=== PATIENT | male | born 1945 | race Caucasian/White ===

== ENCOUNTER 2018-06-23 21:50 | Inpatient (IN) | payer MEDICARE, OTHER ==
[~2018-06-23] VITALS: Ht 188 cm; Wt 114.3 kg
[~2018-06-23 21:50] MED LIST: ALPR0.254 PO; ASPI81TA28 PO; CLC100 PO; DILT240C57 PO; FOLI400T41 PO; ISOS-11 PO; MAGN400T24 PO; METO50TA17 PO; MRLP17 PO; OXY/15 PO; PANT1TAB4 PO; TACR1CAP PO; TAMS0.4C38 PO; WARF2.5T8 PO
[2018-06-23] MEDS ORDERED: ALBUT/IPRATROP 3MG/0.5MG NEB 3 ML VIAL INH STA ×2 (22:11→23:21)
--- NOTE | 2018-06-23 22:14 | EMERGENCY ROOM VISIT NOTE ---
History Report prepared by Liudmila: Dar Mckeon Under the Supervision of: Dr. Brad Murguia M.D. First contact with patient: 22:05 Chief Complaint: SHORTNESS OF BREATH Stated Complaint: DIFF. BREATHING History of Present Illness The patient is a 72 year old male who presents to the Emergency Room with complaints of constant shortness of breath beginning earlier today. The patient states he has a white, productive cough that began yesterday. He reports he used to work in the [employer] when he was younger, and he denies a history of smoking and asthma. The patient notes he has a history of a liver transplant, chemotherapy, and radiation. He denies missing his medications, wearing oxygen, and fevers. Nursing staff reports the patient's O2Sat was 80 in the field, and he was given a Duoneb and 125mg of Solu-Medrol. Source of History: patient Onset: earlier today Position: other (lungs) Quality: other (SOB) Timing: constant Associated Symptoms: + cough, No fevers Review of Systems See HPI for pertinent positives and negatives. A total of ten systems were reviewed and were otherwise negative. Past Medical & Surgical Medical Problems: (1) CAD (coronary artery disease) (2) cancer (3) Cellulitis (4) CHF (congestive heart failure) (5) FTT (failure to thrive) in adult (6) HTN (hypertension) Family History Cancer (Lung) Dyslipidemia Hypertension [place] Social History Smoking Status: Never Smoker Alcohol Use: heavy Drug Use: none Marital Status: Housing Status: lives with family Occupation Status: unemployed Current/Historical Medications Scheduled Alprazolam (Xanax), 1 MG PO AMHS Alprazolam (Xanax), 0.5 TAB PO EVERY AFTERNOON Aspirin (Aspirin Ec), 81 MG PO DAILY Diltiazem Hcl Coated Beads (Diltiazem Hcl Er), 300 MG PO DAILY Furosemide (Furosemide), 40 MG PO DAILY Isosorbide Mononitrate Ext Rel (Imdur Ext Rel), 30 MG PO DAILY Metoprolol Tartrate (Lopressor) (Lopressor), 50 MG PO BID Pantoprazole (Pantoprazole Sodium), 40 MG PO DAILY Pramipexole Dihydrochloride (Pramipexole Dihydrochlori), 1 MG PO BID Sertraline HCl (Sertraline HCl), 150 MG PO DAILY Tamsulosin Hcl (Flomax), 0.4 MG PO QPM Warfarin Sod (Jantoven), 2.5 MG PO UD Scheduled PRN Dicyclomine HCl (Dicyclomine HCl), 20 MG PO BID PRN for ABDOMINAL CRAMPING Oxycodone Hcl (Oxycodone Hcl), 15 MG PO BID PRN for Pain Allergies Coded Allergies: Acetaminophen (Verified Allergy, Unknown, Unknown., 06/24/18) Source-PT list. Morphine (Verified Adverse Reaction, Unknown, FELT LOOPY, 06/24/18) Source-PT list. Physical Exam Vital Signs Date Time Temp Pulse Resp B/P (MAP) Pulse Ox O2 Delivery O2 Flow Rate FiO2 06/23/18 23:07 70 20 122/70 94 Nasal Cannula 3.0 06/23/18 22:22 70 06/23/18 21:50 93 Nasal Cannula 4.0 06/23/18 21:50 90 Room Air 06/23/18 21:50 94 Nasal Cannula 4.0 06/23/18 21:50 36.6 70 20 114/70 90 Room Air Physical Exam Physical Exam GENERAL: He is oriented to person, place, and time. He appears well-developed and well-nourished. He does not appear distressed. HENT: Exam performed. Head: Normocephalic and atraumatic. Right Ear: External ear normal. No mastoid tenderness. Left Ear: External ear normal. No mastoid tenderness. Mouth/Throat: The oropharynx is clear and moist. No trismus in the jaw. No dental abscesses or uvula swelling. No oropharyngeal exudate or tonsillar abscesses. EYES: Conjunctivae and EOM are normal. Pupils are equal, round, and reactive to light. Right eye exhibits no discharge. Left eye exhibits no discharge. No scleral icterus. NECK: Normal range of motion. Neck supple. No JVD present. No spinous process tenderness present. No carotid bruit present. No rigidity. No tracheal deviation and normal range of motion present. No Brudzinski's sign and no Kernig 's sign noted. CV: Normal rate, regular rhythm, normal heart sounds and intact distal pulses. There is no peripheral edema. Palpable radial pulses bue. PULM/CHEST: Effort normal and breath sounds normal. No respiratory distress. No stridor. He has diffuse, bilateral, expiratory wheezes. He has diffuse, bilateral inspiratory rales. Chest Wall: He exhibits no tenderness. ABD: The abdomen is soft. Bowel sounds are normal. He has no distension. No mass is present. There is no tenderness. There is no rebound, no guarding, no Arauz's sign and no tenderness at McBurney's point. Rovsig negative. Scars over the anterior abdominal wall. MUSC/SKEL: Normal range of motion. There is no peripheral edema, tenderness or deformity. LYMPH: No cervical adenopathy. NEURO: He is alert and oriented to person, place, and time. He has normal strength. No cranial nerve deficit or sensory deficit. Coordination and gait normal. GCS eye subscore is 4. GCS verbal subscore is 5. GCS motor subscore is 6. Cerebellar tests wnl. SKIN: Skin is warm and dry. He is not diaphoretic. PSYCH: He has a normal mood and affect. Behavior is normal. Judgment and thought content normal. Medical Decision & Procedures ER Provider Diagnostic Interpretation: X-ray: Per my interpretation, radiologist review. CHEST ONE VIEW PORTABLE CLINICAL HISTORY: Chest pain. Respiratory difficulty. COMPARISON STUDY: Chest radiograph November 02, 2016. FINDINGS: A left subclavian biventricular pacemaker is unchanged in position. There is no pneumothorax or pleural effusion. Moderate cardiomegaly is noted. Right basilar airspace opacity is noted. There is minimal left basilar opacity. IMPRESSION: 1. Bibasilar opacities, greater on the right. The findings favor pneumonia. Radiographic follow up is recommended to ensure resolution. 2. Moderate cardiomegaly. Electronically signed by: Ulcies Ferrell M.D. 06/23/2018 10:29 PM Dictated Date/Time: 06/23/2018 10:27 PM Laboratory Results 06/23/18 22:35 Red Blood Count 4.38, Mean Corpuscular Volume 88.6, Mean Corpuscular Hemoglobin 30.4, Mean Corpuscular Hemoglobin Concent 34.3, Mean Platelet Volume 11.0, Neutrophils (%) (Auto) 65.0, Lymphocytes (%) (Auto) 18.4, Monocytes (%) (Auto) 4.3, Eosinophils (%) (Auto) 11.9, Basophils (%) (Auto) 0.2, Neutrophils # (Auto ) 2.99, Lymphocytes # (Auto) 0.85, Monocytes # (Auto) 0.20, Eosinophils # (Auto ) 0.55, Basophils # (Auto) 0.01 06/23/18 22:35 Test 06/23/18 22:35 White Blood Count 4.61 K/uL (4.8-10.8) Red Blood Count 4.38 M/uL (4.7-6.1) Hemoglobin 13.3 g/dL (14.0-18.0) Hematocrit 38.8 % (42-52) Mean Corpuscular Volume 88.6 fL (80-100) Mean Corpuscular Hemoglobin 30.4 pg (25-34) Mean Corpuscular Hemoglobin Concent 34.3 g/dl (32-36) Platelet Count 137 K/uL (130-400) Mean Platelet Volume 11.0 fL (7.4-10.4) Neutrophils (%) (Auto) 65.0 % Lymphocytes (%) (Auto) 18.4 % Monocytes (%) (Auto) 4.3 % Eosinophils (%) (Auto) 11.9 % Basophils (%) (Auto) 0.2 % Neutrophils # (Auto) 2.99 K/uL (1.4-6.5) Lymphocytes # (Auto) 0.85 K/uL (1.2-3.4) Monocytes # (Auto) 0.20 K/uL (0.11-0.59) Eosinophils # (Auto) 0.55 K/uL (0-0.5) Basophils # (Auto) 0.01 K/uL (0-0.2) RDW Standard Deviation 45.2 fL (36.4-46.3) RDW Coefficient of Variation 13.8 % (11.5-14.5) Immature Granulocyte % (Auto) 0.2 % Immature Granulocyte # (Auto) 0.01 K/uL (0.00-0.02) Prothrombin Time 11.3 SECONDS (9.0-12.0) Prothromb Time International Ratio 1.1 (0.9-1.1) Activated Partial Thromboplast Time 31.1 SECONDS (21.0-31.0) Partial Thromboplastin Ratio 1.2 Venous Blood pH 7.41 (7.36-7.41) Venous Blood Partial Pressure CO2 43 mmHg (38.0-50.0) Venous Blood Partial Pressure O2 30 mmHg Venous Blood HCO3 27 mmol/L Venous Blood Oxygen Saturation < 60.0 % Venous Blood Base Excess 1.8 mEq/L Anion Gap 9.0 mmol/L (3-11) Est Creatinine Clear Calc Drug Dose 53.6 ml/min Estimated GFR () 47.0 Estimated GFR (Non- 40.6 BUN/Creatinine Ratio 14.3 (10-20) Lactic Acid Level 1.7 mmol/L (0.4-2.0) Calcium Level 8.6 mg/dl (8.5-10.1) Total Bilirubin 0.5 mg/dl (0.2-1) Direct Bilirubin 0.2 mg/dl (0-0.2) Aspartate Amino Transf (AST/SGOT) 20 U/L (15-37) Alanine Aminotransferase (ALT/SGPT) 14 U/L (12-78) Alkaline Phosphatase 97 U/L (45-117) Troponin I < 0.015 ng/ml (0-0.045) Pro-B-Type Natriuretic Peptide 1865 pg/ml (0-900) Total Protein 7.8 gm/dl (6.4-8.2) Albumin 3.6 gm/dl (3.4-5.0) Lipase 132 U/L (73-393) Laboratory results reviewed by me Medications Administered Medications (Trade) Dose Ordered Sig/Amanda Route Start Time Stop Time Status Last Admin Dose Admin Albuterol/ Ipratropium (Duoneb) 3 ml NOW STAT INH 06/23/18 22:11 06/23/18 22:12 DC 06/23/18 22:29 3 ML Vancomycin HCl (Vancomycin 1gm Ed/Asu Omnicell) 1 gm NOW STAT IV 06/23/18 22:34 06/23/18 22:35 DC 06/24/18 00:26 1 GM Piperacillin Sod/ Tazobactam Sod (Zosyn Iv) 4.5 gm NOW STAT IV 06/23/18 22:34 06/23/18 22:35 DC 06/23/18 23:07 4.5 GM Sodium Chloride 1,000 ml @ 125 mls/hr Q8H STAT IV 06/23/18 22:35 06/24/18 06:34 06/23/18 23:07 125 MLS/HR Albuterol/ Ipratropium (Duoneb) 3 ml NOW STAT INH 06/23/18 23:21 06/23/18 23:22 DC 06/24/18 00:26 3 ML ECG Per My Interpretation Indication: SOB/dyspnea Rate (beats per minute): 70 Rhythm: other (paced) Findings: no ectopy, other (QRS 162, QTc 522) ED Course 2207: The patient was evaluated in room A02. A complete history and physical exam was performed. 2210: Ordered Duoneb 3ml INH 2231: I reevaluated the patient. Breathing treatments have been started. The chest x-ray shows a right sided pneumonia. Given that he is on tacrolimus for his liver transplant, he will be given broad antibiotic treatment with Vancomycin and Zosyn for HCAP. Blood cultures will be sent. 2234: Ordered Zosyn 4.5gm IV, Vancomycin HCl 1gm IV 2235: Ordered Sodium Chloride 1000 ml @ 125 mls/hr IV 2321: Ordered Duoneb 3ml INH 0007: I discussed the patient's case with Dr. Cleveland [facility] Hospitalist. The patient will be evaluated for further management and care. Medical Decision 2207: The patient was evaluated in room A02. A complete history and physical exam was performed. 2210: Ordered Duoneb 3ml INH 2231: I reevaluated the patient. Breathing treatments have been started. The chest x-ray shows a right sided pneumonia. Given that he is on tacrolimus for his liver transplant, he will be given broad antibiotic treatment with Vancomycin and Zosyn for HCAP. Blood cultures will be sent. 2234: Ordered Zosyn 4.5gm IV, Vancomycin HCl 1gm IV 2235: Ordered Sodium Chloride 1000 ml @ 125 mls/hr IV 2321: Ordered Duoneb 3ml INH 0007: No leukocytosis or lactic acidemia. I discussed the patient's case with Dr. Cleveland [facility] Hospitalist. The patient will be evaluated for further management and care. Medication Reconcilliation Current Medication List: was personally reviewed by me Blood Pressure Screening Patient's blood pressure: Normal blood pressure Blood pressure disposition: Did not require urgent referral Consults Time Called: 0004 Consulting Physician: Dr. Cleveland [facility] Hospitalist Returned Call: 6 I discussed the patient's case with Dr. Cleveland [facility] Hospitalist. The patient will be evaluated for further management and care. Impression Primary Impression: Healthcare-associated pneumonia Additional Impression: Hypoxia Critical Care I have personally spent greater than 31 minutes of critical care time in the direct management of this patient. This includes bedside care, interpretation of diagnostic studies, and testing, discussion with consultants, patient, and family members, and other required patient management activities. This 31 minutes is in excess of all separately billable procedures. Scribe Attestation The scribe's documentation has been prepared under my direction and personally reviewed by me in its entirety. I confirm that the note above accurately reflects all work, treatment, procedures, and medical decision making performed by me. The chart was completed utilizing [employer] Speech voice recognition software. Grammatical errors, random word insertions, pronoun errors, and incomplete sentences are an occasional consequence of this system due to software limitations, ambient noise, and hardware issues. Any formal questions or concerns about the content, text, or information contained within the body of this dictation should be directly addressed to the physician for clarification. Departure Information Dispostion Being Evaluated By Hospitalist Referrals Milton Dia M.D. (PCP) Patient Instructions My [facility] [address] Problem Qualifiers
--- NOTE | 2018-06-23 22:30 | DIAGNOSTIC IMAGING REPORT ---
CHEST ONE VIEW PORTABLE CLINICAL HISTORY: Chest pain. Respiratory difficulty. COMPARISON STUDY: Chest radiograph November 02, 2016. FINDINGS: A left subclavian biventricular pacemaker is unchanged in position. There is no pneumothorax or pleural effusion. Moderate cardiomegaly is noted. Right basilar airspace opacity is noted. There is minimal left basilar opacity. IMPRESSION: 1. Bibasilar opacities, greater on the right. The findings favor pneumonia. Radiographic follow up is recommended to ensure resolution. 2. Moderate cardiomegaly. Electronically signed by: Ulices Ferrell M.D. 06/23/2018 10:29 PM Dictated Date/Time: 06/23/2018 10:27 PM
[2018-06-23] MEDS ORDERED: PIPERACILLIN/TAZOBACTAM 4.5 GM/100ML D5W IV STA (22:34)
[2018-06-23] MEDS ORDERED: VANCOMYCIN 1GM ED/ASU OMNICELL IV STA (22:34)
[2018-06-23] MEDS ORDERED: SODIUM CHLORIDE 0.9% 1000ML 1,000 ML IV STA (22:35)
[2018-06-23 23:00] LABS: BASO % 0.2 %; BASO ABS # 0.01 K/uL (0-0.2); EOS % 11.9 %; EOS ABS # 0.55 K/uL (0-0.5); HEMATOCRIT 38.8 % (42-52); HEMOGLOBIN 13.3 g/dL (14.0-18.0); IG# 0.01 K/uL (0.00-0.02); LYMPH % 18.4 %; LYMPH ABS # 0.85 K/uL (1.2-3.4); MEAN CELL VOLUME 88.6 fL (80-100); MEAN CORPUSCULAR HEMOGLOBIN 30.4 pg (25-34); MEAN CORPUSCULAR HGB CONC 34.3 g/dl (32-36); MONO % 4.3 %; NEUT ABS # 2.99 K/uL (1.4-6.5); PLATELET COUNT 137 K/uL (130-400); RED CELL DISTRIBUTION WIDTH CV 13.8 % (11.5-14.5); RED CELL DISTRIBUTION WIDTH SD 45.2 fL (36.4-46.3); WHITE BLOOD COUNT 4.61 K/uL (4.8-10.8)
[2018-06-23 23:13] LABS: INR 1.1 (0.9-1.1); PTT PATIENT 31.1 SECONDS (21.0-31.0)
[2018-06-23 23:22] LABS: ALBUMIN 3.6 gm/dl (3.4-5.0); ALKALINE PHOSPHATASE 97 U/L (45-117); ALT/SGPT 14 U/L (12-78); AST/SGOT 20 U/L (15-37); BLOOD UREA NITROGEN 24 mg/dl (7-18); CALCIUM 8.6 mg/dl (8.5-10.1); CARBON DIOXIDE 23 mmol/L (21-32); CREATININE 1.64 mg/dl (0.60-1.40); GLUCOSE 111 mg/dl (70-99); LIPASE 132 U/L (73-393); POTASSIUM 3.6 mmol/L (3.5-5.1); SODIUM 140 mmol/L (136-145); TOTAL PROTEIN 7.8 gm/dl (6.4-8.2)
[2018-06-24] VITALS (11 sets, daily range): BP systolic 118–177; BP diastolic 63–82; PULSE 70–99; TEMP 36.4–36.9; O2SAT 92–100; Ht 188 cm; Wt 114.3 kg
[2018-06-24] MEDS ORDERED: METO50TA16 PO (00:13)
[2018-06-24] MEDS ORDERED: LSX40 PO (00:13)
[2018-06-24] MEDS ORDERED: ZLF/100 PO (00:13)
[2018-06-24] MEDS ORDERED: ISOS30TA35 PO (00:14)
[2018-06-24] MEDS ORDERED: DILT300C PO (00:15)
[2018-06-24] MEDS ORDERED: ALPR1TAB3 PO (00:16)
[2018-06-24] MEDS ORDERED: ALPR-385 PO (00:16)
[2018-06-24] MEDS ORDERED: PANT40TA2 PO (00:18)
[2018-06-24] MEDS ORDERED: PRAM1TAB10 PO (00:18)
[2018-06-24] MEDS ORDERED: DICY1TAB25 PO (00:21)
[2018-06-24] MEDS ORDERED: ONDANSETRON INJ 2 MG/ML 2 ML VIAL IV PRN (00:45)
[2018-06-24] MEDS ORDERED: DICYCLOMINE HCL 20 MG TAB PO PRN (00:45)
[2018-06-24] MEDS ORDERED: VANCOMYCIN CONSULT ACTIVE PRN (00:45)
[2018-06-24] MEDS ORDERED: PIPERACILL/TAZOBAC CONSULT ACTIVE PRN (00:45)
--- NOTE | 2018-06-24 00:54 | History and Physical ---
History & Physical Date & Time of Service: Jun 24, 2018 at 00:52 Chief Complaint: Diff. Breathing Primary Care Physician: Milton Dia M.D. History of Present Illness Source: patient, hospital records Patient is a 72 year old male that presents with a past medical history of hypertension, atrial fibrillation, CKD stage 3, chronic diastolic CHF, HTN, Liver transplant on Prograf and tacrolimus, BPH, and depression that presents with worsening shortness of breath since this afternoon. The patient was at home when he began to develop progressive shortness of breath with cough. His cough is productive of white sputum. He denies any fevers, chills, sweats, chest pain, lower extremity pain, or any other acute complaints. The patient does have atrial fibrillation but denies any associated palpitations. 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 Past Medical/Surgical History Medical Problems: (1) Acute kidney injury (2) Acute pneumonia (3) Acute renal failure (4) Acute respiratory failure with hypoxia (5) Ambulatory dysfunction (6) Arrhythmia as indication for cardiac pacemaker replacement (7) CAD (coronary artery disease) (8) cancer (9) Cellulitis (10) Cellulitis of right leg (11) CHF (congestive heart failure) (12) CHF (congestive heart failure) (13) CKD (chronic kidney disease) (14) Confusion (15) Confusion (16) CVA (cerebral vascular accident) (17) CVA (cerebral vascular accident) (18) Diarrhea (19) FTT (failure to thrive) in adult (20) HTN (hypertension) (21) Immunocompromised patient (22) liver transplant (23) CT (myocardial infarction) (24) TIA (transient ischemic attack) (25) Tinea corporis (26) Weakness Family History Cancer (Lung) Dyslipidemia Hypertension CT Social History Smoking Status: Never Smoker Smokeless Tobacco Use: No Alcohol Use: none Drug Use: none Marital Status: Housing status: lives alone Occupational Status: unemployed Immunizations History of Influenza Vaccine: Unknown History of Tetanus Vaccine?: Unknown History of Pneumococcal: Unknown History of Hepatitis B Vaccine: Unknown Allergies Coded Allergies: Acetaminophen (Verified Allergy, Unknown, Unknown., 06/24/18) Source-PT list. Morphine (Verified Adverse Reaction, Unknown, FELT LOOPY, 06/24/18) Source-PT list. Home Medications Scheduled Alprazolam (Xanax), 1 MG PO AMHS Alprazolam (Xanax), 0.5 TAB PO EVERY AFTERNOON Aspirin (Aspirin Ec), 81 MG PO DAILY Diltiazem Hcl Coated Beads (Diltiazem Hcl Er), 300 MG PO DAILY Furosemide (Furosemide), 40 MG PO DAILY Isosorbide Mononitrate Ext Rel (Imdur Ext Rel), 30 MG PO DAILY Metoprolol Tartrate (Lopressor) (Lopressor), 50 MG PO BID Pantoprazole (Pantoprazole Sodium), 40 MG PO DAILY Pramipexole Dihydrochloride (Pramipexole Dihydrochlori), 1 MG PO BID Sertraline HCl (Sertraline HCl), 150 MG PO DAILY Tamsulosin Hcl (Flomax), 0.4 MG PO QPM Warfarin Sod (Jantoven), 2.5 MG PO UD Scheduled PRN Dicyclomine HCl (Dicyclomine HCl), 20 MG PO BID PRN for ABDOMINAL CRAMPING Oxycodone Hcl (Oxycodone Hcl), 15 MG PO BID PRN for Pain Review of Systems Constitutional: No fever, No chills, No sweats, No weight loss, No fatigue Respiratory: + cough, + sputum, + wheezing, + shortness of breath, + dyspnea on exertion Cardiovascular: No chest pain, No palpitations Abdomen: No pain, No nausea, No vomiting, No diarrhea, No constipation Genitourinary - Male: No hematuria, No dysuria Endocrine: No fatigue, No excessive urination Integumentary: No rash, No itch Physical Exam Vital Signs Date Time Temp Pulse Resp B/P (MAP) Pulse Ox O2 Delivery O2 Flow Rate FiO2 06/23/18 23:07 70 20 122/70 94 Nasal Cannula 3.0 06/23/18 22:22 70 06/23/18 21:50 93 Nasal Cannula 4.0 06/23/18 21:50 90 Room Air 06/23/18 21:50 94 Nasal Cannula 4.0 06/23/18 21:50 36.6 70 20 114/70 90 Room Air General Appearance: WD/WN, no apparent distress Head: normocephalic, atraumatic Eyes: normal inspection, sclerae normal Neck: supple, no carotid bruits Respiratory/Chest: chest non-tender, no respiratory distress, no accessory muscle use, + rhonchi, + wheezing Cardiovascular: regular rate, rhythm, no edema, no gallop Abdomen/GI: normal bowel sounds, non tender, soft Back: normal inspection, no CVA tenderness Extremities/Musculoskelatal: no calf tenderness, no pedal edema Neurologic/Psych: alert, normal mood/affect, oriented x 3 Diagnostics Laboratory Results Results Past 24 Hours Test 06/23/18 22:35 Range/Units White Blood Count 4.61 4.8-10.8 K/uL Red Blood Count 4.38 4.7-6.1 M/uL Hemoglobin 13.3 14.0-18.0 g/dL Hematocrit 38.8 42-52 % Mean Corpuscular Volume 88.6 80-100 fL Mean Corpuscular Hemoglobin 30.4 25-34 pg Mean Corpuscular Hemoglobin Concent 34.3 32-36 g/dl Platelet Count 137 130-400 K/uL Mean Platelet Volume 11.0 7.4-10.4 fL Neutrophils (%) (Auto) 65.0 % Lymphocytes (%) (Auto) 18.4 % Monocytes (%) (Auto) 4.3 % Eosinophils (%) (Auto) 11.9 % Basophils (%) (Auto) 0.2 % Neutrophils # (Auto) 2.99 1.4-6.5 K/uL Lymphocytes # (Auto) 0.85 1.2-3.4 K/uL Monocytes # (Auto) 0.20 0.11-0.59 K/uL Eosinophils # (Auto) 0.55 0-0.5 K/uL Basophils # (Auto) 0.01 0-0.2 K/uL RDW Standard Deviation 45.2 36.4-46.3 fL RDW Coefficient of Variation 13.8 11.5-14.5 % Immature Granulocyte % (Auto) 0.2 % Immature Granulocyte # (Auto) 0.01 0.00-0.02 K/uL Prothrombin Time 11.3 9.0-12.0 SECONDS Prothromb Time International Ratio 1.1 0.9-1.1 Activated Partial Thromboplast Time 31.1 21.0-31.0 SECONDS Partial Thromboplastin Ratio 1.2 Venous Blood pH 7.41 7.36-7.41 Venous Blood Partial Pressure CO2 43 38.0-50.0 mmHg Venous Blood Partial Pressure O2 30 mmHg Venous Blood HCO3 27 mmol/L Venous Blood Oxygen Saturation < 60.0 % Venous Blood Base Excess 1.8 mEq/L Sodium Level 140 136-145 mmol/L Potassium Level 3.6 3.5-5.1 mmol/L Chloride Level 108 98-107 mmol/L Carbon Dioxide Level 23 21-32 mmol/L Anion Gap 9.0 3-11 mmol/L Blood Urea Nitrogen 24 7-18 mg/dl Creatinine 1.64 0.60-1.40 mg/dl Est Creatinine Clear Calc Drug Dose 53.6 ml/min Estimated GFR () 47.0 Estimated GFR (Non- 40.6 BUN/Creatinine Ratio 14.3 10-20 Random Glucose 111 70-99 mg/dl Lactic Acid Level 1.7 0.4-2.0 mmol/L Calcium Level 8.6 8.5-10.1 mg/dl Total Bilirubin 0.5 0.2-1 mg/dl Direct Bilirubin 0.2 0-0.2 mg/dl Aspartate Amino Transf (AST/SGOT) 20 15-37 U/L Alanine Aminotransferase (ALT/SGPT) 14 12-78 U/L Alkaline Phosphatase 97 45-117 U/L Troponin I < 0.015 0-0.045 ng/ml Pro-B-Type Natriuretic Peptide 1865 0-900 pg/ml Total Protein 7.8 6.4-8.2 gm/dl Albumin 3.6 3.4-5.0 gm/dl Lipase 132 73-393 U/L Microbiology Results 06/23/18 Blood Culture, Received Pending 06/23/18 Blood Culture, Received Pending Impression Assessment and Plan Patient is a 72 year old male that presents with a past medical history of hypertension, atrial fibrillation, CKD stage 3, chronic diastolic CHF, HTN, Liver transplant on Prograf and tacrolimus, BPH, and depression that presents with worsening shortness of breath since this afternoon Acute Hypoxic Respiratory Failure - CXR: Bibasilar Opacities - CT Chest - Oxygen as needed to maintain SpO2 > 90% - Duonebs - Admit Telemetry HCAP - Vancomycin - Zosyn - Blood Cultures x 2 CKD Stage 3 - Cr 1.64 - Daily BMP Chronic Atrial Fibrillation - Continue home Metoprolol and Diltiazem - Continue home Coumadin --> Subtherapeutic INR of 1.1 - Heparin for time being due to INR Liver Transplant - Currently on Prograf and Tacrolimus - Broad spectrum antibiotic coverage as above due to immunocompromised state Chronic Diastolic CHF/ HTN/ BPH - Continue home meds DVT - Heparin Code Status - Full Resuscitation Attending addendum: I have physically seen this patient, have supervised the medical residents activities, and agree with the H&P unless as otherwise noted. Assessment and Plan: Acute respiratory failure with hypoxia/bilateral pneumonia right greater than left-- Admit to monitored bed. Vancomycin IV per pharmacokinetic monitoring Zosyn 3.375 mg IV every 8 hours Duonebs every 4 hours while awake and every 2 hours when necessary. Solu-Medrol 40 mg IV every 8 hours Guaifenesin extended release 600 mg by mouth twice a day Nasal cannula oxygen titrate to keep pulse ox greater than or equal to 92% Chronic atrial fibrillation/hypertension/chronic diastolic CHF-- Continue metoprolol, diltiazem, and IMDUR Continue Coumadin, with heparin bridge due to subtherapeutic levels. Post liver transplant-- Continue Prograf and tacrolimus. Broad-spectrum antibiotics as above. Remaining notes and orders as noted above. Advanced Directives Existing Advance Directive: No Existing Living Will: No Existing Power of Mesmerist: No Resuscitation Status Full Resuscitation VTE Prophylaxis Will order VTE Prophylaxis: Yes Social Service Consult None Apply Resident Tracking Resident Involvement: Resident Care Provided Care Provided: Adult Hospital Medicine
[2018-06-24] MEDS ORDERED: HEPARIN IV LOW DOSE NO BOLUS SCH (01:34)
[2018-06-24] MEDS ORDERED: HEPARIN 25000 UNIT/500 ML D5W ONE (01:43)
[2018-06-24] MEDS ORDERED: VANCOMYCIN IV 1,250 MG in SODIUM CHLORIDE 0.9% 250ML 250 ML IV STA (03:41)
[2018-06-24] MEDS ORDERED: NURSING VERBAL MED ORDER ONE (03:45)
[2018-06-24] MEDS: HEPARIN 25,000 UNIT/500ML D5W 500 ML IV SCH ×2 (04:11→17:39)
[2018-06-24] MEDS: PIPERACILL/TAZOBAC IV 3.375 GM in DEXTROSE 5% 100ML 100 ML IV SCH ×3 (05:55→23:55)
[2018-06-24 06:22] LABS: EOS % 1.5 %; EOS ABS # 0.06 K/uL (0-0.5); HEMATOCRIT 37.8 % (42-52); IG# 0.01 K/uL (0.00-0.02); LYMPH % 7.3 %; LYMPH ABS # 0.29 K/uL (1.2-3.4); MEAN CELL VOLUME 88.1 fL (80-100); MEAN CORPUSCULAR HEMOGLOBIN 30.3 pg (25-34); MEAN CORPUSCULAR HGB CONC 34.4 g/dl (32-36); MEAN PLATELET VOLUME 10.3 fL (7.4-10.4); MONO % 0.3 %; MONO ABS # 0.01 K/uL (0.11-0.59); NEUT % 90.6 %; NEUT ABS # 3.63 K/uL (1.4-6.5); PLATELET COUNT 106 K/uL (130-400); RED CELL DISTRIBUTION WIDTH CV 13.8 % (11.5-14.5); RED CELL DISTRIBUTION WIDTH SD 44.6 fL (36.4-46.3)
[2018-06-24 06:49] LABS: CALCIUM 8.5 mg/dl (8.5-10.1); CREATININE 1.54 mg/dl (0.60-1.40); POTASSIUM 3.5 mmol/L (3.5-5.1)
[2018-06-24] MEDS: ALBUT/IPRATROP 3MG/0.5MG NEB 3 ML VIAL INH SCH ×4 (07:00→19:06)
--- NOTE | 2018-06-24 08:00 | Family Medicine Progress Note ---
Progress Note Date of Service Jun 24, 2018. Subjective Pain: 0/10 PO Intake: Tolerating questionable aspiration Patient is a 72 year old male that presents with a past medical history of hypertension, atrial fibrillation, CKD stage 3, chronic diastolic CHF, HTN, Liver transplant on Prograf and tacrolimus, BPH, and depression that presents with worsening shortness of breath since this afternoon. The patient was at home when he began to develop progressive shortness of breath with cough. His cough is productive of white sputum. He denies any fevers, chills, sweats, chest pain, lower extremity pain, or any other acute complaints. The patient does have atrial fibrillation but denies any associated palpitations. 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 Patient resting comfortably this morning during the exam, no complaints over night, tolerating diet, toileting appropriately. Constitutional: + fever, + chills, + sweats ENT: + problem reported (difficulty swallowing food), No hearing loss Respiratory: + cough, + sputum, + wheezing Cardiovascular: No chest pain, No edema, No claudication Abdomen: No pain, No nausea, No vomiting, No diarrhea Musculoskeletal: + problem reported (lack of feeling in lower extremiteies) , No joint pain, No muscle pain, No calf pain Psychiatric: No depression symptoms, No anhedonism Heme: No abnormal bleeding/bruising, No clotting problems Endo: No fatigue, No excessive thirst Skin: + new/changing skin lesions (left 2 digit black ), No rash, No itch All Other Systems: Reviewed and Negative Medications Current Inpatient Medications Medications (Trade) Dose Ordered Sig/Amanda Route Start Time Stop Time Status Last Admin Dose Admin Ondansetron HCl (Zofran Inj) 4 mg Q6H PRN IV 06/24/18 00:45 07/24/18 00:44 Vancomycin HCl (Consult) 1 ea UD PRN N/A 06/24/18 00:45 07/24/18 00:44 Piperacillin Sod/ Tazobactam Sod 3.375 gm/Dextrose 115 ml @ 28.75 mls/ hr Q8 IV 06/24/18 06:00 06/26/18 05:59 06/24/18 05:55 28.75 MLS/HR Miscellaneous Information (Consult) 1 ea UD PRN N/A 06/24/18 00:45 07/24/18 00:44 Albuterol/ Ipratropium (Duoneb) 3 ml QIDR INH 06/24/18 08:00 07/24/18 07:59 06/24/18 07:00 3 ML Alprazolam (Xanax Tab) 1 mg AMHS PO 06/24/18 09:00 07/24/18 08:59 Aspirin (Ecotrin Tab) 81 mg DAILY PO 06/24/18 09:00 07/24/18 08:59 Dicyclomine HCl (Bentyl Tab) 20 mg BID PRN PO 06/24/18 00:45 07/24/18 00:44 Diltiazem HCl (Cardizem Cd Cap) 300 mg DAILY PO 06/24/18 09:00 07/24/18 08:59 Furosemide (Lasix Tab) 40 mg DAILY PO 06/24/18 09:00 07/24/18 08:59 Isosorbide Mononitrate (Imdur Ext Rel Tab) 30 mg DAILY PO 06/24/18 09:00 07/24/18 08:59 Metoprolol Tartrate (Lopressor Tab) 50 mg BID PO 06/24/18 09:00 07/24/18 08:59 Pantoprazole Sodium (Protonix Tab) 40 mg DAILY PO 06/24/18 09:00 07/24/18 08:59 Sertraline HCl (Zoloft Tab) 150 mg DAILY PO 06/24/18 09:00 07/24/18 08:59 Tamsulosin HCl (Flomax Cap) 0.4 mg QPM PO 06/24/18 21:00 07/24/18 20:59 Warfarin Sodium (Coumadin Tab) 2.5 mg UD PO 06/24/18 00:45 07/24/18 00:44 UNV Heparin Sodium/ Dextrose 500 ml @ 35 mls/hr [id number] IV 06/24/18 03:45 07/24/18 03:44 06/24/18 04:11 35 MLS/HR Objective Vital Signs Date Time Temp Pulse Resp B/P (MAP) Pulse Ox O2 Delivery O2 Flow Rate FiO2 06/24/18 07:00 70 20 96 Room Air 06/24/18 04:37 95 Room Air 7/28/18 03:55 36.9 70 17 130/76 (94) 92 Room Air 06/24/18 02:40 36.5 75 18 140/76 96 Room Air 06/24/18 02:04 72 19 111/63 93 Nasal Cannula 3.0 06/24/18 01:05 70 17 115/72 94 Nasal Cannula 3.0 06/23/18 23:07 70 20 122/70 94 Nasal Cannula 3.0 06/23/18 22:22 70 06/23/18 21:50 93 Nasal Cannula 4.0 06/23/18 21:50 90 Room Air 06/23/18 21:50 94 Nasal Cannula 4.0 06/23/18 21:50 36.6 70 20 114/70 90 Room Air Physical Exam General Appearance: WD/WN, no apparent distress Eyes: normal inspection, sclerae normal ENT: normal ENT inspection Neck: supple, thyroid normal, no carotid bruits, trachea midline Respiratory/Chest: chest non-tender, no respiratory distress, no accessory muscle use, + wheezing (b/l significant ) Cardiovascular: no edema, no murmur, + pertinent finding (Paced) Abdomen: normal bowel sounds, non tender, soft Extremities: non-tender, no pedal edema, no calf tenderness, normal capillary refill Neurologic/Psychiatric: alert, normal mood/affect, oriented x 3 Skin: normal color, warm/dry, no rash, + pertinent finding (left 2 digit on foot is dark ) Laboratory Results Date/Time Source Procedure Growth Status 06/23/18 22:39 Blood Blood Culture Pending Received 06/23/18 22:31 Blood Blood Culture Pending Received Last Resulted 06/24/18 06:02 Red Blood Count 4.29, Mean Corpuscular Volume 88.1, Mean Corpuscular Hemoglobin 30.3, Mean Corpuscular Hemoglobin Concent 34.4, Mean Platelet Volume 10.3, Neutrophils (%) (Auto) 90.6, Lymphocytes (%) (Auto) 7.3, Monocytes (%) (Auto) 0.3, Eosinophils (%) (Auto) 1.5, Basophils (%) (Auto) 0.0, Neutrophils # (Auto) 3.63, Lymphocytes # (Auto) 0.29, Monocytes # (Auto) 0.01, Eosinophils # (Auto) 0.06, Basophils # (Auto) 0.00 Last Resulted 06/24/18 06:02 Past 24 Hours Test 06/23/18 22:35 Range/Units Prothromb Time International Ratio 1.1 0.9-1.1 Prothrombin Time 11.3 9.0-12.0 SECONDS Troponin I < 0.015 0-0.045 ng/ml Assessment and Plan Patient is a 72 year old male that presents with a past medical history of hypertension, atrial fibrillation, CKD stage 3, chronic diastolic CHF, HTN, Liver transplant on Prograf and tacrolimus, 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 Associated basilar airspace opacities. 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 "pills get stuck in my throat and burn" - Vancomycin - Zosyn - Blood Cultures x 2 pendign CKD Stage 3 - Cr 1.64 - Daily BMP Chronic Atrial Fibrillation - Continue home Metoprolol and Diltiazem - Continue home Coumadin --> Subtherapeutic INR of 1.1 - Heparin for time being due to INR - No caffiene Liver Transplant - Prograf was not in med rec restarted this afternoon - Broad spectrum antibiotic coverage as above due to immunocompromised state Chronic Diastolic CHF/ HTN/ BPH - Continue home meds Venous Stasis -left foot 2nd digit is violaceous likely 2/2 venous stasis changes Family HX of liver cirrhosis/disease - Pt has liver transplant, of hcc, daughter having liver problems, son 2/2 liver cirrhosis - consider environmental exposures, s. bovis? DVT - Heparin Code Status - Full Resuscitation Resident Physician Supervision Note: I interviewed and examined the patient. Discussed with Dr. Diehl and agree with findings and plan as documented in the note. Any exceptions or clarifications are listed here: None Documented By: Franko Bhatt feeling better than last night breathing unlabored vitals noted nad fatigued appearing does not remember his prograf dosing - dtr called to make sure he was getting it but did not leave the dose, dr diehl tried to call back LM but no call back yet finally called his listed pharmacy - they were able to relay dosing - ordered to start philippe pneumonia - concern on aspiration - abx, improving, speech eval. -could also be HCAP but aspiration seems more likely - continue to follow but low threshold to be able to dc vanc otherwise as above Continued [facility] stay due to: multiple IV medications needed Discharge planning: home Resident Tracking Resident Involvement: Resident Care Provided Care Provided: Adult Hospital Medicine
--- NOTE | 2018-06-24 08:49 | DIAGNOSTIC IMAGING REPORT ---
(CHEST) THORAX WITHOUT CLINICAL HISTORY: Pneumonia. History of cancer. COMPARISON STUDY: Chest x-ray dated 06/23/2018 CT DOSE: 1171.25 mGy.cm TECHNIQUE: CT of the thorax was performed from the thoracic inlet to the lung bases. Images are reviewed in the axial, sagittal, and coronal planes. IV contrast was not administered for this examination. A dose lowering technique was utilized adhering to the principles of ALARA. FINDINGS: Thyroid: There is a multinodular left lobe thyroid goiter containing calcifications. There is substernal extension. Thoracic aorta: There is mild dilatation of the ascending thoracic aorta which measures 41 mm. Heart: The heart is enlarged. There are coronary artery calcifications. Lungs and pleural spaces: There is respiratory motion artifact. There is lower lobe bronchial wall thickening and mucous plugging. There are bilateral dependent airspace opacities. There is right middle lobe volume loss and bronchial wall thickening. There is a 7 mm right upper lobe groundglass pulmonary nodule. Mediastinum: Mediastinal lymph nodes are the upper limits of normal in size. Niecy: There is bilateral hilar enlargement, thigh which is limited due to the absence of intravenous contrast. Mild hilar lymph node enlargement is suspected along with prominent central pulmonary arteries Axilla: There are mildly prominent axillary lymph nodes which demonstrate normal fatty niecy Upper abdomen: The liver has a cirrhotic morphology. There is splenomegaly. Skeletal structures: There are no lytic or blastic osseous lesions. IMPRESSION: 1. Bilateral lower lobe bronchial wall thickening with mucous plugging. 2. Associated basilar airspace opacities. 3. Right middle lobe volume loss of bronchial wall thickening 4. 7 mm right upper lobe groundglass pulmonary nodule 5. Multinodular left lobe thyroid goiter with some sternal extension 6. Cardiomegaly and coronary artery calcifications Please refer to below summary of Fleischner criteria recommendations for follow-up of incidental CT nodules (Viviane Desai, Guidelines for management of small pulmonary nodules detected on CT scans: A statement from the Fleischner Society, Radiology 237: [phone].) SOLID NODULES Solitary nodule size: <6 mm * low risk patients: no follow-up needed * high risk patients: optional CT at 12 months Solitary nodule size: 6-8 mm * low risk patients: follow-up at 6-12 months, then consider further follow-up at 18-24 months * high risk patients: initial follow-up CT at 6-12 months and then at 18-24 months if no change Solitary nodule size: >8 mm * either low or high risk patients - consider follow-up CT at 3 months, and/or CT-PET, and/or biopsy Multiple nodules size: <6 mm * low risk patients: no routine follow-up * high risk patients: optional CT at 12 months Multiple nodules size: 6-8 mm * low risk patients: follow-up at 3-6 months, then consider further follow-up at 18-24 months * high risk patients: follow-up at 3-6 months, then at 18-24 months if no change Multiple nodules size: >8 mm * low risk patients: follow-up at 3-6 months, then consider further follow-up at 18-24 months * high risk patients: follow-up at 3-6 months, then at 18-24 months if no change Note: newly detected indeterminate nodule in persons 35 years of age or older. * low risk patients: minimal or absent history of smoking and/or other known risk factors * high risk patients: history of smoking or of other known risk factors (e.g. first degree relative with lung cancer, or exposure to asbestos, radon, uranium) * if a nodule up to 8 mm is partly solid or is ground glass further follow-up is required after 24 months to exclude possible slow growing adenocarcinoma ([place]) SUBSOLID NODULES Solitary pure ground-glass nodule * nodule size <6 mm - no CT follow-up required * nodule size >=6 mm - follow-up CT at 6-12 months, then every 2 years until 5 years Solitary part-solid nodule * nodule size <6 mm - no CT follow-up required * nodule size >=6 mm - follow-up CT at 3-6 months. If unchanged, and solid component remains <6 mm, then annual follow-up for 5 years Multiple subsolid nodules * nodule size <6 mm - follow-up CT at 3-6 months, consider further follow-up at 2 and 4 years if stable * nodule size >=6 mm - follow-up CT at 3-6 months, subsequent management based on the most suspicious nodule(s) Electronically signed by: Kashif Preciado M.D. 06/24/2018 8:47 AM Dictated Date/Time: 06/24/2018 8:40 AM
[2018-06-24] MEDS: ASPIRIN 81 MG ECTAB PO SCH (09:04)
[2018-06-24] MEDS: DILTIAZEM HCL 300 MG CAPCR PO SCH (09:04)
[2018-06-24] MEDS: ISOSORBIDE MONONITRATE 30 MG TABCR PO SCH (09:04)
[2018-06-24] MEDS: SERTRALINE HCL 100 MG TAB PO SCH (09:04)
[2018-06-24] MEDS: FUROSEMIDE 40 MG TAB PO SCH (09:05)
[2018-06-24] MEDS: METOPROLOL TARTRATE 50 MG TAB PO SCH ×2 (09:05→19:32)
[2018-06-24] MEDS: PANTOprazole SOD 40 MG TAB PO SCH (09:05)
[2018-06-24 09:10] LABS: PTT PATIENT 142.4 SECONDS (21.0-31.0)
[2018-06-24] MEDS: ALPRAZOLAM 0.5 MG TAB PO SCH ×2 (09:13→19:31)
--- NOTE | 2018-06-24 14:51 | Pharmacy Progress Note ---
Pharmacy Antibiotic Consult Date of Service: Jun 24, 2018. Pharmacy Dosing Scope Pharmacy is consulted to initiate VANCOMYCIN / ZOSYN IV dosing therapy, order appropriate labs and adjust drug dose/frequency. Subjective The patient is a 72 year old male admitted on Jun 24, 2018 at 00:48. Objective Height (Feet): 6 Height (Inches): 2.00 Weight (Kilograms): 115.100 Lab Results (24hrs): Test 06/23/18 22:35 06/24/18 06:02 06/24/18 08:17 06/24/18 10:08 White Blood Count 4.61 K/uL (4.8-10.8) 4.00 K/uL (4.8-10.8) Red Blood Count 4.38 M/uL (4.7-6.1) 4.29 M/uL (4.7-6.1) Hemoglobin 13.3 g/dL (14.0-18.0) 13.0 g/dL (14.0-18.0) Hematocrit 38.8 % (42-52) 37.8 % (42-52) Mean Corpuscular Volume 88.6 fL (80-100) 88.1 fL (80-100) Mean Corpuscular Hemoglobin 30.4 pg (25-34) 30.3 pg (25-34) Mean Corpuscular Hemoglobin Concent 34.3 g/dl (32-36) 34.4 g/dl (32-36) Platelet Count 137 K/uL (130-400) 106 K/uL (130-400) Mean Platelet Volume 11.0 fL (7.4-10.4) 10.3 fL (7.4-10.4) Neutrophils (%) (Auto) 65.0 % 90.6 % Lymphocytes (%) (Auto) 18.4 % 7.3 % Monocytes (%) (Auto) 4.3 % 0.3 % Eosinophils (%) (Auto) 11.9 % 1.5 % Basophils (%) (Auto) 0.2 % 0.0 % Neutrophils # (Auto) 2.99 K/uL (1.4-6.5) 3.63 K/uL (1.4-6.5) Lymphocytes # (Auto) 0.85 K/uL (1.2-3.4) 0.29 K/uL (1.2-3.4) Monocytes # (Auto) 0.20 K/uL (0.11-0.59) 0.01 K/uL (0.11-0.59) Eosinophils # (Auto) 0.55 K/uL (0-0.5) 0.06 K/uL (0-0.5) Basophils # (Auto) 0.01 K/uL (0-0.2) 0.00 K/uL (0-0.2) RDW Standard Deviation 45.2 fL (36.4-46.3) 44.6 fL (36.4-46.3) RDW Coefficient of Variation 13.8 % (11.5-14.5) 13.8 % (11.5-14.5) Immature Granulocyte % (Auto) 0.2 % 0.3 % Immature Granulocyte # (Auto) 0.01 K/uL (0.00-0.02) 0.01 K/uL (0.00-0.02) Prothrombin Time 11.3 SECONDS (9.0-12.0) Prothromb Time International Ratio 1.1 (0.9-1.1) Venous Blood pH 7.41 (7.36-7.41) Venous Blood Partial Pressure CO2 43 mmHg (38.0-50.0) Venous Blood Partial Pressure O2 30 mmHg Venous Blood HCO3 27 mmol/L Venous Blood Oxygen Saturation < 60.0 % Venous Blood Base Excess 1.8 mEq/L Sodium Level 140 mmol/L (136-145) 140 mmol/L (136-145) Potassium Level 3.6 mmol/L (3.5-5.1) 3.5 mmol/L (3.5-5.1) Chloride Level 108 mmol/L (98-107) 109 mmol/L (98-107) Carbon Dioxide Level 23 mmol/L (21-32) 24 mmol/L (21-32) Anion Gap 9.0 mmol/L (3-11) 7.0 mmol/L (3-11) Blood Urea Nitrogen 24 mg/dl (7-18) 22 mg/dl (7-18) Creatinine 1.64 mg/dl (0.60-1.40) 1.54 mg/dl (0.60-1.40) Est Creatinine Clear Calc Drug Dose 53.6 ml/min 56.8 ml/min Estimated GFR () 47.0 50.8 Estimated GFR (Non- 40.6 43.8 BUN/Creatinine Ratio 14.3 (10-20) 14.3 (10-20) Random Glucose 111 mg/dl (70-99) 207 mg/dl (70-99) Lactic Acid Level 1.7 mmol/L (0.4-2.0) Calcium Level 8.6 mg/dl (8.5-10.1) 8.5 mg/dl (8.5-10.1) Total Bilirubin 0.5 mg/dl (0.2-1) Direct Bilirubin 0.2 mg/dl (0-0.2) Aspartate Amino Transf (AST/SGOT) 20 U/L (15-37) Alanine Aminotransferase (ALT/SGPT) 14 U/L (12-78) Alkaline Phosphatase 97 U/L (45-117) Troponin I < 0.015 ng/ml (0-0.045) Pro-B-Type Natriuretic Peptide 1865 pg/ml (0-900) Total Protein 7.8 gm/dl (6.4-8.2) Albumin 3.6 gm/dl (3.4-5.0) Lipase 132 U/L (73-393) Activated Partial Thromboplast Time 142.4 SECONDS (21.0-31.0) 99.0 SECONDS (21.0-31.0) Partial Thromboplastin Ratio 5.5 3.8 Micro Results: * 06/23/18 -- Blood Cx x 2 -- pending Assessment & Plan 72yo male started on VANCOMYCIN / ZOSYN empirically for possible HCAP. Renal function is near baseline (SCR ~1.5). VANCOMYCIN: * Loading dose: VANCOMYCIN 2250mg (19 mg/kg) IV X 1 dose then VANCOMYCIN 1500mg (13mg/kg) IV every 18 hours. * Estimated Pk parameters: Vd ~0.6 L/kg Ke ~0.052 t1/2 ~13 hours * Goal trough level estimate: between 15 - 20 mcg/mL. * Trough level has been ordered for: @ 0800. Pharmacy will continue to follow and will adjust dose/frequency as necessary. Thank you
[2018-06-24] MEDS ORDERED: TACROLIMUS 1 MG CAP PO ONE (17:00)
[2018-06-24 17:39] LABS: PTT PATIENT 83.3 SECONDS (21.0-31.0)
[2018-06-24] MEDS: TAMSULOSIN HCL 0.4 MG CAP PO SCH (19:32)
[2018-06-24] MEDS ORDERED: TACROLIMUS 0.5 MG CAP PO SCH (21:00)
[2018-06-24] MEDS ORDERED: TACROLIMUS 1 MG CAP PO SCH (21:00)
[2018-06-24] MEDS: VANCOMYCIN IV 1,500 MG in SODIUM CHLORIDE 0.9% 500ML 500 ML IV SCH (23:54)
[2018-06-25] VITALS (14 sets, daily range): BP systolic 92–132; BP diastolic 50–79; PULSE 70–79; TEMP 36.4–36.8; O2SAT 92–100
[2018-06-25 01:44] LABS: PTT PATIENT 62.7 SECONDS (21.0-31.0)
[2018-06-25] MEDS: PIPERACILL/TAZOBAC IV 3.375 GM in DEXTROSE 5% 100ML 100 ML IV SCH ×3 (05:07→22:27)
[2018-06-25] MEDS: ALBUT/IPRATROP 3MG/0.5MG NEB 3 ML VIAL INH SCH ×4 (07:20→19:42)
--- NOTE | 2018-06-25 07:24 | Family Medicine Progress Note ---
Progress Note Date of Service Jun 25, 2018. Subjective Pt evaluation today including: conversation w/ patient, physical exam, chart review, lab review Pain: 0/10 PO Intake: Tolerating Voiding: no voiding problems Subjective: Patient looks significantly better improving clinically, reports SOB resolved. Patient reports no complaints overnight, eating sleeping and voiding appropriately. CC: Short of Breath HPI:Patient is a 72 year old male that presents with a past medical history of hypertension, atrial fibrillation, CKD stage 3, chronic diastolic CHF, HTN, Liver transplant on Prograf and tacrolimus, Prostate cancer with mets to the spine, and depression that presents with worsening shortness of breath since this afternoon. The patient was at home when he began to develop progressive shortness of breath with cough. His cough is productive of white sputum. He denies any fevers, chills, sweats, chest pain, lower extremity pain, or any other acute complaints. The patient does have atrial fibrillation but denies any associated palpitations. 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 Constitutional: No fever, No chills, No sweats, No weight loss ENT: No hearing loss Respiratory: No cough, No sputum, No wheezing, No shortness of breath Cardiovascular: No chest pain Abdomen: No pain, No nausea, No vomiting, No diarrhea, No constipation Musculoskeletal: No joint pain, No calf pain Psychiatric: No depression symptoms Heme: No abnormal bleeding/bruising Endo: No fatigue Skin: No rash, No itch, No new/changing skin lesions All Other Systems: Reviewed and Negative Medications Current Inpatient Medications Medications (Trade) Dose Ordered Sig/Amanda Route Start Time Stop Time Status Last Admin Dose Admin Ondansetron HCl (Zofran Inj) 4 mg Q6H PRN IV 06/24/18 00:45 07/24/18 00:44 Vancomycin HCl (Consult) 1 ea UD PRN N/A 06/24/18 00:45 07/24/18 00:44 Piperacillin Sod/ Tazobactam Sod 3.375 gm/Dextrose 115 ml @ 28.75 mls/ hr Q8 IV 06/24/18 06:00 06/26/18 05:59 06/25/18 14:07 28.75 MLS/HR Miscellaneous Information (Consult) 1 ea UD PRN N/A 06/24/18 00:45 07/24/18 00:44 Albuterol/ Ipratropium (Duoneb) 3 ml QIDR INH 06/24/18 08:00 07/24/18 07:59 06/25/18 15:46 3 ML Alprazolam (Xanax Tab) 1 mg AMHS PO 06/24/18 09:00 07/24/18 08:59 06/25/18 08:48 1 MG Aspirin (Ecotrin Tab) 81 mg DAILY PO 06/24/18 09:00 07/24/18 08:59 06/25/18 08:43 81 MG Dicyclomine HCl (Bentyl Tab) 20 mg BID PRN PO 06/24/18 00:45 07/24/18 00:44 Diltiazem HCl (Cardizem Cd Cap) 300 mg DAILY PO 06/24/18 09:00 07/24/18 08:59 06/25/18 08:44 300 MG Furosemide (Lasix Tab) 40 mg DAILY PO 06/24/18 09:00 07/24/18 08:59 06/25/18 08:43 40 MG Isosorbide Mononitrate (Imdur Ext Rel Tab) 30 mg DAILY PO 06/24/18 09:00 07/24/18 08:59 06/25/18 08:44 30 MG Metoprolol Tartrate (Lopressor Tab) 50 mg BID PO 06/24/18 09:00 07/24/18 08:59 06/25/18 08:44 50 MG Pantoprazole Sodium (Protonix Tab) 40 mg DAILY PO 06/24/18 09:00 07/24/18 08:59 06/25/18 08:44 40 MG Sertraline HCl (Zoloft Tab) 150 mg DAILY PO 06/24/18 09:00 07/24/18 08:59 06/25/18 08:43 150 MG Tamsulosin HCl (Flomax Cap) 0.4 mg QPM PO 06/24/18 21:00 07/24/18 20:59 06/24/18 19:32 0.4 MG Warfarin Sodium (Coumadin Tab) 2.5 mg UD PO 06/24/18 00:45 07/24/18 00:44 UNV Vancomycin HCl 1500 mg/Sodium Chloride 530 ml @ 200 mls/hr Q18H IV 06/24/18 20:00 06/26/18 19:59 06/25/18 14:34 200 MLS/HR Tacrolimus (Prograf Cap) 1 mg QAM PO 06/25/18 09:00 07/24/18 20:59 06/25/18 08:44 1 MG Heparin Sodium (Porcine) (Heparin Sq 5000 Unit/0.5ml) 5,000 unit BID SQ 06/25/18 20:00 07/25/18 20:59 Tacrolimus (Prograf Cap) 1 mg QPM PO 06/25/18 21:00 07/25/18 20:59 Tacrolimus (Prograf Cap) 0.5 mg QPM PO 06/25/18 21:00 07/25/18 20:59 Objective Vital Signs Date Time Temp Pulse Resp B/P (MAP) Pulse Ox O2 Delivery O2 Flow Rate FiO2 06/25/18 18:47 36.4 73 20 126/76 (93) 97 Room Air 06/25/18 18:20 36.8 70 16 98 3.0 06/25/18 16:00 Room Air 06/25/18 15:46 70 16 98 Room Air 06/25/18 15:44 36.8 70 18 121/74 (90) 100 Room Air 06/25/18 14:24 36.5 70 20 119/70 (86) 97 Room Air 06/25/18 12:26 36.6 78 20 92/50 (64) 92 Room Air 06/25/18 11:18 79 16 97 Room Air 06/25/18 08:54 36.4 71 18 128/72 (90) 100 Room Air 06/25/18 08:00 Room Air 06/25/18 07:20 71 16 98 Room Air 06/25/18 04:26 36.4 70 18 124/70 (88) 94 Room Air 06/25/18 00:19 36.4 78 16 117/71 (86) 96 Room Air 06/24/18 22:31 Room Air 06/24/18 19:10 36.5 75 18 118/70 (86) 100 Room Air 06/24/18 19:07 70 16 95 Room Air Physical Exam General Appearance: WD/WN, no apparent distress Eyes: normal inspection, EOMI, sclerae normal ENT: hearing grossly normal Neck: supple, no adenopathy, thyroid normal, no carotid bruits, trachea midline Respiratory/Chest: chest non-tender, lungs clear, normal breath sounds, no respiratory distress, no accessory muscle use Cardiovascular: regular rate, rhythm, no edema, no gallop, no murmur Abdomen: normal bowel sounds, non tender, soft Extremities: normal range of motion, no pedal edema, no calf tenderness, normal capillary refill Neurologic/Psychiatric: alert, normal mood/affect, oriented x 3 Skin: normal color, warm/dry Lymphatic: no adenopathy Laboratory Results Last Resulted 06/25/18 06:48 Last Resulted 06/25/18 06:48 Past 24 Hours Test 06/25/18 06:48 Range/Units Prothromb Time International Ratio 1.1 0.9-1.1 Prothrombin Time 12.0 9.0-12.0 SECONDS Date/Time Source Procedure Growth Status 06/23/18 22:39 Blood Blood Culture - Preliminary NO GROWTH TO DATE. Resulted 06/23/18 22:31 Blood Blood Culture - Preliminary NO GROWTH TO DATE. Resulted Assessment and Plan Patient is a 72 year old male that presents with a past medical history of hypertension, atrial fibrillation, CKD stage 3, chronic diastolic CHF, HTN, Liver transplant on Prograf and tacrolimus, 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 Associated basilar airspace opacities. 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 "pills get stuck in my throat and burn" - F/U speech and swallow - Vancomycin - Zosyn - Blood Cultures x 2 pendign CKD Stage 3 - Cr 1.64 - Daily BMP Chronic Atrial Fibrillation - Continue home Metoprolol and Diltiazem - Continue home Coumadin --> Subtherapeutic INR of 1.1 - Heparin for time being due to INR - No caffiene Liver Transplant - Prograf was not in med rec restarted this afternoon - Broad spectrum antibiotic coverage as above due to immunocompromised state Chronic Diastolic CHF/ HTN/ BPH - Continue home meds Venous Stasis -left foot 2nd digit is violaceous likely 2/2 venous stasis changes Family HX of liver cirrhosis/disease - Pt has liver transplant, of hcc, daughter having liver problems, son 2/2 liver cirrhosis - consider environmental exposures, s. bovis? DVT - Heparin Code Status - Full Resuscitation Dispo: pending speech and swallow evaluation and culture results Home. Consulted social work Resident Physician Supervision Note: I interviewed and examined the patient. Discussed with Dr. Diehl and agree with findings and plan as documented in the note. Any exceptions or clarifications are listed here: None Documented By: Franko Bhatt feeling better overall, almost good. pleased with progress breathing unlabored vitals noted nad no pallor or icterus pneumonia - concern on aspiration - abx, improving, speech eval appreciated. -could also be HCAP but aspiration seems more likely - speech input appreciated med surg today, possibly home 06/26 otherwise as above Continued [facility] stay due to: multiple IV medications needed Discharge planning: home with home health Resident Tracking Resident Involvement: Resident Care Provided Care Provided: Adult Hospital Medicine
[2018-06-25 07:25] LABS: HEMATOCRIT 36.3 % (42-52); HEMOGLOBIN 12.4 g/dL (14.0-18.0); MEAN CELL VOLUME 88.8 fL (80-100); MEAN CORPUSCULAR HEMOGLOBIN 30.3 pg (25-34); MEAN CORPUSCULAR HGB CONC 34.2 g/dl (32-36); MEAN PLATELET VOLUME 10.7 fL (7.4-10.4); PLATELET COUNT 101 K/uL (130-400); RED CELL DISTRIBUTION WIDTH SD 45.6 fL (36.4-46.3); WHITE BLOOD COUNT 7.37 K/uL (4.8-10.8)
[2018-06-25 07:28] LABS: PTT PATIENT 64.1 SECONDS (21.0-31.0)
[2018-06-25 08:02] LABS: CALCIUM 8.5 mg/dl (8.5-10.1); CREATININE 1.62 mg/dl (0.60-1.40); POTASSIUM 3.8 mmol/L (3.5-5.1)
[2018-06-25] MEDS ORDERED: CONSULT PHARMACY STA (08:24)
[2018-06-25] MEDS: FUROSEMIDE 40 MG TAB PO SCH (08:43)
[2018-06-25] MEDS: SERTRALINE HCL 100 MG TAB PO SCH (08:43)
[2018-06-25] MEDS: ASPIRIN 81 MG ECTAB PO SCH (08:43)
[2018-06-25] MEDS: PANTOprazole SOD 40 MG TAB PO SCH (08:44)
[2018-06-25] MEDS: DILTIAZEM HCL 300 MG CAPCR PO SCH (08:44)
[2018-06-25] MEDS: METOPROLOL TARTRATE 50 MG TAB PO SCH ×2 (08:44→21:01)
[2018-06-25] MEDS: ISOSORBIDE MONONITRATE 30 MG TABCR PO SCH (08:44)
[2018-06-25] MEDS: TACROLIMUS 1 MG CAP PO SCH (08:44)
[2018-06-25] MEDS: ALPRAZOLAM 0.5 MG TAB PO SCH ×2 (08:48→21:06)
[2018-06-25 09:14] LABS: INR 1.1 (0.9-1.1)
[2018-06-25] MEDS: VANCOMYCIN IV 1,500 MG in SODIUM CHLORIDE 0.9% 500ML 500 ML IV SCH (14:34)
[2018-06-25] MEDS ORDERED: TACROLIMUS 1 MG CAP PO SCH (21:00)
[2018-06-25] MEDS ORDERED: TACROLIMUS 0.5 MG CAP PO SCH (21:00)
[2018-06-25] MEDS: TAMSULOSIN HCL 0.4 MG CAP PO SCH (21:02)
[2018-06-25] MEDS: HEPARIN SOD 5000 UNIT/0.5 ML CARP SQ SCH (21:06)
[2018-06-26] MEDS: ALBUT/IPRATROP 3MG/0.5MG NEB 3 ML VIAL INH SCH ×3 (06:59→15:02)
[2018-06-26 07:00] VITALS: PULSE 72; O2SAT 93
[2018-06-26 07:20] VITALS: BP 152/91; PULSE 72; TEMP 36.5; O2SAT 93
[2018-06-26] MEDS ORDERED: VANCOMYCIN TROUGH ONE (07:30)
[2018-06-26 08:05] LABS: INR 1.1 (0.9-1.1)
[2018-06-26] MEDS: ALPRAZOLAM 0.5 MG TAB PO SCH (08:16)
[2018-06-26] MEDS: VANCOMYCIN IV 1,500 MG in SODIUM CHLORIDE 0.9% 500ML 500 ML IV SCH (08:16)
[2018-06-26] MEDS: ISOSORBIDE MONONITRATE 30 MG TABCR PO SCH (08:17)
[2018-06-26] MEDS: ASPIRIN 81 MG ECTAB PO SCH (08:17)
[2018-06-26] MEDS: FUROSEMIDE 40 MG TAB PO SCH (08:18)
[2018-06-26] MEDS: TACROLIMUS 1 MG CAP PO SCH (08:18)
[2018-06-26] MEDS: DILTIAZEM HCL 300 MG CAPCR PO SCH (08:19)
[2018-06-26] MEDS: METOPROLOL TARTRATE 50 MG TAB PO SCH (08:19)
[2018-06-26] MEDS: PANTOprazole SOD 40 MG TAB PO SCH (08:20)
[2018-06-26] MEDS: SERTRALINE HCL 100 MG TAB PO SCH (08:20)
[2018-06-26 08:33] LABS: CREATININE 1.63 mg/dl (0.60-1.40)
[2018-06-26] MEDS: HEPARIN SOD 5000 UNIT/0.5 ML CARP SQ SCH (08:42)
--- NOTE | 2018-06-26 09:59 | Pharmacy Progress Note ---
Pharmacy Abx Dose Short Note Date of Service Jun 26, 2018. Assessment & Plan A/P Mr. Colby's vanco trough resulted slightly supra-therapeutic today, 21mcg/ mL (after only 2 maintenance doses). Currently he is receiving 1500mg (13mg/kg) q18. Will extend dosing interval q18--->q24 to lower the trough back within goal range, 15-20mcg/mL. Will continue with 13mg/kg dose due to his habitus being indicative of accumulation. Vanco trough ordered for 06/28/18 @0730. He is immunocompromised 2/2 to prograf. Afebrile, nil leukocytosis. MRSA nares are ordered. Spoke with primary team re: antibx, will touch base 06/27/18 on potential de-escalation if his clinical picture allows for it. Resumed EI Zosyn 3.375g IV q8, appropriate for clinical status and eCrCl>20cc/ min. Pharmacy will continue to follow and will adjust dose/frequency as necessary. Thank you.
[2018-06-26] MEDS: PIPERACILL/TAZOBAC IV 3.375 GM in D5W 100ML IV SCH ×2 (10:02→17:45)
[2018-06-26 11:29] VITALS: PULSE 73; O2SAT 94
[2018-06-26] MEDS ORDERED: WARFARIN SOD 5 MG TAB PO ONE (11:30)
[2018-06-26] MEDS: LACTOBACILLUS ACIDOPHILUS 1 GM PACK PO SCH ×2 (12:00→17:45)
[2018-06-26 15:03] VITALS: PULSE 70; O2SAT 97
[2018-06-26] MEDS ORDERED: NURSING VERBAL MED ORDER ONE (15:15)
[2018-06-26] MEDS ORDERED: AMOX875T PO (15:17)
[2018-06-26 15:24] VITALS: BP 124/77; PULSE 72; TEMP 36.3; O2SAT 98
[2018-06-26] MEDS ORDERED: ALBUT/IPRATROP 3MG/0.5MG NEB 3 ML VIAL INH PRN (15:30)
--- NOTE | 2018-06-26 16:08 | Discharge Instructions ---
Discharge Instructions Date of Service Jun 26, 2018. Admission Reason for Admission: Acute Pnx, Acute Resp Failure W/ Hypoxia, Immunoco Discharge Discharge Diagnosis / Problem: Pneumonia Discharge Goals Goal(s): Learn about illness, Therapeutic intervention, Prevent Disease Progression Activity Recommendations Activity Limitations: per Instructions/Follow-up section . Instructions / Follow-Up Instructions / Follow-Up You have been discharged for Pneumonia. You are being discharged with Augmentin , this is an antibiotic medication to treat bacterial causes of pneumonia. Information and instructions on how to take this medication are provided for you. We recommend you follow up with your primary care provider within seven days of discharge. If you have worsening shortness of breath, contact your primary care provider or, in emergency dial 911. Current Hospital Diet Patient's current hospital diet: AHA Diet (Heart Healthy) Dental soft recommendation by speech pathology small soft pieces of food that are easy to chew. Discharge Diet Recommended Diet: AHA Diet (Heart Healthy) Fluid Restriction: None Diet Texture: Dental Soft (bite-sized) Pending Studies Studies pending at discharge: no Medical Emergencies . Who to Call and When: Medical Emergencies: If at any time you feel your situation is an emergency, please call 911 immediately. . Non-Emergent Contact Non-Emergency issues call your: Primary Care Provider . Past History Medical & Surgical History: (1) Acute pneumonia (2) Acute respiratory failure with hypoxia (3) Immunocompromised patient (4) liver transplant (5) CHF (congestive heart failure) . "Provider Documentation" section prepared by Brody Taveras. . Resident Tracking Resident Involvement: Resident Care Provided Care Provided: Adult Hospital Medicine
--- NOTE | 2018-06-26 17:05 | Discharge Summary ---
Discharge Summary Date of Service Jun 26, 2018. Discharge Summary Admission Date: Jun 24, 2018 at 00:48 Discharge Date: Jun 26, 2018 Discharge Disposition: Home Principal Diagnosis: Pneumonia likely aspiration 2/2 impaired swallowing Problems/Secondary Diagnoses: Acute Hypoxic Respiratory Failure CKD - 3 Chronic Atrial Fibrillation Liver Transplant Chronic Diastolic CHF/ HTN/ BPH Venous Stasis Immunizations: Have You Had Influenza Vaccine: Unknown History of Tetanus Vaccine?: Unknown History of Pneumococcal: Unknown History of Hepatitis B Vaccine: Unknown Medication Reconciliation New Medications: Amoxicillin & Pot Clavulanate (Augmentin 875-125 mg) 1 Tab Tab 1 TAB PO BID for 7 Days, #14 TAB Continued Medications: Alprazolam (Xanax) 1 Mg Tab 1 MG PO AMHS Alprazolam (Xanax) 1 Mg Tab 0.5 TAB PO EVERY AFTERNOON Aspirin (Aspirin Ec) 81 Mg Tab 81 MG PO DAILY Dicyclomine HCl (Dicyclomine HCl) 20 Mg Tab 20 MG PO BID PRN for ABDOMINAL CRAMPING Diltiazem Hcl Coated Beads (Diltiazem Hcl Er) 300 Mg Cap 300 MG PO DAILY Furosemide (Furosemide) 40 Mg Tab 40 MG PO DAILY Isosorbide Mononitrate Ext Rel (Imdur Ext Rel) 30 Mg Tabcr 30 MG PO DAILY Metoprolol Tartrate (Lopressor) (Lopressor) 50 Mg Tab 50 MG PO BID Oxycodone Hcl (Oxycodone Hcl) 15 Mg Tab 15 MG PO BID PRN for Pain Pantoprazole (Pantoprazole Sodium) 40 Mg Tab 40 MG PO DAILY Pramipexole Dihydrochloride (Pramipexole Dihydrochlori) 1 Mg Tab 1 MG PO BID Sertraline HCl (Sertraline HCl) 100 Mg Tab 150 MG PO DAILY Tamsulosin Hcl (Flomax) 0.4 Mg Cap 0.4 MG PO QPM, CAP Warfarin Sod (Jantoven) 2.5 Mg Tab 2.5 MG PO UD, TAB TAKE DIRECTED BY ANTICOAGULATION CLINIC/MD Discharge Exam Patient appears generally well, says he is "feeling back to normal". He is breathing easy and able to converse on room air. Review of Systems: Constitutional: No fever, No chills, No sweats, No weakness, No fatigue Respiratory: No cough, No sputum, No shortness of breath, No dyspnea at rest Cardiovascular: No chest pain, No orthopnea Abdomen: No pain, No nausea, No vomiting, No diarrhea, No constipation Physical Exam: General Appearance: WD/WN, no apparent distress Eyes: normal inspection, EOMI Respiratory/Chest: chest non-tender, no respiratory distress, no accessory muscle use, + crackles (bibasilar), + wheezing Cardiovascular: no gallop, no JVD, no murmur, normal peripheral pulses Abdomen / GI: normal bowel sounds, non tender, soft, no organomegaly Hospital Course Patient is a 72 year old male with a PMH significant for CHF, Liver Transplant with immunosuppression, CKD III, Prostate Cancer with spinal mets, atrial fibrillation being prophylaxed on warfarin and depression, who presented to [facility] due to progressive SOB with a productive cough. He denied any fevers chills, sweats, or chest pain. In the ED he received a CXR that showed bibasilar opacities concerning for pneumonia - aspiration. He was admitted and started on Oxygen to keep saturation above 90% , duonebs treatments every four hours, as well as solumedrol 40 mg every 8 hours. He was also started on Broad spectrum (Vanc and Zosyn) antibiotics due to his immunocompromised status On 06/24 patient started to feel a slightly better. He received a chest CT which showed 1. Bilateral lower lobe bronchial wall thickening with mucous plugging. 2. Associated basilar airspace opacities. 3. Right middle lobe volume loss of bronchial wall thickening 4. 7 mm right upper lobe groundglass pulmonary nodule 5. Multinodular left lobe thyroid goiter with some sternal extension 6. Cardiomegaly and coronary artery calcifications 06/25 Patient continued to improve. Speech pathology consulted for swallowing difficulties and found swallowing deficits likely 2/2 lack of dentition. Recommendations were as follows: 1. Dental soft cut 2. Aspiration precautions: Straws OK, medications whole with water, pt should sit FULLY upright during and for 20-30 minutes following meals. 3. Take small bites/sips, alternate liquids/solids, avoid dry/harder solids 4. Speech will follow in EMR for tolerance, but no direct treatment is planned. 06/26 Patient feels back to his normal self. Patient discharged to home. IV Vanc and Zosyn D/C and switched to oral Augmentin Total Time Spent: Greater than 30 minutes This includes examination of the patient, discharge planning, medication reconciliation, and communication with other providers. Discharge Instructions Please refer to the electronic Patient Visit Report (Discharge Instructions) for additional information. Resident Tracking Resident Involvement: Resident Care Provided Care Provided: Adult Hospital Medicine Reviewed: Pt Seen/Exam by Me History no difficulty breathing. denies anymore choking with food Constitutional: denies: fever Respiratory: negative: short of breath Cardiovascular: denies chest pain General Appearance: no apparent distress Respiratory: lungs clear, no respiratory distress Cardiovascular: regular rate, rhythm Gastrointestinal: soft Neurologic/Psychiatric: alert, oriented x 3 Skin Characteristics: warm/dry Assessment/Plan Resident Physician Supervision Note: I independently interviewed and examined the patient and verified the dorsey history and physical, reviewed labs and image studies, discussed the case with the resident Dr. Taveras and agree with the findings and care plan. Time spent in discharge 35 min
[2018-06-26 17:09] VITALS: BP 124/77; PULSE 72; TEMP 36.3; O2SAT 98
[2018-06-27] MEDS ORDERED: VANCOMYCIN IV 1,500 MG in SODIUM CHLORIDE 0.9% 500ML 500 ML IV SCH (08:00)
[2018-06-28] MEDS ORDERED: VANCOMYCIN TROUGH ONE (07:30)
== END 2018-06-26 18:52 | disposition home or self-care (01) | DRG 177 ==
LOC: EDBD 21:50 → C.EDA 21:51 → C.2E 06-24 00:48 → ENRESERV 06-24 01:35 → C.MS4W 06-25 18:36
PROVIDERS: ADMIT Student in an Organized Health Care Education/Training Program; ATTEND Family Medicine
DX: J69.0 Pneumonitis due to inhalation of food and vomit (principal); J96.01 Acute respiratory failure with hypoxia; I50.32 Chronic diastolic (congestive) heart failure; I13.0 Hypertensive heart and chronic kidney disease with heart failure and stage 1 through stage 4 chronic kidney disease, or unspecified chronic kidney disease; C79.51 Secondary malignant neoplasm of bone; Z94.4 Liver transplant status; Z79.01 Long term (current) use of anticoagulants; N18.3 Chronic kidney disease, stage 3 (moderate); I25.10 Atherosclerotic heart disease of native coronary artery without angina pectoris; I48.91 Unspecified atrial fibrillation; Z79.899 Other long term (current) drug therapy; I87.8 Other specified disorders of veins; C61 Malignant neoplasm of prostate

== ENCOUNTER 2018-07-04 17:28 | Inpatient (IN) | payer OTHER ==
[~2018-07-04] VITALS: Ht 188 cm; Wt 113.8 kg
[~2018-07-04 17:28] MED LIST changes: +ALPR-385 PO; -ALPR0.254 PO; +ALPR1TAB3 PO; +AMOX875T PO; -ASPI81TA28 PO; -CLC100 PO; +DICY1TAB25 PO; -DILT240C57 PO; +DILT300C PO; -FOLI400T41 PO; -ISOS-11 PO; +ISOS30TA35 PO; +LSX40 PO; -MAGN400T24 PO; +METO50TA16 PO; -METO50TA17 PO; -MRLP17 PO; -OXY/15 PO; -PANT1TAB4 PO; +PANT40TA2 PO; +PRAM1TAB10 PO; -TACR1CAP PO; +ZLF/100 PO
[2018-07-04] MEDS ORDERED: SODIUM CHLORIDE 0.9% 1000ML 1,000 ML IV ONE (17:41)
--- NOTE | 2018-07-04 17:52 | EMERGENCY ROOM VISIT NOTE ---
History Report prepared by Liudmila: Mirlande Lindsay Under the Supervision of: Dr. Demarcus Lam D.O. First contact with patient: 17:30 Chief Complaint: HYPOTENSION Stated Complaint: HYPOTENSION, SOB, FALL History of Present Illness The patient is a 72 year old male who presents to the Emergency Room with complaints of a fall beginning this afternoon. He states he was on the commode and could not get up. When he finally got up, he fell into the bathtub so he called the ambulance. He notes he "cannot walk" due to difficulty and he has no power in his legs. He also has some back pain, a wet cough, and SOB (chronic) but denies any abdominal pain. 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 Nursing staff reports he has also had hypotension for about 1 week. 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 He states he has been taking all of his medications. Source of History: patient, nursing staff Onset: this afternoon Position: other (global) Quality: other (fall) Associated Symptoms: + cough (wet), + SOB (chronic), + back pain, + weakness , No abdominal pain Review of Systems See HPI for pertinent positives & negatives. A total of 10 systems reviewed and were otherwise negative. Past Medical & Surgical Medical Problems: (1) Acute pneumonia (2) Acute respiratory failure with hypoxia (3) CAD (coronary artery disease) (4) cancer (5) Cellulitis (6) CHF (congestive heart failure) (7) FTT (failure to thrive) in adult (8) HTN (hypertension) (9) Hypotension (10) Immunocompromised patient Family History Cancer (Lung) Dyslipidemia Hypertension SD Social History Smoking Status: Never Smoker Alcohol Use: heavy Drug Use: none Marital Status: Housing Status: lives with family Occupation Status: unemployed Current/Historical Medications Scheduled Alprazolam (Xanax), 1 MG PO AMHS Alprazolam (Xanax), 0.5 MG PO EVERY AFTERNOON Aspirin (Aspirin Ec), 81 MG PO DAILY Diltiazem Hcl Coated Beads (Diltiazem Hcl Er), 300 MG PO DAILY Furosemide (Furosemide), 40 MG PO DAILY Isosorbide Mononitrate Ext Rel (Imdur Ext Rel), 30 MG PO DAILY Metoprolol Tartrate (Lopressor) (Lopressor), 50 MG PO BID Pantoprazole (Pantoprazole Sodium), 40 MG PO DAILY Pramipexole Dihydrochloride (Pramipexole Dihydrochlori), 1 MG PO AFTERNOON Pramipexole Dihydrochloride (Pramipexole Dihydrochlori), 2 MG PO QPM Sertraline HCl (Sertraline HCl), 150 MG PO DAILY Tamsulosin HCl (Tamsulosin HCl), 0.4 MG PO QPM Warfarin Sod (Jantoven), 2.5 MG PO UD Scheduled PRN Dicyclomine HCl (Dicyclomine HCl), 20 MG PO TID PRN for Abdominal Pain/Cramping Oxycodone Hcl (Oxycodone Hcl), 15 MG PO BID PRN for Pain Allergies Coded Allergies: Acetaminophen (Verified Allergy, Unknown, Unknown., 06/24/18) Source-PT list. Morphine (Verified Adverse Reaction, Unknown, FELT LOOPY, 06/24/18) Source-PT list. Physical Exam Vital Signs Date Time Temp Pulse Resp B/P (MAP) Pulse Ox O2 Delivery O2 Flow Rate FiO2 07/04/18 20:58 75 16 07/04/18 20:31 146/91 07/04/18 20:28 71 25 07/04/18 20:01 70 18 111/58 94 Room Air 07/04/18 20:00 111/58 07/04/18 18:18 83/50 07/04/18 18:16 92/55 07/04/18 18:15 110/63 07/04/18 18:14 69 20 110/63 74 92/55 81 83/50 07/04/18 18:10 70 111/65 94 Room Air 07/04/18 18:00 111/65 07/04/18 17:58 70 29 95 07/04/18 17:39 70 07/04/18 17:36 36.9 72 21 101/59 97 Room Air 07/04/18 17:36 96 Room Air 07/04/18 17:35 101/59 Physical Exam GENERAL: Patient is awake, alert, and in no acute distress. Patient is listless and somewhat ill appearing. EYES: The conjunctivae are clear. The pupils are round and reactive. EARS, NOSE, MOUTH AND THROAT: The nose is without any evidence of any deformity. Mucous membranes are dry. Tongue is midline NECK: The neck is nontender and supple. RESPIRATORY: Lung sounds were diminished throughout. CARDIOVASCULAR: Regular rate and rhythm noted. There no murmurs rubs or gallops normal S1 normal S2 GASTROINTESTINAL: The abdomen is soft. Bowel sounds are present in all quadrants. Abdomen was mildly distended but soft. No guarding or rigidity. Rectal exam revealed light brown stool which as heme positive. MUSCULOSKELETAL/EXTREMITIES: There is no evidence of gross deformity. Full range of motion is noted in the hips and shoulders. SKIN: Pedal edema bilaterally. NEUROLOGIC: Patient is awake alert and oriented x3. Medical Decision & Procedures ER Provider Diagnostic Interpretation: Radiology results as stated below per my review and radiologist interpretation: CHEST ONE VIEW PORTABLE CLINICAL HISTORY: 72 years-old Male presenting with Sepsis. TECHNIQUE: Portable upright AP view of the chest was obtained. COMPARISON: 06/23/2018. FINDINGS: Left subclavian pacer with leads to the coronary sinus, right atrium, and right ventricular apex. Atherosclerosis of aortic arch. Cardiac silhouette moderately enlarged, slightly increased from prior. Pulmonary vascular prominence. Interval decrease in right greater than left bibasilar opacities. No new focal opacity. No large effusion or pneumothorax. Degenerative changes of the glenohumeral joints, right greater than left. IMPRESSION: 1. Cardiomegaly with volume overload. No odilia pulmonary edema. 2. Interval decrease in bibasilar opacities. Residual infection is difficult to exclude. No new focal infiltrate. Electronically signed by: Jimmy Mckenna M.D. 07/04/2018 6:09 PM ABDOMEN AND PELVIS CT WITHOUT CONTRAST CT DOSE: 2555.29 mGy.cm HISTORY: back pain TECHNIQUE: Multiaxial CT images of the abdomen and pelvis were performed without contrast. A dose lowering technique was utilized adhering to the principles of ALARA. COMPARISON STUDY: None. FINDINGS: Bibasilar linear densities favor atelectasis or scarring. Visualized portions of the lower chest demonstrate moderate cardiomegaly and pacer leads. Evaluation of the abdomen and pelvis is suboptimal on this unenhanced exam. A small amount of perihepatic ascites is similar to prior exam. Moderate to marked splenomegaly is unchanged. The appearance of the transplanted liver is unchanged. The sensitivity for detection of hepatic lesions is diminished on this exam but none are identified. There is no evidence for obstruction. 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 No pneumatosis, free air or portal venous gas is present. Right external iliac and bilateral inguinal lymphadenopathy is again noted. This may have slightly progressed in the inguinal stations and slightly improved in the external iliac stations. Fluid-filled colon. No upper abdominal adenopathy is identified. Unenhanced images of the adrenal glands, and pancreas are unremarkable. There is no hydronephrosis. Old, healed bilateral rib fractures. T11-L3 mild compression deformities are again noted. These are considered to be old. No acute fractures. Stable subcentimeter exophytic lesions within the kidneys. IMPRESSION: 1. Waxing and waning appearance of the inguinal and external iliac lymphadenopathy as described above. 2. Small amount of ascites, unchanged. 3. Stable appearance of the transplanted liver. No significant change in splenomegaly and extensive varices. 4. No bowel obstruction. Fluid-filled colon which is nonspecific. This could represent a gastroenteritis. Electronically signed by: Flavio Andrews M.D. 07/04/2018 7:00 PM Laboratory Results Test 07/04/18 18:02 07/04/18 18:12 07/04/18 18:17 Erythrocyte Sedimentation Rate 35 mm/hr (0-14) Phosphorus Level 3.2 mg/dl (2.5-4.9) Total Bilirubin 0.8 mg/dl (0.2-1) Aspartate Amino Transf (AST/SGOT) 26 U/L (15-37) Alanine Aminotransferase (ALT/SGPT) 17 U/L (12-78) Alkaline Phosphatase 65 U/L (45-117) Total Creatine Kinase 266 U/L (39-308) Creatine Kinase MB 4.0 ng/ml (0.5-3.6) Creatine Kinase MB Ratio 1.5 (0-3.0) Troponin I < 0.015 ng/ml (0-0.045) C-Reactive Protein 10.40 mg/dl (0-0.29) Pro-B-Type Natriuretic Peptide 4696 pg/ml (0-900) Total Protein 7.5 gm/dl (6.4-8.2) Albumin 3.3 gm/dl (3.4-5.0) Globulin 4.2 gm/dl (2.5-4.0) Albumin/Globulin Ratio 0.8 (0.9-2) Lipase 81 U/L (73-393) Venous Blood pH 7.40 (7.36-7.41) Venous Blood Partial Pressure CO2 33 mmHg (38.0-50.0) Venous Blood Partial Pressure O2 42 mmHg Venous Blood HCO3 20 mmol/L Venous Blood Oxygen Saturation 75.4 % Venous Blood Base Excess -3.7 mEq/L Bedside Lactic Acid Venous 0.80 mmol/L (0.90-1.70) Laboratory results per my review. Medications Administered Medications (Trade) Dose Ordered Sig/Amanda Route Start Time Stop Time Status Last Admin Dose Admin Sodium Chloride 1,000 ml @ 999 mls/hr Q1H1M ONCE IV 07/04/18 17:41 07/04/18 18:41 DC 07/04/18 18:08 999 MLS/HR ECG Per My Interpretation Indication: weakness Rate (beats per minute): 76 Rhythm: other (dual chambered pacemaker) Findings: other ( [place] beats were appreciated) Comparison ECG Date: 06/23/18 Change: no significant change ED Course 1733: The patient was evaluated in room C7. A complete history and physical examination were performed. 1740: Ordered NSS 1,000 ml @ 999 mls/hr IV 1844: Rectal exam revealed light brown stool which was heme positive. 1928: I checked on the patient at this time. He is resting. 2022: I discussed the patient's case with Dr. Cleveland, [facility] Hospitalist. The patient will be evaluated for further management. Medical Decision Prior records/ancillary studies reviewed and summarized above. Nursing notes reviewed. Differential diagnosis: Etiologies such as metabolic, infection, hypo/hyperglycemia, electrolyte abnormalities, cardiac sources, intracerebral event, toxicologic, neurologic, as well as others were entertained. The patient is a 72-year-old male who presented to the emergency department for an evaluation. The patient had generalized weakness. He was found to have orthostatic hypotension and even suffered a fall. The patient also complained of blood per rectum. On exam he did have heme positive stool but was light brown in nature. The patient was treated with IV fluids. I discussed patient' s laboratory and radiographic studies with him. Because of his underlying condition and his vital signs I discussed his case with the on-call [facility] [place] hospitalist. They have agreed to evaluate the patient in the emergency department for further management and disposition. Medication Reconcilliation Current Medication List: was personally reviewed by me Blood Pressure Screening Patient's blood pressure: Normal blood pressure Blood pressure disposition: Did not require urgent referral Consults Time Called: 1928 Consulting Physician: Dr. Cleveland [facility] Hospitalist Returned Call: 2022 I discussed the patient's case with Dr. Cleveland [facility] Hospitalist. The patient will be evaluated for further management. Impression Primary Impression: Orthostatic hypotension Additional Impressions: GI bleed Diarrhea Generalized weakness Fall Scribe Attestation The scribe's documentation has been prepared under my direction and personally reviewed by me in its entirety. I confirm that the note above accurately reflects all work, treatment, procedures, and medical decision making performed by me. Departure Information Dispostion Being Evaluated By Hospitalist (Dr. Cleveland [facility] Hospitalist) Referrals Milton Dia M.D. (PCP) Patient Instructions My [facility] Problem Qualifiers Additional Impressions: GI bleed GI bleed type/associated pathology: unspecified gastrointestinal hemorrhage type Qualified Codes: K92.2 - Gastrointestinal hemorrhage, unspecified Diarrhea Diarrhea type: unspecified type Qualified Codes: R19.7 - Diarrhea, unspecified Fall Encounter type: initial encounter Qualified Codes: W19.XXXA - Unspecified fall, initial encounter
[2018-07-04] MEDS ORDERED: FLM4 PO (17:57)
[2018-07-04] MEDS ORDERED: PRAM1TAB10 PO (18:01)
--- NOTE | 2018-07-04 18:10 | DIAGNOSTIC IMAGING REPORT ---
CHEST ONE VIEW PORTABLE CLINICAL HISTORY: 72 years-old Male presenting with Sepsis. TECHNIQUE: Portable upright AP view of the chest was obtained. COMPARISON: 06/23/2018. FINDINGS: Left subclavian pacer with leads to the coronary sinus, right atrium, and right ventricular apex. Atherosclerosis of aortic arch. Cardiac silhouette moderately enlarged, slightly increased from prior. Pulmonary vascular prominence. Interval decrease in right greater than left bibasilar opacities. No new focal opacity. No large effusion or pneumothorax. Degenerative changes of the glenohumeral joints, right greater than left. IMPRESSION: 1. Cardiomegaly with volume overload. No odilia pulmonary edema. 2. Interval decrease in bibasilar opacities. Residual infection is difficult to exclude. No new focal infiltrate. Electronically signed by: Jimmy Mckenna M.D. 07/04/2018 6:09 PM Dictated Date/Time: 07/04/2018 6:07 PM
[2018-07-04 18:24] LABS: BASO % 0.2 %; BASO ABS # 0.01 K/uL (0-0.2); EOS % 2.2 %; EOS ABS # 0.14 K/uL (0-0.5); HEMATOCRIT 33.9 % (42-52); HEMOGLOBIN 11.3 g/dL (14.0-18.0); IG# 0.01 K/uL (0.00-0.02); LYMPH % 8.2 %; LYMPH ABS # 0.53 K/uL (1.2-3.4); MEAN CELL VOLUME 88.5 fL (80-100); MEAN CORPUSCULAR HEMOGLOBIN 29.5 pg (25-34); MEAN CORPUSCULAR HGB CONC 33.3 g/dl (32-36); MEAN PLATELET VOLUME 10.8 fL (7.4-10.4); MONO % 8.3 %; MONO ABS # 0.54 K/uL (0.11-0.59); NEUT % 80.9 %; NEUT ABS # 5.26 K/uL (1.4-6.5); PLATELET COUNT 127 K/uL (130-400); RED CELL DISTRIBUTION WIDTH CV 13.9 % (11.5-14.5); RED CELL DISTRIBUTION WIDTH SD 44.9 fL (36.4-46.3); WHITE BLOOD COUNT 6.49 K/uL (4.8-10.8)
[2018-07-04 18:33] LABS: INR 1.1 (0.9-1.1); PTT PATIENT 32.3 SECONDS (21.0-31.0)
[2018-07-04 18:47] LABS: ALBUMIN 3.3 gm/dl (3.4-5.0); ALKALINE PHOSPHATASE 65 U/L (45-117); ALT/SGPT 17 U/L (12-78); AST/SGOT 26 U/L (15-37); BLOOD UREA NITROGEN 31 mg/dl (7-18); CALCIUM 8.2 mg/dl (8.5-10.1); CARBON DIOXIDE 21 mmol/L (21-32); CREATININE 2.56 mg/dl (0.60-1.40); GLUCOSE 105 mg/dl (70-99); LIPASE 81 U/L (73-393); PHOSPHORUS 3.2 mg/dl (2.5-4.9); POTASSIUM 3.4 mmol/L (3.5-5.1); SODIUM 136 mmol/L (136-145); TOTAL PROTEIN 7.5 gm/dl (6.4-8.2)
--- NOTE | 2018-07-04 19:01 | DIAGNOSTIC IMAGING REPORT ---
ABDOMEN AND PELVIS CT WITHOUT CONTRAST CT DOSE: 2555.29 mGy.cm HISTORY: back pain TECHNIQUE: Multiaxial CT images of the abdomen and pelvis were performed without contrast. A dose lowering technique was utilized adhering to the principles of ALARA. COMPARISON STUDY: None. FINDINGS: Bibasilar linear densities favor atelectasis or scarring. Visualized portions of the lower chest demonstrate moderate cardiomegaly and pacer leads. Evaluation of the abdomen and pelvis is suboptimal on this unenhanced exam. A small amount of perihepatic ascites is similar to prior exam. Moderate to marked splenomegaly is unchanged. The appearance of the transplanted liver is unchanged. The sensitivity for detection of hepatic lesions is diminished on this exam but none are identified. There is no evidence for obstruction. 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 No pneumatosis, free air or portal venous gas is present. Right external iliac and bilateral inguinal lymphadenopathy is again noted. This may have slightly progressed in the inguinal stations and slightly improved in the external iliac stations. Fluid-filled colon. No upper abdominal adenopathy is identified. Unenhanced images of the adrenal glands, and pancreas are unremarkable. There is no hydronephrosis. Old, healed bilateral rib fractures. T11-L3 mild compression deformities are again noted. These are considered to be old. No acute fractures. Stable subcentimeter exophytic lesions within the kidneys. IMPRESSION: 1. Waxing and waning appearance of the inguinal and external iliac lymphadenopathy as described above. 2. Small amount of ascites, unchanged. 3. Stable appearance of the transplanted liver. No significant change in splenomegaly and extensive varices. 4. No bowel obstruction. Fluid-filled colon which is nonspecific. This could represent a gastroenteritis. Electronically signed by: Flavio Andrews M.D. 07/04/2018 7:00 PM Dictated Date/Time: 07/04/2018 6:46 PM
[2018-07-04] MEDS ORDERED: OXY/15 PO (20:38)
[2018-07-04] MEDS ORDERED: ASPI81TA28 PO (20:38)
[2018-07-04] MEDS ORDERED: DICYCLOMINE HCL 20 MG TAB PO PRN (21:15)
[2018-07-04] MEDS ORDERED: ONDANSETRON INJ 2 MG/ML 2 ML VIAL IV PRN (21:15)
[2018-07-04] MEDS ORDERED: IPRATROPIUM BROMIDE NEB SOLN 0.02% 2.5 ML VIAL INH PRN (21:30)
[2018-07-04] MEDS ORDERED: LEVALBUTEROL 1.25MG/0.5ML NEB INH PRN (21:30)
[2018-07-04] MEDS ORDERED: LEVOFLOXACIN CONSULT ACTIVE PRN (22:30)
--- NOTE | 2018-07-04 22:31 | History and Physical ---
History & Physical Date & Time of Service: Jul 04, 2018 at 22:31 Chief Complaint: Hypotension, Sob, Fall Primary Care Physician: Milton Dia M.D. History of Present Illness Source: patient, hospital records The patient is a 72-year-old male status post [facility] admission from 06/24-06/26 for pneumonia, who presents to the emergency department with complaint of a fall that began this afternoon. He reports that he was initially on the commode, had difficulty getting up, and when he finally did get up, fell into the bathtub and then called EMS. He reports persistent generalized weakness and lower extremity and difficulty with ambulation since he got home from last hospitalization. His blood pressure has reportedly been lower than usual over the past week. 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 He denies any productive cough, and reports that he feels his breathing is very close to normal. Past Medical/Surgical History Medical Problems: (1) Acute kidney injury (2) Acute pneumonia (3) Acute renal failure (4) Acute respiratory failure with hypoxia (5) Ambulatory dysfunction (6) Arrhythmia as indication for cardiac pacemaker replacement (7) CAD (coronary artery disease) (8) cancer (9) Cellulitis (10) Cellulitis of right leg (11) CHF (congestive heart failure) (12) CHF (congestive heart failure) (13) CKD (chronic kidney disease) (14) Confusion (15) Confusion (16) CVA (cerebral vascular accident) (17) CVA (cerebral vascular accident) (18) Diarrhea (19) FTT (failure to thrive) in adult (20) Healthcare-associated pneumonia (21) HTN (hypertension) (22) Hypotension (23) Hypoxia (24) Immunocompromised patient (25) liver transplant (26) [place] (myocardial infarction) (27) TIA (transient ischemic attack) (28) Tinea corporis (29) Weakness Family History Cancer (Lung) Dyslipidemia Hypertension [place] Social History Smoking Status: Never Smoker Smokeless Tobacco Use: No Alcohol Use: none Drug Use: none Marital Status: Housing status: lives alone Occupational Status: unemployed Immunizations History of Influenza Vaccine: Unknown History of Tetanus Vaccine?: Unknown History of Pneumococcal: Unknown History of Hepatitis B Vaccine: Unknown Allergies Coded Allergies: Acetaminophen (Verified Allergy, Unknown, Unknown., 06/24/18) Source-PT list. Morphine (Verified Adverse Reaction, Unknown, FELT LOOPY, 06/24/18) Source-PT list. Home Medications Scheduled Alprazolam (Xanax), 1 MG PO AMHS Alprazolam (Xanax), 0.5 MG PO EVERY AFTERNOON Aspirin (Aspirin Ec), 81 MG PO DAILY Diltiazem Hcl Coated Beads (Diltiazem Hcl Er), 300 MG PO DAILY Furosemide (Furosemide), 40 MG PO DAILY Isosorbide Mononitrate Ext Rel (Imdur Ext Rel), 30 MG PO DAILY Metoprolol Tartrate (Lopressor) (Lopressor), 50 MG PO BID Pantoprazole (Pantoprazole Sodium), 40 MG PO DAILY Pramipexole Dihydrochloride (Pramipexole Dihydrochlori), 1 MG PO AFTERNOON Pramipexole Dihydrochloride (Pramipexole Dihydrochlori), 2 MG PO QPM Sertraline HCl (Sertraline HCl), 150 MG PO DAILY Tamsulosin HCl (Tamsulosin HCl), 0.4 MG PO QPM Warfarin Sod (Jantoven), 2.5 MG PO UD Scheduled PRN Dicyclomine HCl (Dicyclomine HCl), 20 MG PO TID PRN for Abdominal Pain/Cramping Oxycodone Hcl (Oxycodone Hcl), 15 MG PO BID PRN for Pain Review of Systems The patient denies chest pain, palpitations, shortness of breath, dyspnea on exertion, cough, lower extremity swelling, sore throat, fevers, chills, sweats, nausea, vomiting, abdominal pain, pelvic pain, blood in urine or stool, dysuria, urinary frequency or urgency, headache, loss of consciousness, rash, abnormal bruising or bleeding, focal weakness, numbness or tingling in arms or legs, generalized arthralgias or myalgias, back or neck pain, or night sweats. The review of systems is otherwise negative other than for that already noted above, and at least 10 systems have been reviewed. Physical Exam Vital Signs Date Time Temp Pulse Resp B/P (MAP) Pulse Ox O2 Delivery O2 Flow Rate FiO2 07/04/18 22:26 36.9 70 22 109/63 94 07/04/18 22:18 70 22 109/63 94 Room Air 07/04/18 22:03 71 18 07/04/18 22:01 122/72 07/04/18 21:33 72 23 107/69 07/04/18 21:03 83 20 07/04/18 20:58 75 16 07/04/18 20:31 146/91 07/04/18 20:28 71 25 07/04/18 20:01 70 18 111/58 94 Room Air 07/04/18 20:00 111/58 07/04/18 18:18 83/50 07/04/18 18:16 92/55 07/04/18 18:15 110/63 07/04/18 18:14 69 20 110/63 74 92/55 81 83/50 07/04/18 18:10 70 111/65 94 Room Air 07/04/18 18:00 111/65 07/04/18 17:58 70 29 95 07/04/18 17:39 70 07/04/18 17:36 36.9 72 21 101/59 97 Room Air 07/04/18 17:36 96 Room Air 07/04/18 17:35 101/59 The patient is awake, alert and oriented 3, normocephalic and atraumatic, looks mildly debilitated, lying in bed and in no acute distress. HEENT--PERRL, EOMI, mucous membranes and oropharynx dry. Neck--supple. No JVD. No bruits. Thyroid normal, trachea midline, no adenopathy. Heart--normal S1 and S2. No murmurs, rubs or gallops. Lungs--few crackles at right base, no respiratory distress, no accessory muscle use. Abdomen--normal bowel sounds and soft. Nontender. Nondistended, no hernias or masses, no organomegaly. Extremities--no cyanosis or clubbing. No edema. There are good distal pulses b/ l. Dermatologic--normal skin turgor, normal color, no abnormal lymph nodes, no rash. Neurologic--cranial nerves II through XII grossly intact. Rheumatologic--normal range of motion. Psychiatric--normal affect. Diagnostics Laboratory Results Results Past 24 Hours Test 07/04/18 18:02 07/04/18 18:12 07/04/18 18:17 07/04/18 21:25 Range/Units White Blood Count 6.49 4.8-10.8 K/uL Red Blood Count 3.83 4.7-6.1 M/uL Hemoglobin 11.3 14.0-18.0 g/dL Hematocrit 33.9 42-52 % Mean Corpuscular Volume 88.5 80-100 fL Mean Corpuscular Hemoglobin 29.5 25-34 pg Mean Corpuscular Hemoglobin Concent 33.3 32-36 g/dl Platelet Count 127 130-400 K/uL Mean Platelet Volume 10.8 7.4-10.4 fL Neutrophils (%) (Auto) 80.9 % Lymphocytes (%) (Auto) 8.2 % Monocytes (%) (Auto) 8.3 % Eosinophils (%) (Auto) 2.2 % Basophils (%) (Auto) 0.2 % Neutrophils # (Auto) 5.26 1.4-6.5 K/uL Lymphocytes # (Auto) 0.53 1.2-3.4 K/uL Monocytes # (Auto) 0.54 0.11-0.59 K/uL Eosinophils # (Auto) 0.14 0-0.5 K/uL Basophils # (Auto) 0.01 0-0.2 K/uL RDW Standard Deviation 44.9 36.4-46.3 fL RDW Coefficient of Variation 13.9 11.5-14.5 % Immature Granulocyte % (Auto) 0.2 % Immature Granulocyte # (Auto) 0.01 0.00-0.02 K/uL Erythrocyte Sedimentation Rate 35 0-14 mm/hr Prothrombin Time 11.9 9.0-12.0 SECONDS Prothromb Time International Ratio 1.1 0.9-1.1 Activated Partial Thromboplast Time 32.3 21.0-31.0 SECONDS Partial Thromboplastin Ratio 1.2 Sodium Level 136 136-145 mmol/L Potassium Level 3.4 3.5-5.1 mmol/L Chloride Level 107 98-107 mmol/L Carbon Dioxide Level 21 21-32 mmol/L Anion Gap 8.0 3-11 mmol/L Blood Urea Nitrogen 31 7-18 mg/dl Creatinine 2.56 0.60-1.40 mg/dl Est Creatinine Clear Calc Drug Dose 35.3 ml/min Estimated GFR () 27.5 Estimated GFR (Non- 23.7 BUN/Creatinine Ratio 12.2 10-20 Random Glucose 105 70-99 mg/dl Calcium Level 8.2 8.5-10.1 mg/dl Phosphorus Level 3.2 2.5-4.9 mg/dl Magnesium Level 1.9 1.8-2.4 mg/dl Total Bilirubin 0.8 0.2-1 mg/dl Aspartate Amino Transf (AST/SGOT) 26 15-37 U/L Alanine Aminotransferase (ALT/SGPT) 17 12-78 U/L Alkaline Phosphatase 65 45-117 U/L Total Creatine Kinase 266 39-308 U/L Creatine Kinase MB 4.0 0.5-3.6 ng/ml Creatine Kinase MB Ratio 1.5 0-3.0 Troponin I < 0.015 0-0.045 ng/ml C-Reactive Protein 10.40 0-0.29 mg/dl Pro-B-Type Natriuretic Peptide 4696 0-900 pg/ml Total Protein 7.5 6.4-8.2 gm/dl Albumin 3.3 3.4-5.0 gm/dl Globulin 4.2 2.5-4.0 gm/dl Albumin/Globulin Ratio 0.8 0.9-2 Lipase 81 73-393 U/L Venous Blood pH 7.40 7.36-7.41 Venous Blood Partial Pressure CO2 33 38.0-50.0 mmHg Venous Blood Partial Pressure O2 42 mmHg Venous Blood HCO3 20 mmol/L Venous Blood Oxygen Saturation 75.4 % Venous Blood Base Excess -3.7 mEq/L Bedside Lactic Acid Venous 0.80 0.90-1.70 mmol/L Urine Color DK YELLOW Urine Appearance CLEAR CLEAR Urine pH 5.0 4.5-7.5 Urine Specific [place] 1.020 1.000-1.030 Urine Protein NEG NEG Urine Glucose (UA) NEG NEG Urine Ketones TRACE NEG Urine Occult Blood NEG NEG Urine Nitrite NEG NEG Urine Bilirubin NEG NEG Urine Urobilinogen NEG NEG Urine Leukocyte Esterase NEG NEG Urine WBC (Auto) 1-5 0-5 /hpf Urine RBC (Auto) 5-10 0-4 /hpf Urine Hyaline Casts (Auto) >30 0-5 /lpf Urine Epithelial Cells (Auto) 5-10 0-5 /lpf Urine Bacteria (Auto) NEG NEG Urine Crystals TALC NONE PRSENT Urine Pathogenic Casts 0 /lpf Microbiology Results 07/04/18 Blood Culture, Received Pending 07/04/18 Blood Culture, Received Pending Diagnostic Radiology Patient Name: AGUS MA Unit Number: [id number] Dictated: 07/04/181806 Transcribed: 07/04/181806 PBS Printed Date/Time: [~ rep prt dt]/[~ rep prt tm] [~ rep ct labl] - [~ rep ct ivnm] [facility] [place] [address] Dictated: 07/04/181806 Transcribed: 07/04/181806 PBS Printed Date/Time: [~ rep prt dt]/[~ rep prt tm] [~ rep ct labl] - [~ rep ct ivnm] [~ rep ct add3]] CHEST ONE VIEW PORTABLE CLINICAL HISTORY: 72 years-old Male presenting with Sepsis. TECHNIQUE: Portable upright AP view of the chest was obtained. COMPARISON: 06/23/2018. FINDINGS: Left subclavian pacer with leads to the coronary sinus, right atrium, and right ventricular apex. Atherosclerosis of aortic arch. Cardiac silhouette moderately enlarged, slightly increased from prior. Pulmonary vascular prominence. Interval decrease in right greater than left bibasilar opacities. No new focal opacity. No large effusion or pneumothorax. Degenerative changes of the glenohumeral joints, right greater than left. IMPRESSION: 1. Cardiomegaly with volume overload. No odilia pulmonary edema. 2. Interval decrease in bibasilar opacities. Residual infection is difficult to exclude. No new focal infiltrate. Electronically signed by: Jimmy Mckenna M.D. 07/04/2018 6:09 PM Dictated Date/Time: 07/04/2018 6:07 PM The status of this report is Signed. Draft = Not yet reviewed or approved by Radiologist. Signed = Reviewed and approved by Radiologist. <AttendingPhy></AttendingPhy> <FamilyPhy>Milton Dia M.D.</FamilyPhy> < PrimaryPhy>Milton Dia M.D.</PrimaryPhy> <UnitNumber>[id number]</UnitNumber > <VisitNumber>[id number]</VisitNumber> <PatientName>AGUS MA</ PatientName> <DateOfBirth>1945</DateOfBirth> <Location>[facility]</Location> < ServiceDate>07/04/18</ServiceDate> <MNE>ESINDI</MNE> <OrderingPhy>Demarcus Lam D.O.</OrderingPhy> <OrderingPhyMNE>f rep ord dr anthony</OrderingPhyMNE> <DictatingPhyMNE>f rep dict dr anthony</DictatingPhyMNE> <CCListMNE>f rep ct mne</ CCListMNE> <AdmittingPhyMNE>f pt admit dr anthony</AdmittingPhyMNE> <AttendingPhyMNE >f pt attend dr anthony</AttendingPhyMNE> <ConsultingPhyMNE>f pt consult dr anthony</ConsultingPhyMNE> <FamilyPhyMNE>f pt fam dr anthony</FamilyPhyMNE> <OtherPhyMNE>f pt other dr anthony</OtherPhyMNE> < PrimaryPhyMNE>f pt prim care dr anthony</PrimaryPhyMNE> <ReferringPhyMNE>f pt referring dr anthony</ReferringPhyMNE> Patient Name: AGUS MA Unit Number: [id number] Dictated: 07/04/181845 Transcribed: 07/04/181845 invi Printed Date/Time: [~ rep prt dt]/[~ rep prt tm] [~ rep ct labl] - [~ rep ct ivnm] [facility] [place] [address] Dictated: 07/04/181845 Transcribed: 07/04/181845 [facility] Printed Date/Time: [~ rep prt dt]/[~ rep prt tm] [~ rep ct labl] - [~ rep ct ivnm] ABDOMEN AND PELVIS CT WITHOUT CONTRAST CT DOSE: 2555.29 mGy.cm HISTORY: back pain TECHNIQUE: Multiaxial CT images of the abdomen and pelvis were performed without contrast. A dose lowering technique was utilized adhering to the principles of ALARA. COMPARISON STUDY: None. FINDINGS: Bibasilar linear densities favor atelectasis or scarring. Visualized portions of the lower chest demonstrate moderate cardiomegaly and pacer leads. Evaluation of the abdomen and pelvis is suboptimal on this unenhanced exam. A small amount of perihepatic ascites is similar to prior exam. Moderate to marked splenomegaly is unchanged. The appearance of the transplanted liver is unchanged. The sensitivity for detection of hepatic lesions is diminished on this exam but none are identified. There is no evidence for obstruction. 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 No pneumatosis, free air or portal venous gas is present. Right external iliac and bilateral inguinal lymphadenopathy is again noted. This may have slightly progressed in the inguinal stations and slightly improved in the external iliac stations. Fluid-filled colon. No upper abdominal adenopathy is identified. Unenhanced images of the adrenal glands, and pancreas are unremarkable. There is no hydronephrosis. Old, healed bilateral rib fractures. T11-L3 mild compression deformities are again noted. These are considered to be old. No acute fractures. Stable subcentimeter exophytic lesions within the kidneys. IMPRESSION: 1. Waxing and waning appearance of the inguinal and external iliac lymphadenopathy as described above. 2. Small amount of ascites, unchanged. 3. Stable appearance of the transplanted liver. No significant change in splenomegaly and extensive varices. 4. No bowel obstruction. Fluid-filled colon which is nonspecific. This could represent a gastroenteritis. Electronically signed by: Flavio Andrews M.D. 07/04/2018 7:00 PM Dictated Date/Time: 07/04/2018 6:46 PM The status of this report is Signed. Draft = Not yet reviewed or approved by Radiologist. Signed = Reviewed and approved by Radiologist. <AttendingPhy></AttendingPhy> <FamilyPhy>Milton Dia M.D.</FamilyPhy> < PrimaryPhy>Milton Dia M.D.</PrimaryPhy> <UnitNumber>[id number]</UnitNumber > <VisitNumber>[id number]</VisitNumber> <PatientName>AGUS MA</ PatientName> <DateOfBirth>1945</DateOfBirth> <Location>[facility]</Location> < ServiceDate>07/04/18</ServiceDate> <MNE>ESINDI</MNE> <OrderingPhy>Demarcus Lam D.O.</OrderingPhy> <OrderingPhyMNE>f rep ord dr anthony</OrderingPhyMNE> <DictatingPhyMNE>f rep dict dr anthony</DictatingPhyMNE> <CCListMNE>f rep ct mne</ CCListMNE> <AdmittingPhyMNE>f pt admit dr anthony</AdmittingPhyMNE> <AttendingPhyMNE >f pt attend dr anthony</AttendingPhyMNE> <ConsultingPhyMNE>f pt consult dr anthony</ConsultingPhyMNE> <FamilyPhyMNE>f pt fam dr anthony</FamilyPhyMNE> <OtherPhyMNE>f pt other dr anthony</OtherPhyMNE> < PrimaryPhyMNE>f pt prim care dr anthony</PrimaryPhyMNE> <ReferringPhyMNE>f pt referring dr anthony</ReferringPhyMNE> EKG ZHENRUSLAN AGUS ID:[id number] 04-JUL-2018 17:58:25 [facility] Ventricular-paced rhythm with frequent atrial-paced complexes Abnormal ECG When compared with ECG of 23-JUN-2018 22:08, Vent. rate has increased BY 6 BPM Confirmed by MONICA NICHOLSON ([id number]) on 07/04/2018 10:17:32 PM 25mm/s 10mm/mV 150Hz 8.0 SP2 12SL 241 SHANE: 13 Referred by: Referred Self Confirmed By: MONICA NICHOLSON Vent. rate 76 BPM MA interval * ms QRS duration 188 ms QT/QTc 514/578 ms P-R-T axes * 18 86 1945 (72 yr) Male 114in Room: Loc:15 [employer] Supervisor:ALVARADO MANZANARES Test ind: Impression Assessment and Plan Fall with generalized weakness/multifactorial/small residual right lower lobe pneumonia/generalized debilitation from illness/loose stools with minimal blood streaking leading to mild dehydration-- Stool for C. difficile testing, with empiric treatment with vancomycin orally until testing is has returned. Reported GI bleeding is grossly overestimated. We will treat remaining right lower lobe pneumonia. We will hydrate with IV fluids. We will consult PT/OT, as patient will likely need to go to inpatient rehab due to generalized debilitation and deconditioning. Residual right lower lobe pneumonia-- Placed on ceftriaxone 1 g IV daily, and levofloxacin 500 mg IV every 24 hours. Duonebs every 4 hours while awake and every 2 hours when necessary. Floranex 4 tabs 4 times daily. Status post liver transplant-- Continue tacrolimus per usual outpatient dosing. CAD/hypertension-- Continue isosorbide mononitrate and metoprolol tartrate. Anxiety with depression-- Continue Xanax and sertraline. BPH-- Continue tamsulosin. Restless leg syndrome-- Continue Mirapex Advanced Directives Existing Advance Directive: No Existing Living Will: No Existing Power of Medical Health Researcher: No Resuscitation Status VTE Prophylaxis Will order VTE Prophylaxis: Yes
[2018-07-04 23:25] VITALS: BP 118/74; PULSE 69; TEMP 36.7; O2SAT 93; BMI 34.8
[2018-07-05] VITALS (12 sets, daily range): BP systolic 100–133; BP diastolic 62–81; PULSE 69–80; TEMP 35.8–36.6; O2SAT 91–99; Ht 188 cm; Wt 113.8 kg
[2018-07-05] MEDS: CEFTRIAXONE SOD INJ 1 GM in DEXTROSE 5% ADD-VANTAGE 50ML 50 ML IV SCH ×2 (00:12→23:54)
[2018-07-05] MEDS: VANCOMYCIN HCL 125 MG/2.5ML SOLN PO SCH ×2 (00:13→05:35)
[2018-07-05] MEDS: RASPBERRY SYRUP 5 ML UDP PO SCH ×2 (00:14→05:35)
[2018-07-05] MEDS ORDERED: LEVOFLOXACIN / D5W 750 MG in PREMIXED IN D5W 100 ML IV SCH (01:00)
[2018-07-05] MEDS: IPRATROPIUM BROMIDE NEB SOLN 0.02% 2.5 ML VIAL INH SCH ×4 (01:43→19:17)
[2018-07-05] MEDS: LEVALBUTEROL 1.25MG/0.5ML NEB INH SCH ×4 (01:43→19:18)
[2018-07-05] MEDS ORDERED: LEVALBUTEROL/IPRATROPIUM NEB INH SCH (03:00)
[2018-07-05] MEDS ORDERED: NURSING VERBAL MED ORDER ONE (03:15)
[2018-07-05 06:23] LABS: BASO % 0.2 %; BASO ABS # 0.01 K/uL (0-0.2); EOS % 3.3 %; EOS ABS # 0.21 K/uL (0-0.5); HEMATOCRIT 35.1 % (42-52); HEMOGLOBIN 11.9 g/dL (14.0-18.0); IG# 0.01 K/uL (0.00-0.02); LYMPH % 9.4 %; LYMPH ABS # 0.59 K/uL (1.2-3.4); MEAN CELL VOLUME 88.6 fL (80-100); MEAN CORPUSCULAR HEMOGLOBIN 30.1 pg (25-34); MEAN CORPUSCULAR HGB CONC 33.9 g/dl (32-36); MEAN PLATELET VOLUME 10.8 fL (7.4-10.4); MONO % 7.6 %; MONO ABS # 0.48 K/uL (0.11-0.59); NEUT % 79.3 %; NEUT ABS # 4.98 K/uL (1.4-6.5); PLATELET COUNT 121 K/uL (130-400); RED CELL DISTRIBUTION WIDTH CV 13.8 % (11.5-14.5); WHITE BLOOD COUNT 6.28 K/uL (4.8-10.8)
[2018-07-05 06:38] LABS: INR 1.1 (0.9-1.1); PTT PATIENT 32.9 SECONDS (21.0-31.0)
[2018-07-05 06:57] LABS: CALCIUM 8.1 mg/dl (8.5-10.1); CREATININE 1.76 mg/dl (0.60-1.40); POTASSIUM 3.3 mmol/L (3.5-5.1)
[2018-07-05] MEDS: TACROLIMUS 1 MG CAP PO SCH (08:05)
[2018-07-05] MEDS: METOPROLOL TARTRATE 25 MG TAB PO SCH ×2 (08:06→20:43)
[2018-07-05] MEDS: ISOSORBIDE MONONITRATE 30 MG TABCR PO SCH (08:06)
[2018-07-05] MEDS: ALPRAZOLAM 0.5 MG TAB PO SCH ×3 (08:06→20:43)
[2018-07-05] MEDS: PANTOprazole SOD 40 MG TAB PO SCH (08:07)
[2018-07-05] MEDS: SERTRALINE HCL 100 MG TAB PO SCH (08:07)
[2018-07-05] MEDS: LACTOBACILLUS ACIDOPHILUS (FLORANEX) TAB PO SCH ×3 (08:12→16:49)
--- NOTE | 2018-07-05 09:45 | Family Medicine Progress Note ---
Progress Note Date of Service Jul 05, 2018. Subjective Clovis Colby is a 72 year old man with a past medical history significant for liver transplant, myocardial infarction, TIA, and recent hospital admission for pneumonia. He presented to the [facility] emergency room late last night after feeling very weak and having a fall while trying to stand up from the toilet. He did not hit his head or feel like he is injured from the fall, but feels profoundly weak still. He also has had diarrhea with blood in it. He said this has been occurring since before his previous admission. He believes the weakness is worst in his legs and truly began about a month ago but has gotten worse in the last few weeks. He reports no loss of consciousness at any point, no palpitations, no neurologic symptoms, and no confusion. On presentation to the emergency room he was afebrile slightly hypotensive at 101/59 with no tachycardia or arrhythmia. His lab work was significant for hypokalemia at 3.4 an elevated creatinine at 2.56 and an elevated BNP at 4696. He was given IV fluids in the emergency room and accepted to the floor, his renal status improved overnight with fluid resuscitation and he feels better today but still weak. He says he's not ready to give up and wants to live independently like he does currently. His appetite has been decreased he says in large part due to some serious dental issues affecting all of his top teeth. He supposedly went to a dentist in [place] who told him they all need to be extracted and would cost in the neighborhood of 20,000 dollars which the patient declined. Constitutional: + sweats, + weakness, + fatigue, No see HPI, No fever, No chills, No weight loss ENT: + dental problems, + trouble swallowing, No sore throat Respiratory: No cough, No sputum, No wheezing, No shortness of breath, No dyspnea on exertion, No dyspnea at rest, No hemoptysis Cardiovascular: No chest pain, No orthopnea, No claudication Neurologic: + weakness, + balance problems, No memory loss, No paralysis, No numbness/tingling, No vertigo, No problem reported Medications Current Inpatient Medications Medications (Trade) Dose Ordered Sig/Amanda Route Start Time Stop Time Status Last Admin Dose Admin Alprazolam (Xanax Tab) 0.5 mg DAILY@1400 PO 07/05/18 14:00 08/04/18 13:59 07/05/18 13:28 0.5 MG Alprazolam (Xanax Tab) 1 mg AMHS PO 07/05/18 09:00 08/04/18 08:59 07/05/18 20:43 1 MG Dicyclomine HCl (Bentyl Tab) 20 mg TID PRN PO 07/04/18 21:15 08/03/18 21:14 Isosorbide Mononitrate (Imdur Ext Rel Tab) 30 mg DAILY PO 07/05/18 09:00 08/04/18 08:59 07/05/18 08:06 30 MG Metoprolol Tartrate (Lopressor Tab) 25 mg BID PO 07/05/18 09:00 08/04/18 08:59 07/05/18 20:43 25 MG Pantoprazole Sodium (Protonix Tab) 40 mg DAILY PO 07/05/18 09:00 08/04/18 08:59 07/05/18 08:07 40 MG Sertraline HCl (Zoloft Tab) 150 mg DAILY PO 07/05/18 09:00 08/04/18 08:59 07/05/18 08:07 150 MG Tamsulosin HCl (Flomax Cap) 0.4 mg HS PO 07/05/18 21:00 08/04/18 20:59 07/05/18 21:38 0.4 MG Pramipexole Dihydrochloride (miraPEX TAB) 2 mg HS PO 07/05/18 21:00 08/04/18 20:59 07/05/18 20:43 2 MG Ondansetron HCl (Zofran Inj) 4 mg Q6H PRN IV 07/04/18 21:15 08/03/18 21:14 Ceftriaxone Sodium 1 gm/ Dextrose 50 ml @ 100 mls/hr Q24H IV 07/05/18 00:00 07/12/18 00:00 07/05/18 00:12 100 MLS/HR Levofloxacin 750 mg/Prmx 100 ml @ 100 mls/hr Q48H IV 07/05/18 01:00 07/12/18 00:59 07/05/18 01:10 100 MLS/HR Ipratropium [place] (Atrovent 0.02% 0.5MG/2.5ML Neb) 0.5 mg Q6R INH 07/05/18 03:00 08/04/18 02:59 07/05/18 19:17 0.5 MG Levalbuterol (Xopenex 1.25MG/ 0.5ML Neb) 1.25 mg Q6R INH 07/05/18 03:00 08/04/18 02:59 07/05/18 19:18 1.25 MG Ipratropium [place] (Atrovent 0.02% 0.5MG/2.5ML Neb) 0.5 mg Q2H PRN INH 07/04/18 21:30 08/03/18 21:29 Levalbuterol (Xopenex 1.25MG/ 0.5ML Neb) 1.25 mg Q2H PRN INH 07/04/18 21:30 08/03/18 21:29 Levofloxacin (Consult) 1 ea UD PRN N/A 07/04/18 22:30 08/03/18 22:29 Tacrolimus (Prograf Cap) 1 mg QAM PO 07/05/18 09:00 08/04/18 08:59 07/05/18 08:05 1 MG Tacrolimus (Prograf Cap) 1.5 mg PM PO 07/05/18 21:00 08/04/18 20:59 07/05/18 20:43 1.5 MG Lactobacillus Acidophilus (Floranex Tab) 4 tab TIDM PO 07/05/18 08:00 08/04/18 07:59 07/05/18 16:49 4 TAB Enteral Nutritional Formula (Boost Plus Vanilla) 1 can AC PO 07/05/18 16:30 08/04/18 16:29 07/05/18 16:48 1 CAN Heparin Sodium (Porcine) (Heparin Sq 5000 Unit/0.5ml) 5,000 unit Q12 SQ 07/05/18 21:00 08/04/18 20:59 07/05/18 21:38 5,000 UNIT Objective Vital Signs Date Time Temp Pulse Resp B/P (MAP) Pulse Ox O2 Delivery O2 Flow Rate FiO2 07/05/18 20:39 80 112/68 (83) 07/05/18 19:57 35.8 73 18 100/62 (75) 91 Room Air 07/05/18 19:20 73 16 95 Room Air 07/05/18 16:00 98 Room Air 8/8/18 15:24 35.9 71 18 113/72 (86) 98 Room Air 07/05/18 14:25 70 16 99 Room Air 07/05/18 12:07 36.6 71 18 110/68 (82) 97 Room Air 07/05/18 08:00 Room Air 07/05/18 07:17 70 16 98 Room Air 07/05/18 06:56 36.5 72 20 123/78 (93) 97 Room Air 07/05/18 04:23 36.5 70 20 121/65 (83) 94 Room Air 07/05/18 01:45 69 18 93 Room Air 07/05/18 00:00 Room Air 07/04/18 23:25 36.7 69 20 118/74 93 Room Air Physical Exam General Appearance: + mild distress ENT: hearing grossly normal Respiratory/Chest: chest non-tender, lungs clear, normal breath sounds, no respiratory distress, no accessory muscle use Cardiovascular: no edema, no gallop, no JVD, no murmur Abdomen: normal bowel sounds, non tender, soft, no organomegaly, no pulsatile mass Neurologic/Psychiatric: alert, normal mood/affect, oriented x 3, + motor weakness (generalized weakness, particularly in the lower limbs 3/5 strength 4/ 5 all others) Laboratory Results 07/05/18 05:47 Red Blood Count 3.96, Mean Corpuscular Volume 88.6, Mean Corpuscular Hemoglobin 30.1, Mean Corpuscular Hemoglobin Concent 33.9, Mean Platelet Volume 10.8, Neutrophils (%) (Auto) 79.3, Lymphocytes (%) (Auto) 9.4, Monocytes (%) (Auto) 7.6, Eosinophils (%) (Auto) 3.3, Basophils (%) (Auto) 0.2, Neutrophils # (Auto) 4.98, Lymphocytes # (Auto) 0.59, Monocytes # (Auto) 0.48, Eosinophils # (Auto) 0.21, Basophils # (Auto) 0.01 07/05/18 05:47 Test 07/05/18 05:47 07/05/18 16:47 White Blood Count 6.28 K/uL (4.8-10.8) Red Blood Count 3.96 M/uL (4.7-6.1) Hemoglobin 11.9 g/dL (14.0-18.0) Hematocrit 35.1 % (42-52) Mean Corpuscular Volume 88.6 fL (80-100) Mean Corpuscular Hemoglobin 30.1 pg (25-34) Mean Corpuscular Hemoglobin Concent 33.9 g/dl (32-36) Platelet Count 121 K/uL (130-400) Mean Platelet Volume 10.8 fL (7.4-10.4) Neutrophils (%) (Auto) 79.3 % Lymphocytes (%) (Auto) 9.4 % Monocytes (%) (Auto) 7.6 % Eosinophils (%) (Auto) 3.3 % Basophils (%) (Auto) 0.2 % Neutrophils # (Auto) 4.98 K/uL (1.4-6.5) Lymphocytes # (Auto) 0.59 K/uL (1.2-3.4) Monocytes # (Auto) 0.48 K/uL (0.11-0.59) Eosinophils # (Auto) 0.21 K/uL (0-0.5) Basophils # (Auto) 0.01 K/uL (0-0.2) RDW Standard Deviation 45.0 fL (36.4-46.3) RDW Coefficient of Variation 13.8 % (11.5-14.5) Immature Granulocyte % (Auto) 0.2 % Immature Granulocyte # (Auto) 0.01 K/uL (0.00-0.02) Prothrombin Time 11.8 SECONDS (9.0-12.0) Prothromb Time International Ratio 1.1 (0.9-1.1) Activated Partial Thromboplast Time 32.9 SECONDS (21.0-31.0) Partial Thromboplastin Ratio 1.3 Anion Gap 9.0 mmol/L (3-11) Est Creatinine Clear Calc Drug Dose 49.4 ml/min Estimated GFR () 43.2 Estimated GFR (Non- 37.3 BUN/Creatinine Ratio 15.6 (10-20) Calcium Level 8.1 mg/dl (8.5-10.1) Magnesium Level 1.9 mg/dl (1.8-2.4) Bedside Glucose 123 mg/dl (70-99) Assessment and Plan Fall from weakness -Likely from weakness due to deconditioning 2/2 to his health conditions and recent hospitalization Cardiovascular and neurologic causes seem far less likely -Ordered PT/OT eval -Hopefully D/C to SNF for rehab strength training -Otherwise home with physical therapy GARRY -Improving with fluid resuscitation GI bleed -Likely 2/2 to hemorrhoids, H and H stable -Continue to monitor DVT PPx -Heparin Resident Physician Supervision Note: I interviewed and examined the patient. Discussed with Dr. Taveras and agree with findings and plan as documented in the note. Any exceptions or clarifications are listed here: None Documented By: Franko palm no specific focal sx later notified by [facility] study staff that pt scored high on geriatric depression scale, including suicidality - has thought of multiple plans but has no intent to act at this time vitals noted nad breathing unlabored no pallor or icterus weakness - appearing predominantly deconditioning - acute on chronic -- chronic from comorbidities/probably contributions from depression, questionable spinal stenosis (given predominantly leg weakness - will look for old films); acute from recent pneumonia/hospitalization, GARRY/dehydration, poor PO intake -PT/OT. anticipate rehab GARRY/dehydration - poor PO intake + home diuretic. resolved. poor PO intake - encouraged intake. he notes poor dentition an issue - will ask [facility] to facilitate outpt for this. protein shakes as well depression - supervised setting for now. will continue to follow w pt, will need to discuss antidepressant role in his age/situation - uncertain how long he's been on sertraline/recent dose changes/etc. no need for 302/1:1/etc since not actively suicidal but definitely a big picture issue that will need ongoing monitoring and management. suspect if he starts to physically feel better he will likely have some degree of remission of these sx. will want to inform family if he is allowing as well recent pneumonia - does not appear active. would decrease abx coverage to simply finishing the augmentin he had been Rx'd at discharge last time poor dentition - see above Resident Tracking Resident Involvement: Resident Care Provided Care Provided: Adult Hospital Medicine
[2018-07-05] MEDS: BOOST PLUS VANILLA OR BOOST GLUCOSE CONTROL STRAWBERRY PO SCH (16:48)
[2018-07-05] MEDS: PRAMIPEXOLE DIHYDROCHLORIDE 0.5 MG TAB PO SCH (20:43)
[2018-07-05] MEDS: TACROLIMUS 0.5 MG CAP PO SCH (20:43)
[2018-07-05] MEDS: HEPARIN SOD 5000 UNIT/0.5 ML CARP SQ SCH (21:38)
[2018-07-05] MEDS: TAMSULOSIN HCL 0.4 MG CAP PO SCH (21:38)
[2018-07-06] VITALS (13 sets, daily range): BP systolic 108–143; BP diastolic 68–90; PULSE 70–82; TEMP 36.3–36.5; O2SAT 93–98
[2018-07-06] MEDS: LEVALBUTEROL 1.25MG/0.5ML NEB INH SCH ×4 (01:54→19:21)
[2018-07-06] MEDS: IPRATROPIUM BROMIDE NEB SOLN 0.02% 2.5 ML VIAL INH SCH ×4 (01:54→19:22)
[2018-07-06] MEDS: BOOST PLUS VANILLA OR BOOST GLUCOSE CONTROL STRAWBERRY PO SCH ×3 (06:37→16:52)
[2018-07-06 06:46] LABS: BASO % 0.2 %; BASO ABS # 0.01 K/uL (0-0.2); EOS % 5.3 %; EOS ABS # 0.23 K/uL (0-0.5); HEMATOCRIT 32.6 % (42-52); HEMOGLOBIN 11.1 g/dL (14.0-18.0); LYMPH % 11.7 %; LYMPH ABS # 0.51 K/uL (1.2-3.4); MEAN CELL VOLUME 88.8 fL (80-100); MEAN CORPUSCULAR HEMOGLOBIN 30.2 pg (25-34); MEAN PLATELET VOLUME 10.8 fL (7.4-10.4); MONO % 7.1 %; MONO ABS # 0.31 K/uL (0.11-0.59); NEUT % 75.7 %; PLATELET COUNT 111 K/uL (130-400); RED CELL DISTRIBUTION WIDTH CV 13.9 % (11.5-14.5); WHITE BLOOD COUNT 4.36 K/uL (4.8-10.8)
[2018-07-06 06:52] LABS: INR 1.1 (0.9-1.1); PTT PATIENT 33.9 SECONDS (21.0-31.0)
[2018-07-06 07:19] LABS: CALCIUM 8.1 mg/dl (8.5-10.1); CREATININE 1.38 mg/dl (0.60-1.40); POTASSIUM 3.2 mmol/L (3.5-5.1)
--- NOTE | 2018-07-06 07:30 | Clinical Documentation Query ---
CLINICAL DOCUMENTATION QUERY 72 yo male admitted with weakness, dehydration and GARRY. Patient has diagnosis of depression, malignant neoplasms, and poor PO intake. Patient states appetite has decreased due to dental issues with teeth. In your clinical opinion is this patient being managed for: ( x ) Moderate to severe protein-calorie malnutrition ( ) Not Agree ( ) Other explanation of clinical findings (No explanation is considered a No Response) ( ) Unable to determine ( ) Need to Discuss (Phone CDS or qliq) (No discussion is considered a No Response) The medical record reflects the following clinical findings, treatment, and risk factors. Clinical Indicators: As above Treatment: Dietary consult, boost shakes, soft foods, I&O Risk Factors: Age, weakness, dehydration, cancer, depression Please clarify and document your clinical opinion in the progress notes and discharge summary. Terms such as "probable", "suspected", "likely", "questionable", "possible", or "still to be ruled out" are acceptable. IF IN AGREEMENT, YOU MUST DOCUMENT ABOVE DIAGNOSTIC STATEMENT IN DAILY PROGRESS NOTES AND DISCHARGE SUMMARY. This document is not part of the patient's record. Thank You, Meenu Ramirez RN, MSN [phone]
[2018-07-06] MEDS: HEPARIN SOD 5000 UNIT/0.5 ML CARP SQ SCH ×2 (09:00→20:41)
[2018-07-06] MEDS: PANTOprazole SOD 40 MG TAB PO SCH (09:09)
[2018-07-06] MEDS: METOPROLOL TARTRATE 25 MG TAB PO SCH ×2 (09:09→20:44)
[2018-07-06] MEDS: SERTRALINE HCL 100 MG TAB PO SCH (09:09)
[2018-07-06] MEDS: LACTOBACILLUS ACIDOPHILUS (FLORANEX) TAB PO SCH ×3 (09:10→16:53)
[2018-07-06] MEDS: TACROLIMUS 1 MG CAP PO SCH (09:10)
[2018-07-06] MEDS: ISOSORBIDE MONONITRATE 30 MG TABCR PO SCH (09:11)
[2018-07-06] MEDS: POTASSIUM CHLORIDE 20 MEQ TABCR PO SCH (09:18)
[2018-07-06] MEDS: ALPRAZOLAM 0.5 MG TAB PO SCH ×3 (09:18→20:45)
--- NOTE | 2018-07-06 19:53 | Family Medicine Progress Note ---
Progress Note Date of Service Jul 06, 2018. Subjective Pt evaluation today including: conversation w/ patient, physical exam, chart review, lab review Mr Colby is feeling a bit better today, he participated in physical therapy and it went well for him, however he was unable to finish physical therapy due to abrupt onset of loose stools. From limited evaluation, PT agrees with plan to try and get Mr. Colby placed at a fpc facility to regain strength and functional independence. We also discussed his loose stools which he suggests is a chronic problem when he eats anything with dairy in it. He said he sometimes takes a pill for this. We will try lactaid and see if there's any improvement. Constitutional: + sweats, + weakness, + fatigue, No see HPI, No fever, No chills, No weight loss ENT: + dental problems, + trouble swallowing, No sore throat Respiratory: No cough, No sputum, No wheezing, No shortness of breath, No dyspnea on exertion, No dyspnea at rest, No hemoptysis Cardiovascular: No chest pain, No orthopnea, No claudication Neurologic: + weakness, + balance problems, No memory loss, No paralysis, No numbness/tingling, No vertigo, No problem reported Medications Current Inpatient Medications Medications (Trade) Dose Ordered Sig/Amanda Route Start Time Stop Time Status Last Admin Dose Admin Alprazolam (Xanax Tab) 0.5 mg DAILY@1400 PO 07/05/18 14:00 08/04/18 13:59 07/06/18 14:23 0.5 MG Alprazolam (Xanax Tab) 1 mg AMHS PO 07/05/18 09:00 08/04/18 08:59 07/06/18 09:18 1 MG Dicyclomine HCl (Bentyl Tab) 20 mg TID PRN PO 07/04/18 21:15 08/03/18 21:14 Isosorbide Mononitrate (Imdur Ext Rel Tab) 30 mg DAILY PO 07/05/18 09:00 08/04/18 08:59 07/06/18 09:11 30 MG Metoprolol Tartrate (Lopressor Tab) 25 mg BID PO 07/05/18 09:00 08/04/18 08:59 07/06/18 09:09 25 MG Pantoprazole Sodium (Protonix Tab) 40 mg DAILY PO 07/05/18 09:00 08/04/18 08:59 07/06/18 09:09 40 MG Sertraline HCl (Zoloft Tab) 150 mg DAILY PO 07/05/18 09:00 08/04/18 08:59 07/06/18 09:09 150 MG Tamsulosin HCl (Flomax Cap) 0.4 mg HS PO 07/05/18 21:00 08/04/18 20:59 07/05/18 21:38 0.4 MG Pramipexole Dihydrochloride (miraPEX TAB) 2 mg HS PO 07/05/18 21:00 08/04/18 20:59 07/05/18 20:43 2 MG Ondansetron HCl (Zofran Inj) 4 mg Q6H PRN IV 07/04/18 21:15 08/03/18 21:14 Ipratropium [place] (Atrovent 0.02% 0.5MG/2.5ML Neb) 0.5 mg Q6R INH 07/05/18 03:00 08/04/18 02:59 07/06/18 19:22 0.5 MG Levalbuterol (Xopenex 1.25MG/ 0.5ML Neb) 1.25 mg Q6R INH 07/05/18 03:00 08/04/18 02:59 07/06/18 19:21 1.25 MG Ipratropium [place] (Atrovent 0.02% 0.5MG/2.5ML Neb) 0.5 mg Q2H PRN INH 07/04/18 21:30 08/03/18 21:29 Levalbuterol (Xopenex 1.25MG/ 0.5ML Neb) 1.25 mg Q2H PRN INH 07/04/18 21:30 08/03/18 21:29 Tacrolimus (Prograf Cap) 1 mg QAM PO 07/05/18 09:00 08/04/18 08:59 07/06/18 09:10 1 MG Tacrolimus (Prograf Cap) 1.5 mg PM PO 07/05/18 21:00 08/04/18 20:59 07/05/18 20:43 1.5 MG Lactobacillus Acidophilus (Floranex Tab) 4 tab TIDM PO 07/05/18 08:00 08/04/18 07:59 07/06/18 16:53 4 TAB Enteral Nutritional Formula (Boost Plus Vanilla) 1 can AC PO 07/05/18 16:30 08/04/18 16:29 07/06/18 16:52 1 CAN Heparin Sodium (Porcine) (Heparin Sq 5000 Unit/0.5ml) 5,000 unit Q12 SQ 07/05/18 21:00 08/04/18 20:59 07/05/18 21:38 5,000 UNIT Potassium Chloride (Klor-Con Tab) 20 meq QAM PO 07/06/18 09:00 08/05/18 08:59 07/06/18 09:18 20 MEQ Objective Vital Signs Date Time Temp Pulse Resp B/P (MAP) Pulse Ox O2 Delivery O2 Flow Rate FiO2 07/06/18 19:22 74 16 95 Room Air 07/06/18 16:00 98 Room Air 07/06/18 14:36 72 20 143/90 (107) 98 07/06/18 14:21 70 18 98 Room Air 07/06/18 11:29 36.3 82 20 120/78 (92) 97 07/06/18 08:00 98 Room Air 07/06/18 07:26 36.4 73 16 127/79 (95) 98 07/06/18 07:10 76 18 97 Room Air 07/06/18 03:37 36.5 73 18 124/79 (94) 93 Room Air 07/06/18 01:54 75 18 98 Room Air 07/06/18 00:05 Room Air 07/05/18 23:00 35.9 76 20 133/81 (98) 97 Room Air 07/05/18 20:39 80 112/68 (83) Physical Exam Notes: General Appearance: No apparent distress ENT: hearing grossly normal Respiratory/Chest: chest non-tender, lungs clear, normal breath sounds, no respiratory distress, no accessory muscle use Cardiovascular: no edema, no gallop, no JVD, no murmur Abdomen: normal bowel sounds, non tender, soft, no organomegaly, no pulsatile mass Neurologic/Psychiatric: alert, normal mood/affect, oriented x 3, + motor weakness (generalized weakness, particularly in the lower limbs 3/5 strength 4/ 5 all others) Laboratory Results 07/06/18 06:08 Red Blood Count 3.67, Mean Corpuscular Volume 88.8, Mean Corpuscular Hemoglobin 30.2, Mean Corpuscular Hemoglobin Concent 34.0, Mean Platelet Volume 10.8, Neutrophils (%) (Auto) 75.7, Lymphocytes (%) (Auto) 11.7, Monocytes (%) (Auto) 7.1, Eosinophils (%) (Auto) 5.3, Basophils (%) (Auto) 0.2, Neutrophils # (Auto) 3.30, Lymphocytes # (Auto) 0.51, Monocytes # (Auto) 0.31, Eosinophils # (Auto) 0.23, Basophils # (Auto) 0.01 07/06/18 06:08 Test 07/06/18 06:08 07/06/18 16:36 White Blood Count 4.36 K/uL (4.8-10.8) Red Blood Count 3.67 M/uL (4.7-6.1) Hemoglobin 11.1 g/dL (14.0-18.0) Hematocrit 32.6 % (42-52) Mean Corpuscular Volume 88.8 fL (80-100) Mean Corpuscular Hemoglobin 30.2 pg (25-34) Mean Corpuscular Hemoglobin Concent 34.0 g/dl (32-36) Platelet Count 111 K/uL (130-400) Mean Platelet Volume 10.8 fL (7.4-10.4) Neutrophils (%) (Auto) 75.7 % Lymphocytes (%) (Auto) 11.7 % Monocytes (%) (Auto) 7.1 % Eosinophils (%) (Auto) 5.3 % Basophils (%) (Auto) 0.2 % Neutrophils # (Auto) 3.30 K/uL (1.4-6.5) Lymphocytes # (Auto) 0.51 K/uL (1.2-3.4) Monocytes # (Auto) 0.31 K/uL (0.11-0.59) Eosinophils # (Auto) 0.23 K/uL (0-0.5) Basophils # (Auto) 0.01 K/uL (0-0.2) RDW Standard Deviation 45.0 fL (36.4-46.3) RDW Coefficient of Variation 13.9 % (11.5-14.5) Immature Granulocyte % (Auto) 0.0 % Immature Granulocyte # (Auto) 0.00 K/uL (0.00-0.02) Prothrombin Time 11.4 SECONDS (9.0-12.0) Prothromb Time International Ratio 1.1 (0.9-1.1) Activated Partial Thromboplast Time 33.9 SECONDS (21.0-31.0) Partial Thromboplastin Ratio 1.3 Anion Gap 7.0 mmol/L (3-11) Est Creatinine Clear Calc Drug Dose 63.3 ml/min Estimated GFR () 58.0 Estimated GFR (Non- 50.0 BUN/Creatinine Ratio 15.4 (10-20) Calcium Level 8.1 mg/dl (8.5-10.1) Magnesium Level 1.9 mg/dl (1.8-2.4) Bedside Glucose 112 mg/dl (70-99) Assessment and Plan Fall from weakness -Likely from weakness due to deconditioning 2/2 to his health conditions and recent hospitalization Cardiovascular and neurologic causes seem far less likely -PT reported decrease in "bed mobilities, transfers, strength, balance" and recommended inpatient acute rehab. -Hopefully D/C to SNF for rehab strength training -Otherwise home with physical therapy DVT PPx -Heparin Resident Physician Supervision Note: I interviewed and examined the patient. Discussed with Dr. Taveras and agree with findings and plan as documented in the note. Any exceptions or clarifications are listed here: None Documented By: Franko Bhatt feeling ok no other new copmlaints still just weak vitals noted nad breathing unlabored no pallor or icterus weakness - appearing predominantly deconditioning - acute on chronic -- chronic from comorbidities/probably contributions from depression, questionable spinal stenosis (given predominantly leg weakness - will look for old films); acute from recent pneumonia/hospitalization, GARRY/dehydration, poor PO intake -PT/OT. [facility]/dehydration - poor PO intake + home diuretic. resolved. poor PO intake - dentitiion to be addresssed by dentist at [facility]. boost. encourage intake depression - supervised setting for now. will continue to follow w pt, will need to discuss antidepressant role in his age/situation - uncertain how long he's been on sertraline/recent dose changes/etc. no need for 302/1:1/etc since not actively suicidal but definitely a big picture issue that will need ongoing monitoring and management. suspect if he starts to physically feel better he will likely have some degree of remission of these sx. will want to inform family if he is allowing as well recent pneumonia - does not appear active. would decrease abx coverage to simply finishing the augmentin he had been Rx'd at discharge last time poor dentition - see above Resident Tracking Resident Involvement: Resident Care Provided Care Provided: Adult Hospital Medicine
[2018-07-06] MEDS: TAMSULOSIN HCL 0.4 MG CAP PO SCH (20:44)
[2018-07-06] MEDS: TACROLIMUS 0.5 MG CAP PO SCH (20:44)
[2018-07-06] MEDS: PRAMIPEXOLE DIHYDROCHLORIDE 0.5 MG TAB PO SCH (20:44)
[2018-07-07] VITALS (9 sets, daily range): BP systolic 120–151; BP diastolic 76–92; PULSE 71–88; TEMP 36.3–36.5; O2SAT 92–100
[2018-07-07] MEDS: IPRATROPIUM BROMIDE NEB SOLN 0.02% 2.5 ML VIAL INH SCH ×2 (02:00→07:19)
[2018-07-07] MEDS: LEVALBUTEROL 1.25MG/0.5ML NEB INH SCH ×2 (02:00→07:20)
[2018-07-07 06:00] LABS: BASO % 0.2 %; BASO ABS # 0.01 K/uL (0-0.2); EOS % 8.3 %; EOS ABS # 0.37 K/uL (0-0.5); HEMATOCRIT 32.9 % (42-52); HEMOGLOBIN 11.1 g/dL (14.0-18.0); IG# 0.01 K/uL (0.00-0.02); LYMPH % 10.8 %; LYMPH ABS # 0.48 K/uL (1.2-3.4); MEAN CELL VOLUME 88.9 fL (80-100); MEAN CORPUSCULAR HGB CONC 33.7 g/dl (32-36); MEAN PLATELET VOLUME 10.7 fL (7.4-10.4); MONO % 7.2 %; MONO ABS # 0.32 K/uL (0.11-0.59); NEUT % 73.3 %; NEUT ABS # 3.26 K/uL (1.4-6.5); PLATELET COUNT 117 K/uL (130-400); RED CELL DISTRIBUTION WIDTH CV 14.2 % (11.5-14.5); RED CELL DISTRIBUTION WIDTH SD 45.6 fL (36.4-46.3); WHITE BLOOD COUNT 4.45 K/uL (4.8-10.8)
[2018-07-07 06:07] LABS: PTT PATIENT 30.8 SECONDS (21.0-31.0)
[2018-07-07 06:29] LABS: CALCIUM 8.3 mg/dl (8.5-10.1); CREATININE 1.2 mg/dl (0.60-1.40); POTASSIUM 3.5 mmol/L (3.5-5.1)
[2018-07-07] MEDS: BOOST PLUS VANILLA OR BOOST GLUCOSE CONTROL STRAWBERRY PO SCH ×3 (06:30→16:30)
[2018-07-07] MEDS: LACTOBACILLUS ACIDOPHILUS (FLORANEX) TAB PO SCH ×3 (08:33→17:02)
[2018-07-07] MEDS: SERTRALINE HCL 100 MG TAB PO SCH (08:34)
[2018-07-07] MEDS: PANTOprazole SOD 40 MG TAB PO SCH (08:34)
[2018-07-07] MEDS: METOPROLOL TARTRATE 25 MG TAB PO SCH ×2 (08:34→20:50)
[2018-07-07] MEDS: ALPRAZOLAM 0.5 MG TAB PO SCH ×3 (08:34→20:46)
[2018-07-07] MEDS: ISOSORBIDE MONONITRATE 30 MG TABCR PO SCH (08:35)
[2018-07-07] MEDS: POTASSIUM CHLORIDE 20 MEQ TABCR PO SCH (08:35)
[2018-07-07] MEDS: TACROLIMUS 1 MG CAP PO SCH (08:35)
[2018-07-07] MEDS: HEPARIN SOD 5000 UNIT/0.5 ML CARP SQ SCH ×2 (08:36→21:17)
--- NOTE | 2018-07-07 14:02 | Family Medicine Progress Note ---
Progress Note Date of Service Jul 07, 2018. Subjective Pt evaluation today including: conversation w/ patient Mr Colby is feeling a bit better today, had another episode of loose stools. From limited evaluation, PT and OT both agree with plan to try and get Mr. Colby placed at a alf facility to regain strength and functional independence. Constitutional: + sweats, + weakness, + fatigue, No see HPI, No fever, No chills, No weight loss ENT: + dental problems, + trouble swallowing, No sore throat Respiratory: No cough, No sputum, No wheezing, No shortness of breath, No dyspnea on exertion, No dyspnea at rest, No hemoptysis Cardiovascular: No chest pain, No orthopnea, No claudication Neurologic: + weakness, + balance problems, No memory loss, No paralysis, No numbness/tingling, No vertigo, No problem reported Medications Current Inpatient Medications Medications (Trade) Dose Ordered Sig/Amanda Route Start Time Stop Time Status Last Admin Dose Admin Alprazolam (Xanax Tab) 0.5 mg DAILY@1400 PO 07/05/18 14:00 08/04/18 13:59 07/07/18 13:37 0.5 MG Alprazolam (Xanax Tab) 1 mg AMHS PO 07/05/18 09:00 08/04/18 08:59 07/07/18 08:34 1 MG Dicyclomine HCl (Bentyl Tab) 20 mg TID PRN PO 07/04/18 21:15 08/03/18 21:14 Isosorbide Mononitrate (Imdur Ext Rel Tab) 30 mg DAILY PO 07/05/18 09:00 08/04/18 08:59 07/07/18 08:35 30 MG Metoprolol Tartrate (Lopressor Tab) 25 mg BID PO 07/05/18 09:00 08/04/18 08:59 07/07/18 08:34 25 MG Pantoprazole Sodium (Protonix Tab) 40 mg DAILY PO 07/05/18 09:00 08/04/18 08:59 07/07/18 08:34 40 MG Sertraline HCl (Zoloft Tab) 150 mg DAILY PO 07/05/18 09:00 08/04/18 08:59 07/07/18 08:34 150 MG Tamsulosin HCl (Flomax Cap) 0.4 mg HS PO 07/05/18 21:00 08/04/18 20:59 07/06/18 20:44 0.4 MG Pramipexole Dihydrochloride (miraPEX TAB) 2 mg HS PO 07/05/18 21:00 08/04/18 20:59 07/06/18 20:44 2 MG Ondansetron HCl (Zofran Inj) 4 mg Q6H PRN IV 07/04/18 21:15 08/03/18 21:14 Tacrolimus (Prograf Cap) 1 mg QAM PO 07/05/18 09:00 08/04/18 08:59 07/07/18 08:35 1 MG Tacrolimus (Prograf Cap) 1.5 mg PM PO 07/05/18 21:00 08/04/18 20:59 07/06/18 20:44 1.5 MG Lactobacillus Acidophilus (Floranex Tab) 4 tab TIDM PO 07/05/18 08:00 08/04/18 07:59 07/07/18 13:34 4 TAB Enteral Nutritional Formula (Boost Plus Vanilla) 1 can AC PO 07/05/18 16:30 08/04/18 16:29 07/06/18 16:52 1 CAN Heparin Sodium (Porcine) (Heparin Sq 5000 Unit/0.5ml) 5,000 unit Q12 SQ 07/05/18 21:00 08/04/18 20:59 07/05/18 21:38 5,000 UNIT Potassium Chloride (Klor-Con Tab) 20 meq QAM PO 07/06/18 09:00 08/05/18 08:59 07/07/18 08:35 20 MEQ Objective Physical Exam Notes: General Appearance: No apparent distress ENT: hearing grossly normal Respiratory/Chest: chest non-tender, lungs clear, normal breath sounds, no respiratory distress, no accessory muscle use Cardiovascular: no edema, no gallop, no JVD, no murmur Abdomen: normal bowel sounds, non tender, soft, no organomegaly, no pulsatile mass Neurologic/Psychiatric: alert, normal mood/affect, oriented x 3, + motor weakness (generalized weakness, particularly in the lower limbs 3/5 strength 4/ 5 all others) Laboratory Results 07/07/18 05:35 Red Blood Count 3.70, Mean Corpuscular Volume 88.9, Mean Corpuscular Hemoglobin 30.0, Mean Corpuscular Hemoglobin Concent 33.7, Mean Platelet Volume 10.7, Neutrophils (%) (Auto) 73.3, Lymphocytes (%) (Auto) 10.8, Monocytes (%) (Auto) 7.2, Eosinophils (%) (Auto) 8.3, Basophils (%) (Auto) 0.2, Neutrophils # (Auto) 3.26, Lymphocytes # (Auto) 0.48, Monocytes # (Auto) 0.32, Eosinophils # (Auto) 0.37, Basophils # (Auto) 0.01 07/07/18 05:35 Test 07/07/18 05:35 07/07/18 11:50 White Blood Count 4.45 K/uL (4.8-10.8) Red Blood Count 3.70 M/uL (4.7-6.1) Hemoglobin 11.1 g/dL (14.0-18.0) Hematocrit 32.9 % (42-52) Mean Corpuscular Volume 88.9 fL (80-100) Mean Corpuscular Hemoglobin 30.0 pg (25-34) Mean Corpuscular Hemoglobin Concent 33.7 g/dl (32-36) Platelet Count 117 K/uL (130-400) Mean Platelet Volume 10.7 fL (7.4-10.4) Neutrophils (%) (Auto) 73.3 % Lymphocytes (%) (Auto) 10.8 % Monocytes (%) (Auto) 7.2 % Eosinophils (%) (Auto) 8.3 % Basophils (%) (Auto) 0.2 % Neutrophils # (Auto) 3.26 K/uL (1.4-6.5) Lymphocytes # (Auto) 0.48 K/uL (1.2-3.4) Monocytes # (Auto) 0.32 K/uL (0.11-0.59) Eosinophils # (Auto) 0.37 K/uL (0-0.5) Basophils # (Auto) 0.01 K/uL (0-0.2) RDW Standard Deviation 45.6 fL (36.4-46.3) RDW Coefficient of Variation 14.2 % (11.5-14.5) Immature Granulocyte % (Auto) 0.2 % Immature Granulocyte # (Auto) 0.01 K/uL (0.00-0.02) Prothrombin Time 10.7 SECONDS (9.0-12.0) Prothromb Time International Ratio 1.0 (0.9-1.1) Activated Partial Thromboplast Time 30.8 SECONDS (21.0-31.0) Partial Thromboplastin Ratio 1.2 Anion Gap 5.0 mmol/L (3-11) Est Creatinine Clear Calc Drug Dose 73.0 ml/min Estimated GFR () 68.6 Estimated GFR (Non- 59.2 BUN/Creatinine Ratio 16.6 (10-20) Calcium Level 8.3 mg/dl (8.5-10.1) Magnesium Level 1.8 mg/dl (1.8-2.4) Bedside Glucose 108 mg/dl (70-99) Assessment and Plan Fall from weakness -Likely from weakness due to deconditioning 2/2 to his health conditions and recent hospitalization Cardiovascular and neurologic causes seem less likely -PT OT reported decrease in "bed mobilities, transfers, strength, balance" and recommended inpatient acute rehab. -Unable to secure bed at SNF for rehab strength training until tomorrow -Monitor for one more night. DVT PPx -Heparin Resident Physician Supervision Note: I interviewed and examined the patient. Discussed with Dr. Taveras and agree with findings and plan as documented in the note. Any exceptions or clarifications are listed here: None Documented By: Franko Bhatt sleeping comfortably, no till tuesday vitals noted nad breathing unlabored no pallor or icterus weakness - appearing predominantly deconditioning - acute on chronic -- chronic from comorbidities/probably contributions from depression, questionable spinal stenosis (given predominantly leg weakness - will look for old films); acute from recent pneumonia/hospitalization, GARRY/dehydration, poor PO intake -PT/OT. for [facility] tuesday GARRY/dehydration - poor PO intake + home diuretic. resolved. poor PO intake - dentition to be addressed by dentist at [facility]. boost. encourage intake depression - supervised setting for now. will continue to follow w pt, will need to discuss antidepressant role in his age/situation - uncertain how long he's been on sertraline/recent dose changes/etc. no need for 302/1:1/etc since not actively suicidal but definitely a big picture issue that will need ongoing monitoring and management. suspect if he starts to physically feel better he will likely have some degree of remission of these sx. will want to inform family if he is allowing as well recent pneumonia - does not appear active. would decrease abx coverage to simply finishing the augmentin he had been Rx'd at discharge last time poor dentition - see above Resident Tracking Resident Involvement: Resident Care Provided Care Provided: Adult Hospital Medicine
[2018-07-07] MEDS: TAMSULOSIN HCL 0.4 MG CAP PO SCH (20:46)
[2018-07-07] MEDS: PRAMIPEXOLE DIHYDROCHLORIDE 0.5 MG TAB PO SCH (20:46)
[2018-07-07] MEDS: TACROLIMUS 0.5 MG CAP PO SCH (20:50)
[2018-07-08 04:27] VITALS: BP 149/89; PULSE 76; TEMP 36.3; O2SAT 93
[2018-07-08] MEDS: BOOST PLUS VANILLA OR BOOST GLUCOSE CONTROL STRAWBERRY PO SCH ×2 (06:10→11:00)
[2018-07-08 07:01] VITALS: BP 144/80; PULSE 72; TEMP 36.6; O2SAT 96
[2018-07-08] MEDS: ALPRAZOLAM 0.5 MG TAB PO SCH ×3 (09:25→21:16)
[2018-07-08] MEDS: LACTOBACILLUS ACIDOPHILUS (FLORANEX) TAB PO SCH ×3 (09:26→18:13)
[2018-07-08] MEDS: ISOSORBIDE MONONITRATE 30 MG TABCR PO SCH (09:27)
[2018-07-08] MEDS: METOPROLOL TARTRATE 25 MG TAB PO SCH ×2 (09:27→21:14)
[2018-07-08] MEDS: TACROLIMUS 1 MG CAP PO SCH (09:27)
[2018-07-08] MEDS: POTASSIUM CHLORIDE 20 MEQ TABCR PO SCH (09:27)
[2018-07-08] MEDS: PANTOprazole SOD 40 MG TAB PO SCH (09:28)
[2018-07-08] MEDS: SERTRALINE HCL 100 MG TAB PO SCH (09:28)
[2018-07-08] MEDS: HEPARIN SOD 5000 UNIT/0.5 ML CARP SQ SCH ×2 (10:34→21:14)
[2018-07-08 12:58] VITALS: BP 125/82; PULSE 73; TEMP 36.6; O2SAT 95
[2018-07-08] MEDS: LOPERAMIDE HCL 2 MG CAP PO PRN ×2 (14:45→18:13)
[2018-07-08 15:23] VITALS: BP 152/98; PULSE 69; TEMP 36.3; O2SAT 97
[2018-07-08] MEDS ORDERED: MICONAZOLE NITRATE POWDER 43 GM EXT PRN (15:45)
--- NOTE | 2018-07-08 16:02 | Progress Note ---
Subjective Date of Service: Jul 08, 2018. Subjective Pt evaluation today including: conversation w/ patient, conversation w/ family , physical exam, chart review, lab review, review of studies, conversation w/ [employer] consultant, review of inpatient medication list Pleasant, conversational, generally feeling better, but has 3 time diarrhea, C. difficile negative, reported history of lactase intolerance, talk to cafeteria, patient's boost containing lactase, Problem List Medical Problems: (1) Acute kidney injury Status: Acute (2) Ambulatory dysfunction Status: Acute (3) Cellulitis of right leg Status: Acute (4) CKD (chronic kidney disease) Status: Acute (5) Diarrhea Status: Acute (6) Diarrhea Status: Acute (7) Fall Status: Acute (8) Generalized weakness Status: Acute (9) GI bleed Status: Acute (10) Healthcare-associated pneumonia Status: Acute (11) Hypoxia Status: Acute (12) Orthostatic hypotension Status: Acute (13) Tinea corporis Status: Acute (14) Weakness Status: Acute Review of Systems Constitutional: + weakness, + fatigue, No fever, No chills, No sweats, No weight loss, No problem reported Eyes: No worsening of vision, No eye pain, No redness, No discharge, No diplopia ENT: No hearing loss, No unusual epistaxis, No nasal symptoms, No sore throat, No tinnitus, No dental problems, No trouble swallowing Respiratory: No cough, No sputum, No wheezing, No shortness of breath, No dyspnea on exertion, No dyspnea at rest, No hemoptysis Cardiac: No chest pain, No orthopnea, No PND, No edema, No claudication, No palpitations Abdomen: + diarrhea, No pain, No nausea, No vomiting, No constipation Musculoskeletal: No joint pain, No muscle pain, No swelling, No calf pain Male : No dysuria, No urinary frequency, No incontinence, No nocturia more than once/night, No slowing stream, No hematuria Neurologic: No memory loss, No paralysis, No weakness, No numbness/tingling, No vertigo, No balance problems Psychiatric: No depression symptoms, No anhedonism, No anxiety, No insomnia, No substance abuse Heme: No abnormal bleeding/bruising, No clotting problems, No swollen lymph nodes, No night sweats Endo: No fatigue, No excessive thirst, No excessive urination Skin: No rash, No itch, No new/changing skin lesions, No color change, No bleeding Objective Vital Signs Date Time Temp Pulse Resp B/P (MAP) Pulse Ox O2 Delivery O2 Flow Rate FiO2 07/08/18 15:23 36.3 69 18 152/98 (116) 97 Room Air 07/08/18 12:58 36.6 73 18 125/82 (96) 95 Room Air 07/08/18 08:00 Room Air 07/08/18 07:01 36.6 72 16 144/80 (101) 96 Room Air 07/08/18 04:27 36.3 76 19 149/89 (109) 93 Room Air 07/08/18 00:00 Room Air 07/07/18 20:44 76 151/92 (111) 07/07/18 19:02 36.5 84 20 143/88 (106) 97 Room Air 07/07/18 16:00 98 Room Air Physical Exam General Appearance: WD/WN, no apparent distress Eyes: normal inspection, PERRL, EOMI, sclerae normal ENT: normal ENT inspection, hearing grossly normal, pharynx normal Neck: supple, no adenopathy, thyroid normal, no JVD, no carotid bruits, trachea midline Respiratory/Chest: chest non-tender, lungs clear, normal breath sounds, no respiratory distress, no accessory muscle use, + decreased breath sounds Cardiovascular: regular rate, rhythm, no edema, no gallop, no JVD, no murmur Abdomen: normal bowel sounds, non tender, soft, no organomegaly, no pulsatile mass Extremities: normal range of motion, non-tender, normal inspection, no pedal edema, no calf tenderness, normal capillary refill, pelvis stable Neurologic/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 Admitted on July 04, 2018 because of generalized weakness, possible deconditioning, Recent admission from 06/24-06/26 for pneumonia in this hospital, was discharged home with oral Augmentin, weakness acute on chronic associated with depression, Continue supportive care, PT/OT. for [facility] tuesday GARRY/dehydration, likely from poor PO intake , improving, depression recent pneumonia , will finish up Augmentin Diarrhea, stool C. difficile negative, Lactose intolerance, will stop current boost and will have dietitian to change another one GI and DVT prophylaxis, Tuesday to Continued [facility] stay due to: home environment unsafe for pt Discharge planning: home
[2018-07-08 19:34] VITALS: BP 143/91; PULSE 75; TEMP 36.4; O2SAT 98
[2018-07-08] MEDS: BOOST BREEZE NUTRITION DRINK 1 BOX PO SCH (21:07)
[2018-07-08] MEDS: TACROLIMUS 0.5 MG CAP PO SCH (21:08)
[2018-07-08] MEDS: TAMSULOSIN HCL 0.4 MG CAP PO SCH (21:09)
[2018-07-08] MEDS: PRAMIPEXOLE DIHYDROCHLORIDE 0.5 MG TAB PO SCH (21:09)
[2018-07-08 23:28] VITALS: BP 124/77; PULSE 78; TEMP 36.4; O2SAT 94
[2018-07-09 04:57] VITALS: BP 121/74; PULSE 76; TEMP 36.3; O2SAT 97
[2018-07-09] MEDS: LOPERAMIDE HCL 2 MG CAP PO PRN ×2 (07:03→20:14)
[2018-07-09 07:07] VITALS: BP 145/88; PULSE 76; TEMP 36.3; O2SAT 95
[2018-07-09] MEDS: ISOSORBIDE MONONITRATE 30 MG TABCR PO SCH (07:37)
[2018-07-09] MEDS: LACTOBACILLUS ACIDOPHILUS (FLORANEX) TAB PO SCH ×3 (07:38→16:20)
[2018-07-09] MEDS: POTASSIUM CHLORIDE 20 MEQ TABCR PO SCH (07:38)
[2018-07-09] MEDS: PANTOprazole SOD 40 MG TAB PO SCH (07:38)
[2018-07-09] MEDS: TACROLIMUS 1 MG CAP PO SCH (07:39)
[2018-07-09] MEDS: HEPARIN SOD 5000 UNIT/0.5 ML CARP SQ SCH ×2 (07:44→20:24)
[2018-07-09] MEDS: BOOST BREEZE NUTRITION DRINK 1 BOX PO SCH ×2 (07:47→20:13)
[2018-07-09] MEDS: ALPRAZOLAM 0.5 MG TAB PO SCH ×3 (07:48→20:14)
[2018-07-09 08:31] LABS: BASO % 0.2 %; BASO ABS # 0.01 K/uL (0-0.2); EOS % 8.7 %; EOS ABS # 0.45 K/uL (0-0.5); HEMATOCRIT 36.6 % (42-52); HEMOGLOBIN 12.3 g/dL (14.0-18.0); IG# 0.02 K/uL (0.00-0.02); LYMPH % 12.4 %; LYMPH ABS # 0.64 K/uL (1.2-3.4); MEAN CELL VOLUME 89.5 fL (80-100); MEAN CORPUSCULAR HEMOGLOBIN 30.1 pg (25-34); MEAN CORPUSCULAR HGB CONC 33.6 g/dl (32-36); MONO ABS # 0.31 K/uL (0.11-0.59); NEUT % 72.3 %; NEUT ABS # 3.73 K/uL (1.4-6.5); PLATELET COUNT 143 K/uL (130-400); RED CELL DISTRIBUTION WIDTH CV 14.1 % (11.5-14.5); WHITE BLOOD COUNT 5.16 K/uL (4.8-10.8)
[2018-07-09] MEDS: METOPROLOL TARTRATE 25 MG TAB PO SCH ×2 (08:44→20:15)
[2018-07-09] MEDS: SERTRALINE HCL 100 MG TAB PO SCH (08:44)
[2018-07-09 08:55] LABS: CALCIUM 8.7 mg/dl (8.5-10.1); CREATININE 1.09 mg/dl (0.60-1.40); PHOSPHORUS 3.2 mg/dl (2.5-4.9); POTASSIUM 3.9 mmol/L (3.5-5.1)
--- NOTE | 2018-07-09 09:37 | Progress Note ---
Subjective Date of Service: Jul 09, 2018. Subjective Pt evaluation today including: conversation w/ patient, physical exam, chart review, lab review, review of studies, review of inpatient medication list was having urination problem last night, bladder scan 410ml, PVR >200ml, this am able to urination by self, have 1 BM today Problem List Medical Problems: (1) Acute kidney injury Status: Acute (2) Ambulatory dysfunction Status: Acute (3) Cellulitis of right leg Status: Acute (4) CKD (chronic kidney disease) Status: Acute (5) Diarrhea Status: Acute (6) Diarrhea Status: Acute (7) Fall Status: Acute (8) Generalized weakness Status: Acute (9) GI bleed Status: Acute (10) Healthcare-associated pneumonia Status: Acute (11) Hypoxia Status: Acute (12) Orthostatic hypotension Status: Acute (13) Tinea corporis Status: Acute (14) Weakness Status: Acute Review of Systems Constitutional: + weakness, + fatigue, No fever, No chills, No sweats, No weight loss, No problem reported Eyes: No worsening of vision, No eye pain, No redness, No discharge, No diplopia ENT: No hearing loss, No unusual epistaxis, No nasal symptoms, No sore throat, No tinnitus, No dental problems, No trouble swallowing Respiratory: No cough, No sputum, No wheezing, No shortness of breath, No dyspnea on exertion, No dyspnea at rest, No hemoptysis Cardiac: No chest pain, No orthopnea, No PND, No edema, No claudication, No palpitations Abdomen: No pain, No nausea, No vomiting, No diarrhea, No constipation Musculoskeletal: No joint pain, No muscle pain, No swelling, No calf pain Male : No dysuria, No urinary frequency, No incontinence, No nocturia more than once/night, No slowing stream, No hematuria Neurologic: No memory loss, No paralysis, No weakness, No numbness/tingling, No vertigo, No balance problems Psychiatric: No depression symptoms, No anhedonism, No anxiety, No insomnia, No substance abuse Heme: No abnormal bleeding/bruising, No clotting problems, No swollen lymph nodes, No night sweats Endo: No fatigue, No excessive thirst, No excessive urination Skin: No rash, No itch, No new/changing skin lesions, No color change, No bleeding Objective Vital Signs Date Time Temp Pulse Resp B/P (MAP) Pulse Ox O2 Delivery O2 Flow Rate FiO2 07/09/18 08:00 Room Air 07/09/18 07:07 36.3 76 16 145/88 (107) 95 07/09/18 04:57 36.3 76 19 121/74 (90) 97 Room Air 07/09/18 00:05 Room Air 07/08/18 23:28 36.4 78 19 124/77 (93) 94 Room Air 07/08/18 19:34 36.4 75 20 143/91 (108) 98 Room Air 07/08/18 16:00 Room Air 07/08/18 15:23 36.3 69 18 152/98 (116) 97 Room Air 07/08/18 12:58 36.6 73 18 125/82 (96) 95 Room Air Physical Exam General Appearance: WD/WN, no apparent distress, + obese Eyes: normal inspection, PERRL, EOMI, sclerae normal ENT: normal ENT inspection, hearing grossly normal, pharynx normal Neck: supple, no adenopathy, thyroid normal, no JVD, no carotid bruits, trachea midline Respiratory/Chest: chest non-tender, lungs clear, normal breath sounds, no respiratory distress, no accessory muscle use, + decreased breath sounds Cardiovascular: regular rate, rhythm, no edema, no gallop, no JVD, no murmur Abdomen: normal bowel sounds, non tender, soft, no organomegaly, no pulsatile mass Extremities: normal range of motion, non-tender, normal inspection, no pedal edema, no calf tenderness, normal capillary refill, pelvis stable Neurologic/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: 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 as tested, no motor/sensory deficits, alert, normal mood/affect, oriented x 3 Skin: normal color, warm/dry, no rash Lymphatic: no adenopathy Laboratory Results Last 24 Hours Test 07/08/18 11:20 07/08/18 16:39 07/08/18 20:22 07/09/18 07:35 Bedside Glucose 96 mg/dl 101 mg/dl 92 mg/dl 81 mg/dl Test 07/09/18 07:59 White Blood Count 5.16 K/uL Red Blood Count 4.09 M/uL Hemoglobin 12.3 g/dL Hematocrit 36.6 % Mean Corpuscular Volume 89.5 fL Mean Corpuscular Hemoglobin 30.1 pg Mean Corpuscular Hemoglobin Concent 33.6 g/dl Platelet Count 143 K/uL Mean Platelet Volume 10.0 fL Neutrophils (%) (Auto) 72.3 % Lymphocytes (%) (Auto) 12.4 % Monocytes (%) (Auto) 6.0 % Eosinophils (%) (Auto) 8.7 % Basophils (%) (Auto) 0.2 % Neutrophils # (Auto) 3.73 K/uL Lymphocytes # (Auto) 0.64 K/uL Monocytes # (Auto) 0.31 K/uL Eosinophils # (Auto) 0.45 K/uL Basophils # (Auto) 0.01 K/uL RDW Standard Deviation 46.0 fL RDW Coefficient of Variation 14.1 % Immature Granulocyte % (Auto) 0.4 % Immature Granulocyte # (Auto) 0.02 K/uL Sodium Level 143 mmol/L Potassium Level 3.9 mmol/L Chloride Level 110 mmol/L Carbon Dioxide Level 25 mmol/L Anion Gap 8.0 mmol/L Blood Urea Nitrogen 15 mg/dl Creatinine 1.09 mg/dl Est Creatinine Clear Calc Drug Dose 79.5 ml/min Estimated GFR () 77.1 Estimated GFR (Non- 66.5 BUN/Creatinine Ratio 13.7 Random Glucose 89 mg/dl Calcium Level 8.7 mg/dl Phosphorus Level 3.2 mg/dl Magnesium Level 1.7 mg/dl Assessment and Plan 72-year-old white male. Admitted on July 04, 2018 because of generalized weakness, possible deconditioning, Recent admission from 06/24-06/26 for pneumonia in this hospital, was discharged home with oral Augmentin, has finished up Augmentin Generalized weakness: stable/better acute on chronic depression, resolving, in baseline, GARYR/dehydration, likely from poor PO intake , improving/resolving Diarrhea, stool C. difficile negative, better Lactose intolerance, have had dietitian to changed Boost urinary recension hx of BPH, check PSA, cont Flomax GI and DVT prophylaxis, Tuesday to [facility] Continued [facility] stay due to: home environment unsafe for pt [facility]charge planning: [facility] facility
[2018-07-09 11:28] VITALS: BP 152/93; PULSE 75; TEMP 36.3; O2SAT 97
[2018-07-09] MEDS: MAGNESIUM OXIDE 400 MG TAB PO SCH ×2 (12:32→20:15)
[2018-07-09 15:07] VITALS: BP 143/88; PULSE 70; TEMP 36.3; O2SAT 97
[2018-07-09 19:31] VITALS: BP 154/81; PULSE 86; TEMP 36.5; O2SAT 98
[2018-07-09] MEDS: TACROLIMUS 0.5 MG CAP PO SCH (20:14)
[2018-07-09] MEDS: PRAMIPEXOLE DIHYDROCHLORIDE 0.5 MG TAB PO SCH (20:14)
[2018-07-09] MEDS: TAMSULOSIN HCL 0.4 MG CAP PO SCH (20:15)
[2018-07-09 22:38] VITALS: BP 156/93; PULSE 76; TEMP 36.3; O2SAT 94
[2018-07-10 04:50] VITALS: BP 136/82; PULSE 69; TEMP 36.5; O2SAT 96
--- NOTE | 2018-07-10 06:37 | Clinical Documentation Query ---
CLINICAL DOCUMENTATION QUERY 72 yo male admitted with weakness, dehydration and GARRY. Patient has diagnosis of depression, malignant neoplasms, and poor PO intake. Patient states appetite has decreased due to dental issues with teeth. In your clinical opinion is this patient being managed for: ( x ) possible Moderate to severe protein-calorie malnutrition ( ) Not Agree ( ) Other explanation of clinical findings (No explanation is considered a No Response) ( ) Unable to determine ( ) Need to Discuss (Phone CDS or qliq) (No discussion is considered a No Response) The medical record reflects the following clinical findings, treatment, and risk factors. Clinical Indicators: As above Treatment: Dietary consult, boost shakes, soft foods, I&O Risk Factors: Age, weakness, dehydration, cancer, depression Please clarify and document your clinical opinion in the progress notes and discharge summary. Terms such as "probable", "suspected", "likely", "questionable", "possible", or "still to be ruled out" are acceptable. IF IN AGREEMENT, YOU MUST DOCUMENT ABOVE DIAGNOSTIC STATEMENT IN DAILY PROGRESS NOTES AND DISCHARGE SUMMARY. This document is not part of the patient's record. Thank You, Meenu Ramirez RN, MSN [phone]
[2018-07-10 07:25] VITALS: BP 158/96; PULSE 69; TEMP 36.4; O2SAT 97
[2018-07-10] MEDS: LACTOBACILLUS ACIDOPHILUS (FLORANEX) TAB PO SCH ×2 (08:13→12:34)
[2018-07-10] MEDS: ISOSORBIDE MONONITRATE 30 MG TABCR PO SCH (08:13)
[2018-07-10] MEDS: BOOST BREEZE NUTRITION DRINK 1 BOX PO SCH (08:13)
[2018-07-10] MEDS: METOPROLOL TARTRATE 25 MG TAB PO SCH (08:14)
[2018-07-10] MEDS: SERTRALINE HCL 100 MG TAB PO SCH (08:14)
[2018-07-10] MEDS: PANTOprazole SOD 40 MG TAB PO SCH (08:14)
[2018-07-10] MEDS: TACROLIMUS 1 MG CAP PO SCH (08:15)
[2018-07-10] MEDS: MAGNESIUM OXIDE 400 MG TAB PO SCH (08:15)
[2018-07-10] MEDS: POTASSIUM CHLORIDE 20 MEQ TABCR PO SCH (08:15)
[2018-07-10] MEDS: ALPRAZOLAM 0.5 MG TAB PO SCH ×2 (08:22→13:34)
[2018-07-10] MEDS: HEPARIN SOD 5000 UNIT/0.5 ML CARP SQ SCH (08:22)
[2018-07-10] MEDS ORDERED: IMD2X PO (08:53)
[2018-07-10] MEDS ORDERED: Boost Nutritional Drink PO (08:53)
[2018-07-10] MEDS ORDERED: ALPR-385 PO (08:53)
[2018-07-10] MEDS ORDERED: MGNO400 PO (08:53)
[2018-07-10] MEDS ORDERED: PRG5 PO (08:53)
[2018-07-10] MEDS ORDERED: ALPR1TAB3 PO (08:53)
[2018-07-10] MEDS ORDERED: TACR1CAP3 PO (08:53)
--- NOTE | 2018-07-10 08:53 | Discharge Instructions ---
Discharge Instructions Date of Service Jul 10, 2018. Admission Reason for Admission: Gi Bleed; Hypotension Discharge Discharge Diagnosis / Problem: Generalized weakness, Discharge Goals Goal(s): Decrease discomfort, Improve function, Increase independence, Improve disease control, Improve nutritional status, Learn about illness, Diagnostic testing, Therapeutic intervention, Prevent Disease Progression, Specific goals Activity Recommendations Activity Level: Up Ad Radha . Additional Information Patient informed of condition: Yes Advance Directives: Yes DNR: Yes Level of Care: Skilled Communicable Disease: No Prognosis: Other (guarded) Instructions / Follow-Up Instructions / Follow-Up you have Generalized weakness, which is stable/better you have acute kidney injury is resolved, I restarted Lasix in 20mg po daily, you need to have BMP, mag, check in 3-5 days, and follow up with pcp Lactose intolerance, have had dietitian to changed Boost urinary recension hx of BPH, check PSA, cont Flomax you have occult blood positive in ED, your HB has been stable , you have frequent fall, after talking to your daughter ,will not restart coumadin for stroke prevention with hx of atrial fibrillation referral to GI per pcp for out pt colonoscope if need. CBC need to be checked in 3-5 days, and follow up with pcp - you need to follow up with your primary care physician in 3-5 days - take medication as instructed, never overdose or any misuse, or take with alcohol, because misuse of medicine may cause organ damage or , call me , or your primary care physician if have questions of discharge medicaitons. - call your primary care physician, or go to local emergency room if has any fever/chill, chest pain, shortness of breathing, nausea/vomiting/abdominal pain , facial droop/slurry speech/local weakness, or if has any questions. - fall precaution - diet as instructed Current Hospital Diet Patient's current hospital diet: AHA Diet (Heart Healthy), Low Lactose Diet Discharge Diet Recommended Diet: AHA Diet (Heart Healthy) Pending Studies Studies pending at discharge: no Physician Orders On Transfer POLST Discussion: without POLST completion Medical Emergencies . Who to Call and When: Medical Emergencies: If at any time you feel your situation is an emergency, please call 911 immediately. . Non-Emergent Contact Non-Emergency issues call your: Primary Care Provider . . "Provider Documentation" section prepared by Fernando Beltran. . Core Measure Problem Core Measures: None
[2018-07-10] MEDS ORDERED: LSX40 PO (08:58)
[2018-07-10 11:32] VITALS: BP 134/84; PULSE 73; TEMP 36.3; O2SAT 97
[2018-07-10 13:00] VITALS: BP 134/84; PULSE 73; TEMP 36.3; O2SAT 97
--- NOTE | 2018-07-10 16:26 | Discharge Summary ---
Discharge Summary Date of Service Jul 10, 2018. Discharge Summary Admission Date: Jul 04, 2018 at 21:01 Discharge Date: Jul 10, 2018 Discharge Disposition: [facility] facility Principal Diagnosis: Generalized weakness, which is stable/better Problems/Secondary Diagnoses: acute kidney injury i Lactose intolerance, have had dietitian to changed Boost urinary recension hx of BPH, Possible GI bleeding with heme occult positive stool Immunizations: Have You Had Influenza Vaccine: Unknown History of Tetanus Vaccine?: Unknown History of Pneumococcal: Unknown History of Hepatitis B Vaccine: Unknown Procedures: No Consultations: No Medication Reconciliation New Medications: Loperamide Hcl (Imodium) 2 Mg Cap 2 MG PO Q8 PRN for Diarrhea for 5 Days, #15 CAP Magnesium Oxide (Magnesium-Oxide) 400 Mg Tab 400 MG PO BID for 7 Days, #14 TAB Tacrolimus (Prograf) 0.5 Mg Cap 1.5 MG PO PM for 30 Days, #90 CAP Tacrolimus (Tacrolimus) 1 Mg Cap 1 MG PO QAM for 30 Days, #30 CAP [Boost Nutritional Drink] () 1 BOX LIQD 1 BOX PO BID for 30 Days Changed Medications: Alprazolam (Xanax) 1 Mg Tab 0.5 MG PO AMHS for 3 Days, #6 (Changed from: 1 MG) Furosemide (Furosemide) 40 Mg Tab 20 MG PO DAILY for 14 Days (Changed from: 40 MG) Continued Medications: Alprazolam (Xanax) 1 Mg Tab 0.5 MG PO EVERY AFTERNOON for 3 Days, #3 (This prescription has been renewed) Aspirin (Aspirin Ec) 81 Mg Tab 81 MG PO DAILY Dicyclomine HCl (Dicyclomine HCl) 20 Mg Tab 20 MG PO TID PRN for Abdominal Pain/Cramping Diltiazem Hcl Coated Beads (Diltiazem Hcl Er) 300 Mg Cap 300 MG PO DAILY Isosorbide Mononitrate Ext Rel (Imdur Ext Rel) 30 Mg Tabcr 30 MG PO DAILY Metoprolol Tartrate (Lopressor) (Lopressor) 50 Mg Tab 50 MG PO BID Pantoprazole (Pantoprazole Sodium) 40 Mg Tab 40 MG PO DAILY Pramipexole Dihydrochloride (Pramipexole Dihydrochlori) 1 Mg Tab 1 MG PO AFTERNOON Pramipexole Dihydrochloride (Pramipexole Dihydrochlori) 1 Mg Tab 2 MG PO QPM Sertraline HCl (Sertraline HCl) 100 Mg Tab 150 MG PO DAILY Tamsulosin HCl (Tamsulosin HCl) 0.4 Mg Cap 0.4 MG PO QPM Discontinued Medications: Oxycodone Hcl (Oxycodone Hcl) 15 Mg Tab 15 MG PO BID PRN for Pain Warfarin Sod (Jantoven) 2.5 Mg Tab 2.5 MG PO UD, TAB TAKE DIRECTED BY ANTICOAGULATION CLINIC/MD Discharge Exam Sitting up to a chair, doing well, no complaint, one-time bowel movement today, no diarrhea Review of Systems: Constitutional: + weakness, + fatigue, No fever, No chills, No sweats, No weight loss, No problem reported Eyes: No worsening of vision, No eye pain, No redness, No discharge, No diplopia, No problem reported ENT: No hearing loss, No unusual epistaxis, No nasal symptoms, No sore throat, No tinnitus, No dental problems, No trouble swallowing, No problem reported Cardiovascular: No chest pain, No orthopnea, No PND, No edema, No claudication, No palpitations, No problem reported Abdomen: No pain, No nausea, No vomiting, No diarrhea, No constipation, No GI bleeding, No problem reported Musculoskeletal: No joint pain, No muscle pain, No swelling, No calf pain, No problem reported Genitourinary - Male: No hematuria, No dysuria, No urinary frequency, No urinary urgency, No urinary hesitancy, No urinary retention, No urinary incontinence, No penile discharge, No lesions, No impotence, No problem reported Neurologic: No memory loss, No paralysis, No weakness, No numbness/tingling , No vertigo, No balance problems, No problem reported Psychiatric: No depression symptoms, No anhedonism, No anxiety, No insomnia , No substance abuse, No problem reported Endocrine: No fatigue, No excessive thirst, No excessive urination, No problem reported Physical Exam: General Appearance: WD/WN, + obese Eyes: normal inspection, PERRL ENT: normal ENT inspection, hearing grossly normal Neck: supple, no adenopathy, thyroid normal Respiratory/Chest: chest non-tender, lungs clear, no respiratory distress, no accessory muscle use, + decreased breath sounds Cardiovascular: regular rate, rhythm, no edema, no gallop, no JVD, no murmur Abdomen / GI: normal bowel sounds, non tender, soft, no organomegaly, no pulsatile mass Extremities: normal inspection, no calf tenderness, normal capillary refill Neurologic/Psychiatric: 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 Admitted on July 04, 2018 because of generalized weakness, possible deconditioning, Recent admission from 06/24-06/26 for pneumonia in this hospital, was discharged home with oral Augmentin, has finished up Augmentin Generalized weakness: stable/better acute on chronic depression, resolving, in baseline, GARRY/dehydration, likely from poor PO intake , improving/resolving Diarrhea, stool C. difficile negative, better Lactose intolerance, have had dietitian to changed Boost urinary recension hx of BPH, check PSA, cont Flomax Possible GI bleeding with heme occult positive stool History of A. fib on Coumadin which was discontinued prior to this admission per daughter, I called to patient's daughter, confirming the above information, because of frequent fall, and Hemoccult stool positive, patient started requested no more Coumadin, i agreed, however will continue aspirin, I encouraged daughter to talk to patient's family doctor if have any questions or concerns, she agreed GI and DVT prophylaxis, Tuesday [place] Instructions / Follow-Up you have Generalized weakness, which is stable/better you have acute kidney injury is resolved, I restarted Lasix in 20mg po daily, you need to have BMP, mag, check in 3-5 days, and follow up with pcp Lactose intolerance, have had dietitian to changed Boost urinary recension hx of BPH, check PSA, cont Flomax you have occult blood positive in ED, your HB has been stable , you have frequent fall, after talking to your daughter ,will not restart coumadin for stroke prevention with hx of atrial fibrillation referral to GI per pcp for out pt colonoscope if need. CBC need to be checked in 3-5 days, and follow up with pcp - you need to follow up with your primary care physician in 3-5 days - take medication as instructed, never overdose or any misuse, or take with alcohol, because misuse of medicine may cause organ damage or , call me , or your primary care physician if have questions of discharge medicaitons. - call your primary care physician, or go to local emergency room if has any fever/chill, chest pain, shortness of breathing, nausea/vomiting/abdominal pain , facial droop/slurry speech/local weakness, or if has any questions. - fall precaution - diet as instructed Total Time Spent: Greater than 30 minutes This includes examination of the patient, discharge planning, medication reconciliation, and communication with other providers. Discharge Instructions Please refer to the electronic Patient Visit Report (Discharge Instructions) for additional information. Additional Copies To Milton Dia M.D.
== END 2018-07-10 14:00 | DRG 682 ==
LOC: EDBD 17:28 → C.EDC 17:30 → C.MED 21:01 → ENRESERV 21:25
PROVIDERS: ADMIT Hospitalist; ATTEND Hospitalist
DX: N17.9 Acute kidney failure, unspecified (principal); K92.2 Gastrointestinal hemorrhage, unspecified; J18.9 Pneumonia, unspecified organism; Z94.4 Liver transplant status; I25.10 Atherosclerotic heart disease of native coronary artery without angina pectoris; I10 Essential (primary) hypertension; E78.5 Hyperlipidemia, unspecified; I95.1 Orthostatic hypotension; I50.9 Heart failure, unspecified; Z86.73 Personal history of transient ischemic attack (TIA), and cerebral infarction without residual deficits; Z82.49 Family history of ischemic heart disease and other diseases of the circulatory system; Z88.5 Allergy status to narcotic agent; E86.0 Dehydration; N40.0 Benign prostatic hyperplasia without lower urinary tract symptoms; G25.81 Restless legs syndrome; R33.9 Retention of urine, unspecified; E73.9 Lactose intolerance, unspecified; R19.5 Other fecal abnormalities; F32.9 Major depressive disorder, single episode, unspecified; I48.91 Unspecified atrial fibrillation; Z79.01 Long term (current) use of anticoagulants; B35.4 Tinea corporis

== ENCOUNTER 2020-03-14 08:00 | Observation (INO) ==
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
[~2020-03-14 08:00] MED LIST changes: -ALPR-385 PO; -ALPR1TAB3 PO; -AMOX875T PO; +CEFAZOLIN 2000MG 2,000 MG/15 ML SYR IV SCH; -DICY1TAB25 PO; -DILT300C PO; -ISOS30TA35 PO; +LR 15ML/HR IV SCH; -LSX40 PO; -METO50TA16 PO; -PANT40TA2 PO; -PRAM1TAB10 PO; -TAMS0.4C38 PO; -WARF2.5T8 PO; -ZLF/100 PO
--- NOTE | 2020-03-14 08:30 | History & Physical Bridge Note ---
Date of Service March 14, 2020 History & Physical Bridge Note I have examined the patient, reviewed the History & Physical and in the interval since the performance of the History & Physical I have noted the following changes of clinical significance: no changes noted
[2020-03-14] MEDS ORDERED: MIDAZOLAM HCL 1 MG/ML 2ML VIAL ONE (08:57)
[2020-03-14] MEDS ORDERED: ONDANSETRON INJ 2 MG/ML 2 ML VIAL ONE (08:57)
[2020-03-14] MEDS ORDERED: fentaNYL citrate 100 MCG/2 ML VIAL ONE (08:57)
[2020-03-14] MEDS ORDERED: PROPOFOL IV EMULSION 10 MG/ML 20 ML VIAL IV ONE ×2 (08:59→12:16)
[2020-03-14] MEDS ORDERED: LIDOCAINE HCL 2% 2 ML VIAL/AMP(20MG/ML) INFIL ONE (08:59)
[2020-03-14] MEDS ORDERED: LIDOCAINE HCL 2% (LOCAL) INJ 50 ML VIAL ONE (09:12)
[2020-03-14] MEDS ORDERED: ATROPINE SULFATE 0.1 MG/ML 10ML SYR IV PRN (09:16)
[2020-03-14] MEDS ORDERED: ePHEDrine sulfate 50 MG/ML AMP IV PRN (09:16)
[2020-03-14] MEDS ORDERED: LABETALOL HCL IV 5 MG/ML 20ML IV PRN (09:16)
[2020-03-14] MEDS ORDERED: HYDROmorphone INJ 1 MG/ML SYRINGE IV PRN (09:16)
[2020-03-14] MEDS ORDERED: fentaNYL citrate 100 MCG/2 ML VIAL IV PRN (09:16)
[2020-03-14] MEDS ORDERED: ONDANSETRON INJ 2 MG/ML 2 ML VIAL IV PRN ×2 (09:16→14:54)
[2020-03-14] MEDS ORDERED: PHENYLEPHRINE 100MCG/ML 5ML SYR IV PRN (09:16)
[2020-03-14] MEDS ORDERED: BACITRACIN INJ 50,000 UNIT VIAL ONE (11:13)
[2020-03-14] MEDS ORDERED: LIDOCAINE HCL 1% 20 ML VIAL ONE (12:01)
[2020-03-14] MEDS ORDERED: BUPIVACAINE INJ SCH (12:30)
--- NOTE | 2020-03-14 12:48 | Post Operative Brief Note ---
Immediate Post Op Note v1 Date of Surgery March 14, 2020 Pre & Post Diagnosis Operation Date: 03/14/20 09:20 Pre-Op Diagnosis: Left 2nd Toe Osteomyelitis distal phalanx, second mallet toe, flexor contracture second toe Post-Op Diagnosis: Left 2nd Toe Osteomyelitis distal phalanx, second mallet toe, flexor contracture second toe, fungal nail dystrophy third toe I identified the patient and participated in the time-out.: Yes Procedure Operation Date: 03/14/20 09:20 Actual Procedures p Left Foot Distal 2nd Toe partial amputation, amputation distal phalanx second toe, partial amputation middle phalanx second toe, flexor tenotomy second toe, removal third fungal dystrophic toenail plate (Left) - Sriram Renteria DO Surgeon Sriram Renteria DO Pensionholder Information Clerk Stoney Sidhu PA-C Estimated Blood Loss 1 Findings Consistent with Post-Op Diagnosis Specimens Bone and tissue left second toe Anesthesia Type MAC Regional Complications none Disposition Accompanied Patient To Recovery: No Disposition: Recovery Room
[2020-03-14] MEDS ORDERED: OXYCODONE HCL IR 5 MG TAB (IMMEDIATE RELEASE) PO PRN (12:51)
[2020-03-14] MEDS ORDERED: BUPIVACAINE 0.5 % 5 MG/1 ML PF 10ML VIAL INFIL ONE (13:15)
--- NOTE | 2020-03-14 13:19 | Anesthesiology Progress Note ---
Date of Service March 14, 2020 Anesthesia Post Procedure Vital Signs Vital Signs: Temp Pulse Pulse Resp BP Pulse Ox 03/14/20 12:54 36.6 C 71 17 99/62 L 95 03/14/20 12:45 80 15 98/64 L 95 03/14/20 12:37 36.6 C 71 12 90/57 L 97 03/14/20 08:54 36.7 C 76 18 120/71 99 Transfer of Care Handoff Completed per policy Notes Mental Status: alert / awake / arousable Patient Amnestic to Procedure: Yes Nausea / Vomiting: adequately controlled Pain: adequately controlled Airway Patency, RR, SpO2: stable & adequate BP & HR: stable & adequate Hydration State: stable & adequate Anesthetic Complications: no major complications apparent and Pt Satisfied with anesthetic care
--- NOTE | 2020-03-14 13:48 | Operative Report (OR) ---
DATE OF OPERATION: 03/14/2020 PREOPERATIVE DIAGNOSES: 1. Left second toe osteomyelitis of the distal phalanx. 2. Mallet toe deformity, second toe. 3. Flexor contracture, left second toe. POSTOPERATIVE DIAGNOSES: 1. Left second toe osteomyelitis, distal phalanx. 2. Mallet toe deformity, second toe. 3. Flexor contracture, second toe. 4. Fungal nail dystrophy, third toenail plate. PROCEDURE: 1. Left second toe partial amputation. 2. Amputation distal phalanx. 3. Partial amputation middle phalanx, second toe. 4. Flexor tenotomy of the left second toe. 5. Removal fungal dystrophic third toenail plate. SURGEON: Sriram Renteria DO. REPORTING MANAGER: Stoney Sidhu PA-C, who was present for patient positioning, sterile prep and drape, management of retractors and instruments. He was present through the critical portions of the case including wound closure, application of sterile dressing and transport of the patient to recovery. ANESTHESIA: Monitored anesthesia care regional with an ankle block. SPECIMENS: Bone and tissue left second toe. DRAINS: None. COMPLICATIONS: None. BLOOD LOSS: 1 mL. PERTINENT HISTORY: This is a 74-year-old gentleman with chronic deformity and neuropathic changes of the left second toe with a fixed mallet toe deformity. The patient also noted to have a flexor contracture of the second toe. Osteomyelitis was confirmed with plain radiographs and other advanced imaging. The patient failed conservative management including oral antibiotics, IV antibiotics, modification of weightbearing, use of special shoes and braces. Continued to have symptoms with redness, swelling, erythema, foul smelling discharge and positive radiographic findings. The patient was then scheduled for surgery as indicated. The patient's surgery was deemed as urgent despite the COVID-19 pandemic as a failure of treatment of osteomyelitis with worsening cellulitis and worsening osteomyelitis would spread to the other digits and within the contiguous second toe. Urgent surgery was recommended to avoid further amputation, loss of the foot, sepsis, further amputation including below knee amputation and . The patient was scheduled as indicated. All potential risks, benefits, complications, alternatives, rehab, potential for incomplete relief of symptoms, need for further surgery, DVT, PE, , persistent pain, swelling, scarring, weakness, neurovascular injury, wound complications, need for further amputation was discussed with the patient. The patient decided to proceed with the procedure as indicated. DESCRIPTION OF PROCEDURE: The patient was taken to the operative suite, placed supine on the operating table. After review of consent and identification of proper operative site, the patient was sedated and a sterile ankle block was then performed at the level of the ankle. After this was completed, the left lower extremity was then sterilely prepped in usual fashion, elevated and partially exsanguinated with an Esmarch bandage from the mid foot extending proximally and Esmarch bandage was applied over sterile surgical towel at the level of the ankle. Next, a 15 blade scalpel was used to make a dorsal incision at the distal interphalangeal joint left second toe, full thickness through the skin, extensor tendon and capsule. Next, the midlateral line incisions were made both medially and laterally and extended slightly plantarward to the tip of the second toe. Next, the joint was then opened and the distal phalanx was then shelled out of the soft tissue sleeve sharply with a 15 blade scalpel. Once this was cleared from the soft tissue, the bone and dorsal nail plate was then passed off as specimen. The flexor tendon was then transected with a 15 blade scalpel and tenotomy was then performed releasing the flexor tendon as this was a deforming force for the mallet toe deformity. Next, the collaterals were sacrificed at the distal aspect of the middle phalanx and then a bone biting rongeur was then used to resect a portion of the distal aspect of the middle phalanx of the second toe. Next, the 15 blade scalpel was then used to contour the remaining flap and then copiously irrigated with sterile normal saline with bacitracin. Next, the plantar flap was then closed under low tension to the superior flap with interrupted 4-0 nylon sutures. This produced a stable well aligned second toe. Next, the third toe hypertrophic fungal dystrophy was identified and then the third toenail plate was then undermined with a small hemostat. The toenail plate was then carefully grasped and then rolled from medial to lateral to release the soft tissue connections both in the medial and lateral nail folds and the proximal nail fold. This was then passed off in back table. The germinal matrix of the third toe was then carefully debrided with a 15 blade scalpel and a forcep until healthy tissues appeared. This was then irrigated copiously with sterile normal saline and then a sterile compressive soft dressing was applied to the left foot second toe and third toe and the tourniquet was released. Normal hyperemic response was achieved. The patient was then awakened and taken to recovery in stable condition. I attest to the content of the Intraoperative Record and any orders documented therein. Any exception s are noted below.
[2020-03-14] MEDS ORDERED: NALOXONE HCL 0.4 MG/1 ML VIAL/CARP IV PRN (14:54)
[2020-03-14] MEDS ORDERED: bisacodyL 10 MG SUPP PR PRN (14:54)
[2020-03-14] MEDS: SODIUM CHLORIDE 0.9% 1000ML 1,000 ML IV SCH (16:45)
[2020-03-14] MEDS: PANCREAZE (LIPASE 10,500U) CAP PO SCH (18:55)
[2020-03-14] MEDS: CEFAZOLIN 2000MG 2,000 MG/15 ML SYR IV SCH (19:53)
[2020-03-14] MEDS: TACROLIMUS 0.5 MG CAP PO SCH (20:07)
[2020-03-14] MEDS: TAMSULOSIN HCL 0.4 MG CAP PO SCH (20:07)
[2020-03-14] MEDS: MAGNESIUM OXIDE 400 MG TAB PO SCH (20:08)
[2020-03-14] MEDS: PRAMIPEXOLE DIHYDROCHLO 0.5 MG TAB PO SCH (20:08)
[2020-03-14] MEDS: METOPROLOL TARTRATE 25 MG TAB PO SCH (20:08)
[2020-03-14] MEDS: LOPERAMIDE HCL 2 MG CAP PO SCH (20:08)
[2020-03-14] MEDS: ALPRAZolam 0.5 MG TABLET PO SCH (20:09)
[2020-03-15] MEDS: SODIUM CHLORIDE 0.9% 1000ML 1,000 ML IV SCH (02:56)
[2020-03-15] MEDS: CEFAZOLIN 2000MG 2,000 MG/15 ML SYR IV SCH (04:44)
[2020-03-15] MEDS: ALBUTEROL 0.083% NEBU SOLN 3 ML VIAL INH SCH (07:02)
[2020-03-15] MEDS: SERTRALINE HCL 100 MG TABLET PO SCH (08:13)
[2020-03-15] MEDS: FLUTICASONE/VILANTEROL 100/25MCG 14 PUFFS/INHALER INH SCH (08:13)
[2020-03-15] MEDS: TACROLIMUS 1 MG CAP PO SCH (08:14)
[2020-03-15] MEDS: dilTIAZem ER 120 MG CAPCR PO SCH (08:14)
[2020-03-15] MEDS: FUROSEMIDE 40 MG TAB PO SCH (08:14)
[2020-03-15] MEDS: MULTIVITAMIN TAB PO SCH (08:14)
[2020-03-15] MEDS: FOLIC ACID 400 MCG TAB PO SCH (08:14)
[2020-03-15] MEDS: PANCREAZE (LIPASE 10,500U) CAP PO SCH ×3 (08:14→16:50)
[2020-03-15] MEDS: METOPROLOL TARTRATE 25 MG TAB PO SCH ×2 (08:14→20:40)
[2020-03-15] MEDS: ISOSORBIDE MONO EXTENDED REL 30 MG TABCR PO SCH (08:14)
[2020-03-15] MEDS: LOPERAMIDE HCL 2 MG CAP PO SCH ×2 (08:14→20:40)
[2020-03-15] MEDS: FERROUS SULFATE 325 MG TAB PO SCH (08:15)
[2020-03-15] MEDS: ALPRAZolam 0.5 MG TABLET PO SCH ×3 (08:19→20:51)
[2020-03-15] MEDS ORDERED: ALBUTEROL SULFATE 0.63 MG INH SCH (09:00)
[2020-03-15] MEDS ORDERED: NON-FORMULARY MEDICATION (Lutein 20 MG) PO SCH (09:00)
--- NOTE | 2020-03-15 09:25 | Orthopedic Progress Note ---
Date of Service March 15, 2020 Assessment & Plan (1) Acute osteomyelitis of toe of left foot: 74 yo male stable POD #1 s/p right foot TMA 1. Med management 2. DVT prophylaxis- SCDs 3. PT/OT 4. D/C planning- dressing change tomorrow Pt. seen and examined, agree with above. Admission and Anticipated Discharge Date Admission Date: March 14, 2020 Subjective Pt without complaints, denies pain, "when am I going home" Physical Exam Physical Exam: Surgical dressing in place, will change tomorrow Results & Data ([facility]) Vital Signs (Past 12 Hours) Vital Signs Temp Pulse Resp BP Pulse Ox 03/15/20 07:46 36.4 C L 70 18 117/69 97 03/15/20 07:03 77 14 96 03/15/20 03:35 36.3 C L 70 15 118/75 96 03/14/20 23:16 36.7 C 70 16 111/69 97
--- NOTE | 2020-03-15 09:25 | Anesthesiology Progress Note ---
Date of Service March 15, 2020 Anesthesia Post Procedure Vital Signs Vital Signs: Temp Pulse Pulse Resp BP BP Pulse Ox 03/15/20 07:46 36.4 C L 70 18 117/69 97 03/15/20 07:03 77 14 96 03/15/20 03:35 36.3 C L 70 15 118/75 96 03/14/20 23:16 36.7 C 70 16 111/69 97 03/14/20 20:03 70 116/71 97 03/14/20 17:20 36.4 C L 70 16 106/64 98 03/14/20 16:16 36.5 C 70 16 110/67 98 03/14/20 15:16 36.3 C L 69 16 95/60 L 97 03/14/20 14:47 71 15 103/63 98 03/14/20 14:15 36.4 C L 70 15 101/64 99 03/14/20 13:35 36.6 C 72 18 98/64 L 97 03/14/20 13:25 36.6 C 70 18 103/64 94 03/14/20 12:54 36.6 C 71 17 99/62 L 95 03/14/20 12:45 80 15 98/64 L 95 03/14/20 12:37 36.6 C 71 12 90/57 L 97 Pain Intensity Left 2nd Digit Toe: Pain Intensity: 4 Notes Mental Status: alert / awake / arousable Patient Amnestic to Procedure: Yes Nausea / Vomiting: adequately controlled Pain: adequately controlled Airway Patency, RR, SpO2: stable & adequate BP & HR: stable & adequate Hydration State: stable & adequate Anesthetic Complications: no major complications apparent and Pt Satisfied with anesthetic care
[2020-03-15] MEDS: ASPIRIN 81 MG ECTAB PO SCH (12:13)
[2020-03-15] MEDS: PRAMIPEXOLE DIHYDROCHLO 0.5 MG TAB PO SCH ×2 (12:13→20:40)
[2020-03-15] MEDS: PANTOprazole 40 MG TAB PO SCH (12:13)
[2020-03-15] MEDS: MAGNESIUM OXIDE 400 MG TAB PO SCH (20:40)
[2020-03-15] MEDS: TACROLIMUS 0.5 MG CAP PO SCH (20:40)
[2020-03-15] MEDS: TAMSULOSIN HCL 0.4 MG CAP PO SCH (20:40)
[2020-03-16] MEDS: ALBUTEROL 0.083% NEBU SOLN 3 ML VIAL INH SCH (07:29)
[2020-03-16] MEDS: TACROLIMUS 1 MG CAP PO SCH (08:38)
[2020-03-16] MEDS: ALPRAZolam 0.5 MG TABLET PO SCH ×2 (08:38→11:14)
[2020-03-16] MEDS: ISOSORBIDE MONO EXTENDED REL 30 MG TABCR PO SCH (08:38)
[2020-03-16] MEDS: FUROSEMIDE 40 MG TAB PO SCH (08:38)
[2020-03-16] MEDS: FERROUS SULFATE 325 MG TAB PO SCH (08:38)
[2020-03-16] MEDS: METOPROLOL TARTRATE 25 MG TAB PO SCH (08:38)
[2020-03-16] MEDS: PANCREAZE (LIPASE 10,500U) CAP PO SCH ×2 (08:38→11:14)
[2020-03-16] MEDS: SERTRALINE HCL 100 MG TABLET PO SCH (08:38)
[2020-03-16] MEDS: dilTIAZem ER 120 MG CAPCR PO SCH (08:39)
[2020-03-16] MEDS: FOLIC ACID 400 MCG TAB PO SCH (08:39)
[2020-03-16] MEDS: FLUTICASONE/VILANTEROL 100/25MCG 14 PUFFS/INHALER INH SCH (08:39)
[2020-03-16] MEDS: LOPERAMIDE HCL 2 MG CAP PO SCH (08:39)
[2020-03-16] MEDS: MULTIVITAMIN TAB PO SCH (08:39)
--- NOTE | 2020-03-16 09:39 | Orthopedic Progress Note ---
Date of Service March 16, 2020 Assessment & Plan (1) Acute osteomyelitis of toe of left foot: 74 yo male stable POD #2 s/p left 2nd toe partial amputation 1. Med management 2. DVT prophylaxis- SCDs 3. PT/OT 4. D/C planning- home today Admission and Anticipated Discharge Date Admission Date: March 14, 2020 Subjective Pt resting in bed, denies complaints Physical Exam Physical Exam: Dressing changed, wound C/D/I, clean dressing applied Results & Data ([facility]) Vital Signs (Past 12 Hours) Vital Signs Temp Pulse Resp BP Pulse Ox 03/16/20 07:30 77 14 98 03/16/20 07:13 36.6 C 67 18 96/63 L 93 03/15/20 23:23 36.3 C L 70 16 125/77 98
[2020-03-16] MEDS: PANTOprazole 40 MG TAB PO SCH (11:14)
[2020-03-16] MEDS: ASPIRIN 81 MG ECTAB PO SCH (11:14)
[2020-03-16] MEDS: PRAMIPEXOLE DIHYDROCHLO 0.5 MG TAB PO SCH (11:14)
--- NOTE | 2020-03-21 16:54 | Discharge Summary ---
Date of Service March 21, 2020 Admission HPI Per Admitting Provider This is a patient with a hx of a left 2nd toe ulceration that was treated conservatively with wound clinic, dressing changes, and IV antibiotics. He wasn't making much progress and x-rays and CT of the foot demonstrated erosion of the 2nd toe distal phalanx. He is now being set up for surgical management. Principal Diagnosis left 2nd toe distal phalanx osteomyelitis Discharge Exam Constitutional well developed and well nourished ENMT external ear and nose normal, oropharynx normal Neck trachea midline, no thyromegaly Respiratory normal respiratory effort, lungs clear to auscultation Cardiovascular Rate/Rhythm: regular rate Gastrointestinal (Abdomen) normal bowel sounds, soft, nontender, no hepatosplenomegaly Skin no rashes, warm and dry (left 2nd toe with well approximated partial amp flap) Psychiatric A+Ox3, euthymic affect Lymphatic no cervical or axillary lymphadenopathy Discharge Data Allergies Allergy/AdvReac Type Severity Reaction Status Date / Time acetaminophen Allergy Unknown Unknown. Verified 03/14/20 08:44 gabapentin AdvReac Intermediate Chest Pain Verified 03/14/20 08:44 lactose AdvReac Mild Gastrointestinal Verified 03/14/20 08:44 Upset morphine AdvReac Mild FELT LOOPY Verified 03/14/20 08:44 Consultations 03/14/20 14:54 Consult Case Management - Discharge Planning Routine Procedures Performed Operation Date: 03/14/20 09:20 Actual Procedures p Left Foot Distal 2nd Toe Amputation(Left) - Sriram Solomon DO Ordered Studies 03/14/20 05:00 US guide needle placement Stat Hospital Course (1) Acute osteomyelitis of toe of left foot: The patient was admitted on 03.14.2020 and underwent a left foot partial 2nd toe amputation. He was admitted for medical management and to set up home health upon discharge. He did well on POD #1 and POD #2 and was discharged home on POD #2. 74 yo male stable POD #2 s/p left 2nd toe partial amputation 1. Med management 2. DVT prophylaxis- SCDs 3. PT/OT 4. D/C planning- home today Total Time Total Time Spent Total Time Spent (In Minutes): 30 Total Time Includes: Examination of the Patient, Discharge Planning and Medication Reconciliation Discharge Plan Discharge Items Patient Disposition: Home - Self-Care Reason For Visit: Left 2nd Toe Osteomyelitis Discharge Diagnosis: left 2nd toe distal phalanx osteomyelitis Activity: Per Instructions section Weightbearing Comment: heel weightbearing only Non-emergency contact: Surgeon Call non-emergency contact if: your pain is not controlled, your pain is worsening and your temperature is above 101.5 Follow-up/Referrals: Sriram Solomon DO [Surgeon] - 03/20/20 8:15 am (We will call 's office on Tuesday and call you with date and time ) Milton Romeo [Primary Care Provider] - Diet: Heart Healthy Addtl Attending Provider Instructions: ACTIVITY RECOMMENDATIONS: Limitations: Heel weight bearing only if able to tolerate. SPECIAL CARE INSTRUCTIONS: * Some drainage onto the dressing is normal and is no cause for alarm. * Some swelling is natural especially after walking. * When resting, keep your foot elevated above the level of your heart. * Call [facility] if you notice: -Increased drainage -Fever over 101 degrees F -Severe constant pain BANDAGE: * Daily dressing change * Keep bandage/cast dry at all times. PIN CARE: * Leave pins alone. * If pins come loose or fall out, notify physician. FOLLOW UP VISIT WITH DR. SOLOMON If appointment is not already scheduled: Please call [facility] after you get home today to schedule a follow-up appointment for [address] Solomon at . Pending Studies at Discharge: No Stand-Alone Forms: Anesthesia/Sedation, Adult, [facility], Opioid Pain Management Medications and DC Order Prescriptions: New oxycodone 5 mg capsule 5 mg PO Q6H PRN (Reason: pain) Qty: 20 RF: 0 Continued pramipexole [Mirapex] 1 mg tablet 2 mg PO QPM RF: 0 furosemide 40 mg tablet 40 mg PO QAM RF: 0 alprazolam [Xanax] 1 mg tablet 1 mg PO BID RF: 0 isosorbide mononitrate 30 mg tablet extended release 24 hr 30 mg PO QAM RF: 0 sertraline [Zoloft] 100 mg tablet 150 mg PO DAILY RF: 0 tamsulosin [Flomax] 0.4 mg capsule 0.4 mg PO QPM RF: 0 diltiazem HCl [Tiazac] 120 mg capsule,extended release 24 hr 120 mg PO QAM RF: 0 folic acid 400 mcg Tablet 0.4 mg PO DAILY RF: 0 Breo Ellipta 100-25 mcg/dose Blister With Device 1 inh INHALATION DAILY RF: 0 Creon 12,000-38,000 -60,000 unit capsule,delayed release(DR/EC) 1 cap PO AC Qty: 1 RF: 0 albuterol sulfate 0.63 mg/3 mL Solution For Nebulization 0.63 mg INHALATION QAM RF: 0 sulfamethoxazole-trimethoprim [Bactrim DS] 800-160 mg Tablet 1 tab PO BID RF: 0 ferrous sulfate 325 mg (65 mg iron) Tablet 325 mg PO QAM RF: 0 lutein 20 mg Capsule 20 mg PO QAM RF: 0 alprazolam 1 mg tablet 0.5 mg PO DAILY RF: 0 loperamide [Imodium A-D] 2 mg Tablet 2 mg PO BID RF: 0 pramipexole [Mirapex] 1 mg tablet 1 mg PO DAILY@12 RF: 0 aspirin [Aspirin Low Dose] 81 mg Tablet,Delayed Release (Dr/Ec) 81 mg PO .NOON RF: 0 pantoprazole [Protonix] 40 mg tablet,delayed release (DR/EC) 40 mg PO DAILY@12 RF: 0 metoprolol tartrate 50 mg tablet 75 mg PO BID RF: 0 tacrolimus [Prograf] 1 mg capsule 1 mg PO QAM RF: 0 tacrolimus [Prograf] 0.5 mg capsule 0.5 mg PO QPM RF: 0 magnesium oxide 400 mg magnesium Tablet 400 mg PO HS RF: 0 Discontinued oxycodone 5 mg Tablet 5 mg PO BID RF: 0 Discharge Orders: Discharge Order (Routine); Ordered 03/16/20 Ordered By: Woo Roque/Other Patient Handouts: DVT Post Op Prevention Admission Data Admit Date/Time: 03/14/20 14:36 Attending Provider: Sriram Solomon Admit Provider: Sriram Solomon Primary Care Provider: Milton Romeo Other Interventions: Discharge Summary Assessment (RN) Last Done: 03/16/20 10:04 DC Date/Time DO NOT enter until pt leaves facility: 03/16/20 14:16
== END 2020-03-16 14:16 | disposition home or self-care (01) ==
LOC: ASU 08:00 → 3E 08:00

== ENCOUNTER 2020-08-10 01:30 | Observation (INO) ==
[2020-08-10] MEDS ORDERED: ALBUT/IPRATROP 3MG/0.5MG NEB 3 ML VIAL NEB ONE (01:40)
[2020-08-10] MEDS ORDERED: FUROSEMIDE 40 MG/4 ML VIAL IV STA (01:42)
[2020-08-10 01:54] LABS: Basophils # (auto) 0.01 K/uL (0-0.2); Basophils % (auto) 0.2 %; Eosinophils # (auto) 0.34 K/uL (0-0.5); Eosinophils % (auto) 7.8 %; Hematocrit (blood only) 36.1 % (42-52); Hemoglobin 11.9 g/dL (14.0-18.0); Lymphocytes # (auto) 0.81 K/uL (1.2-3.4); Lymphocytes % (auto) 18.7 %; Mean Corpuscular Hemoglobin 30.6 pg (25-34); Mean Corpuscular Volume 92.8 fL (80-100); Mean Platelet Volume 11.7 fL (7.4-10.4); Monocytes # (auto) 0.29 K/uL (0.11-0.59); Monocytes % (auto) 6.7 %; Neutrophils # (auto) 2.89 K/uL (1.4-6.5); Neutrophils % (auto) 66.6 %; Platelet Count 143 K/uL (130-400); RDW Coefficient of Variation 15.4 % (11.5-14.5); Red Blood Count 3.89 M/uL (4.7-6.1); White Blood Count 4.34 K/uL (4.8-10.8)
[2020-08-10 02:05] LABS: INR 1.1 (0.9-1.1); Partial Thromboplastin Ratio 1.2; Partial Thromboplastin Time 32.7 Seconds (21.0-31.0); Prothrombin Time 11.9 Seconds (9.0-12.0)
[2020-08-10 03:06] LABS: Alanine Aminotransferase 13 U/L (12-78); Albumin Globulin Ratio 0.8 (0.9-2); Albumin Level 3.5 gm/dl (3.4-5.0); Alkaline Phosphatase 98 U/L (45-117); Aspartate Aminotransferase 22 U/L (15-37); BUN Creatinine Ratio 16.7 (10-20); Blood Urea Nitrogen 21 mg/dl (7-18); Carbon Dioxide 25 mmol/L (21-32); Chloride 111 mmol/L (98-107); Creatine Kinase 68 U/L (39-308); Creatine Kinase MB 1.5 ng/ml (0.5-3.6); Creatinine Clr Calc Pharmacy 60.3 ml/min; Est GFR (African American) 63.2; Est GFR (Non-African American) 54.5; Globulin 4.2 gm/dl (2.5-4.0); Glucose 112 mg/dl (70-99); Lipase 86 U/L (73-393); Potassium 4.1 mmol/L (3.5-5.1); Sodium 142 mmol/L (136-145); Total Protein 7.7 gm/dl (6.4-8.2); Troponin I < 0.015 ng/ml (0-0.045)
[2020-08-10] MEDS ORDERED: VANCOMYCIN HCL 2,000 MG in SODIUM CHLORIDE 0.9% 500 ML IV ONE ×2 (03:15→10:18)
[2020-08-10] MEDS ORDERED: VANCOMYCIN CONSULT ACTIVE PRN ×2 (03:15→10:18)
[2020-08-10] MEDS ORDERED: PIPERACILL/TAZOBAC CONSULT ACTIVE PRN ×2 (03:15→10:18)
[2020-08-10] MEDS ORDERED: LEVOFLOXACIN/D5W 750 MG/150 ML BAG IV STA (03:15)
[2020-08-10] MEDS ORDERED: PIPERACILLIN/TAZOBACTAM 4.5 GM/120 ML BAG IV ONE ×2 (03:15→10:45)
[2020-08-10 03:16] LABS: Bilirubin,Total 0.6 mg/dl (0.2-1); NT Pro B Type Natriuretic Pept 2726 pg/ml (0-1800)
[2020-08-10 03:47] LABS: D Dimer 4110 ug/L FEU (0-500)
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
[2020-08-10] MEDS ORDERED: OPTIRAY 320 125ml IV ONE (05:57)
--- NOTE | 2020-08-10 07:40 | CT Scan Report ---
CT ANGIOGRAPHY OF THE CHEST, PULMONARY EMBOLUS PROTOCOL CLINICAL HISTORY: Shortness of breath. Evaluate for pulmonary embolus. COMPARISON STUDY: Chest CT June 24, 2018. Chest radiograph August 10, 2020. TECHNIQUE: Following IV administration of 120 mL of Optiray-320, helical axial images of the chest we re obtained utilizing the pulmonary embolus protocol. Maximal intensity projections and sagittal and coronal reformats were viewed on an independent 3D workstation. IV contrast was administered withou t complication. Automated exposure control was utilized for the study. A dose lowering technique wa s utilized adhering to the principles of ALARA. CT DOSE: 1053.84 mGy.cm FINDINGS: No pulmonary emboli are identified although the segmental and subsegmental pulmonary arter ies are suboptimally assessed on this examination. A left subclavian biventricular pacer is in place. Central pulmonary arteries are mildly dilated. There is moderate cardiomegaly. There is no pericardi al effusion. No thoracic aortic dissection is noted. Extensive coronary artery calcification is noted . Small to moderate right pleural effusion is noted. There is extensive bilateral lower lobe airspace opacity with volume loss. There is also right middle lobe atelectasis. No central obstructing mass i s identified although lungs are suboptimally assessed given respiratory motion. There are mild airspa ce opacities within the left upper lobe. Mild interlobular septal thickening is noted. There are secr etions within the bilateral lower lobe segmental bronchi. Multinodular thyroid gland is again noted. There are old thoracic spine compression fractures. Visualized portions of the upper abdomen demonstr ate cirrhosis with splenomegaly, varices formation and a small amount of ascites. IMPRESSION: 1. No pulmonary emboli identified although segmental and subsegmental pulmonary arteries suboptimally assessed given respiratory motion. 2. Moderate cardiomegaly. Mild dilatation of the central pulmonary arteries. 3. Small to moderate right pleural effusion. Extensive bilateral lower lobe airspace opacity which co uld reflect pneumonia or atelectasis. Right middle lobe atelectasis with no central obstructing mass. Secretions within bilateral lower lobe bronchi. 4. Patchy airspace opacities within the lungs which favor an infectious process. 5. Interlobular septal thickening suggestive of mild pulmonary edema. 6. Cirrhosis with splenomegaly, varices formation and a small amount of ascites. ACT 112: Negative or not required by law. Electronically signed by: Ulices Ferrell M.D. 08/10/2020 7:39 AM
--- NOTE | 2020-08-10 08:23 | XRay Report ---
XR chest 1V portable CLINICAL HISTORY: Atypical chest pain COMPARISON STUDY: The 2019 FINDINGS: The heart is enlarged. There is a left subclavian central venous pacemaker. There is a tria ngular opacity at the level the right cardiophrenic angle, atelectasis versus pneumonia. Clinical and radiographic follow-up is recommended. Trace pleural effusions are suspected. There are increased in terstitial markings at the left lung base.[ IMPRESSION: 1. Cardiomegaly and trace bilateral pleural effusions 2. Triangular opacity at the level the right cardiophrenic angle, pneumonia versus atelectasis. Clini timothy and radiographic follow-up is recommended. ACT 112: Negative or not required by law. Electronically signed by: Kashif Preciado M.D. 08/10/2020 8:22 AM
--- NOTE | 2020-08-10 10:02 | Electrocardiogram Report ---
Test Reason : Blood Pressure : / mmHG Vent. Rate : 071 BPM Atrial Rate : 040 BPM P-R Int : 000 ms QRS Dur : 186 ms QT Int : 498 ms P-R-T Axes : 000 -32 077 degrees QTc Int : 541 ms Poor data quality, interpretation may be adversely affected Ventricular-paced rhythm Biventricular pacemaker detected Abnormal ECG When compared with ECG of 15-JAN-2020 15:15, No significant change was found Confirmed by Korey Almanza ([id number]) on 08/10/2020 10:01:56 AM Referred By: REFERRED SELF Confirmed By:Korey Almanza
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
[2020-08-10] MEDS ORDERED: ONDANSETRON INJ 2 MG/ML 2 ML VIAL IV PRN (10:18)
--- NOTE | 2020-08-10 10:19 | History & Physical Report ---
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 Release)) 5 mg PO Q6H PRN PRN Reason: pain Stop: 08/24/20 12:27 Pantoprazole Sodium (Pantoprazole 40 Mg Tab) 40 mg PO QDL [facility] Stop: 09/09/20 12:16 Last Admin: 08/10/20 14:29 Dose: Not Given Documented by: Polyethylene Glycol (Polyethylene (Miralax) 17 Gm Pack) 17 gm PO DAILY [facility] Stop: 09/09/20 12:14 Last Admin: 08/10/20 14:30 Dose: Not Given Documented by: Pramipexole Dihydrochloride (Pramipexole Dihydrochlo 0.5 Mg Tab) 1 mg PO QDL [facility] Stop: 09/09/20 13:29 Last Admin: 08/10/20 14:28 Dose: Not Given Documented by: Pramipexole Dihydrochloride (Pramipexole Dihydrochlo 0.5 Mg Tab) 2 mg PO QPM [facility] Stop: 09/09/20 20:59 Sertraline HCl (Sertraline Hcl 50 Mg Tablet) 150 mg PO DAILY [facility] Stop: 09/09/20 12:16 Last Admin: 08/10/20 14:30 Dose: Not Given Documented by: Tacrolimus (Tacrolimus 1 Mg Cap) 1 mg PO QAM [facility] Stop: 09/09/20 14:14 Last Admin: 08/10/20 14:29 Dose: Not Given Documented by: Tacrolimus (Tacrolimus 0.5 Mg Cap) 0.5 mg PO HS [facility] Stop: 09/09/20 20:59 Tamsulosin HCl (Tamsulosin Hcl 0.4 Mg Cap) 0.4 mg PO QPM [facility] Stop: 09/09/20 20:59 Code Status & VTE Plan Code Status full VTE Prophylaxis Plan VTE Prophylaxis will be ordered: Yes Supervising Physician Co-Signing Physician Notes Attending attestation Pt seen and examined in concert with Dr. Diehl. In agreement with the documented findings as noted in the resident documentation with any exceptions or additions as noted here. 74 y/o male h/o liver transplant ([facility]), CHF, h/o LA/CAD/CVA, pacemaker placement, lyme w/ residual bilateral LE paresthesias, TBI remotely, prostate cancer p/w progressive SOB Resting in bed following diuresis feeling that his breathing is back to baseline though he is still somewhat weak. Reports that the symptoms onset 1-2 weeks ago when he decided to stop taking his furosemide because he was unable to engage in daily activities without urinating frequently and finds that embarassing. He reports no fever, chills, n/v/d/c, sensation changes, GASCA, face pain, rashes. On examination, S1/S2 nl RRR no MCG. Decreased breath sounds bilateral bases with scattered mild end expiratory wheeze and subtle rales. Abd NT/ND BS+ve HFpEF w/ acute exacerbation - furosemide diuresis with 40mg daily. Trend BMP, strict I/Os. ASA, metoprolol, Imdur, ASA. No apparent statin therapy, will need records. Pneumonia w/ immunosuppressed patient - CT chest w/ pleural effusions w/ patchy opacities - empyema v. effusion - pulmonology consultation appreciated - vancomycin, zosyn and follow cultures. Breo, duonebs q4P, monitor pulse O2, supplemental O2 per protocol. h/o liver transplant - continue tacrolimus and pramipexole therapy, obtain records from [facility] re: status and management Else see resident documentation as noted. Resident Activity Tracking Resident Involvement: Resident Care Provided Care Provided: Adult Hospital Medicine (1) Anemia Anemia type: unspecified type Qualified Code(s): D64.9 - Anemia, unspecified (2) Pneumonia Laterality: right Lung location: lower lobe of lung Pneumonia type: due to unspecified organism Qualified Code(s): J18.1 - Lobar pneumonia, unspecified organism
[2020-08-10] MEDS ORDERED: ALBUTEROL HFA 8 GM INHALER INH PRN (12:17)
[2020-08-10] MEDS ORDERED: NON-FORMULARY MEDICATION (Lutein 20 MG) PO SCH (12:17)
[2020-08-10] MEDS ORDERED: PRAMIPEXOLE 1 MG PO SCH (12:17)
[2020-08-10] MEDS ORDERED: IBUPROFEN 200 MG TAB PO PRN (12:25)
[2020-08-10] MEDS ORDERED: OXYCODONE HCL IR 5 MG TAB (IMMEDIATE RELEASE) PO PRN (12:28)
[2020-08-10] MEDS: FUROSEMIDE 40 MG TAB PO SCH (14:27)
[2020-08-10] MEDS: FOLIC ACID 400 MCG TAB PO SCH (14:27)
[2020-08-10] MEDS: ASPIRIN 81 MG ECTAB PO SCH (14:27)
[2020-08-10] MEDS: LOPERAMIDE HCL 2 MG CAP PO SCH ×2 (14:28→21:07)
[2020-08-10] MEDS: ALPRAZolam 0.5 MG TABLET PO SCH ×2 (14:28→21:08)
[2020-08-10] MEDS: PRAMIPEXOLE DIHYDROCHLO 0.5 MG TAB PO SCH (14:28)
[2020-08-10] MEDS: TACROLIMUS 1 MG CAP PO SCH (14:29)
[2020-08-10] MEDS: FERROUS SULFATE 325 MG TAB PO SCH (14:29)
[2020-08-10] MEDS: METOPROLOL TARTRATE 50 MG TAB PO SCH ×2 (14:29→21:06)
[2020-08-10] MEDS: ISOSORBIDE MONO EXTENDED REL 30 MG TABCR PO SCH (14:29)
[2020-08-10] MEDS: PANTOprazole 40 MG TAB PO SCH (14:29)
[2020-08-10] MEDS: SERTRALINE HCL 50 MG TABLET PO SCH (14:30)
[2020-08-10] MEDS: dilTIAZem ER 120 MG CAPCR PO SCH (14:30)
[2020-08-10] MEDS: POLYETHYLENE (MIRALAX) 17 GM PACK PO SCH (14:30)
[2020-08-10] MEDS: ALBUTEROL 0.083% NEBU SOLN 3 ML VIAL INH SCH (15:00)
[2020-08-10] MEDS: FLUTICASONE/VILANTEROL 100/25MCG 14 PUFFS/INHALER INH SCH (15:13)
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
--- NOTE | 2020-08-10 15:28 | Pharmacy Report ---
Pharmacy Abx Initial Consult - Date of Service August 10, 2020 - Pharmacy Dosing Scope Date of Consult: 08/10/20 Consultation requested by: Dr. Diehl Pharmacy is consulted to initiate vancomycin and Zosyn IV dosing therapy, order appropriate labs and adjust drug dose/frequency. - Subjective The patient is a 74 year old M admitted on 08/10/20 10:27. - Objective Height: 5 ft 10 in Weight: 106 kg Vital Signs (Past 12hrs): Vital Signs Temp Pulse Pulse Resp BP BP Pulse Ox 08/10/20 15:00 70 16 95 08/10/20 11:57 36.6 C 66 16 161/89 H 98 08/10/20 11:01 70 21 163/97 H 97 08/10/20 10:30 71 20 177/95 H 96 08/10/20 10:00 83 23 160/98 H 98 08/10/20 09:00 70 17 151/86 H 95 08/10/20 08:31 71 18 140/79 98 08/10/20 08:00 70 26 H 147/86 H 96 08/10/20 07:30 70 19 151/81 H 97 08/10/20 07:00 22 136/87 99 08/10/20 06:00 70 20 132/83 95 08/10/20 05:30 70 20 129/78 98 08/10/20 05:00 70 20 127/69 98 08/10/20 04:30 70 20 112/61 99 08/10/20 04:00 71 20 109/68 97 08/10/20 03:30 71 16 124/76 95 Lab Results (24hrs): Laboratory Tests (24 Hours) 08/10/20 08/10/20 08/10/20 01:43 01:43 01:43 WBC 4.34 L Neut # (Auto) 2.89 ESR 10 Creatinine 1.27 Est Cr Clr Drug Dosing 60.3 Total Creatine Kinase 68 C-Reactive Protein 0.30 H Micro Results: 08/10/20 04:06 Aerobic Blood Culture - Pending Blood Anaerobic Blood Culture - Pending 08/10/20 04:06 Aerobic Blood Culture - Pending Blood Anaerobic Blood Culture - Pending - Assessment & Plan Assessment 74 year old M receiving empiric vancomycin and Zosyn for treatment of possible pneumonia. Patient is s/p liver transplant (2002) and currently takes tacrolimus for immunosuppression. He also has a history of prostate cancer w/ mets to the bone s/p radiation therapy 3 years ago. Patient presented to [facility] ED early on 08/10 with complaint of shortness of breath. Chest CTA revealed patchy airspace opacities within the lungs which favor an infectious process as well as bilateral pleural effusion. Patient has had 14 pound weight gain in last 2 weeks (not taking prescribed furosemide). Blood cultures x 2 + nasal MRSA swab ordered and pending. Plan Vancomycin IV * Estimated PK Parameters: Vd 0.6 L/kg, Nestor 0.0542 hr-1, t1/2 12 hr * Loading dose: 2000 mg (19 mg/kg) * Maintenance dose: 1250 mg IV (12 mg/kg) every 14 hours * Goal trough level for pneumonia : 15 to 20 mcg/mL * Trough/Random level ordered for 08/12/20 Piperacillin/tazobactam * 4.5 g bolus administered over 30 minutes, then 3.375 g IV extended infusion every 8 hours for CrCl greater than 20 mL/min Pharmacy will continue to follow and will adjust dose/frequency as necessary. Thank you.
[2020-08-10] MEDS: PIPERACILLIN/TAZOBACTAM 3.375 GM in DEXTROSE 5% 100 ML IV SCH ×2 (16:11→23:59)
[2020-08-10] MEDS: VANCOMYCIN HCL 1,250 MG in SODIUM CHLORIDE 0.9% 250 ML IV SCH (16:11)
[2020-08-10] MEDS ORDERED: PRAMIPEXOLE DIHYDROCHLORIDE 1 MG TAB PO SCH (21:00)
[2020-08-10] MEDS ORDERED: TAMSULOSIN HCL 0.4 MG CAP PO SCH (21:00)
[2020-08-10] MEDS ORDERED: MAGNESIUM OXIDE 400 MG TAB PO SCH (21:00)
[2020-08-10] MEDS ORDERED: TACROLIMUS 0.5 MG CAP PO SCH (21:00)
[2020-08-10] MEDS ORDERED: PRAMIPEXOLE DIHYDROCHLO 0.5 MG TAB PO SCH (21:00)
[2020-08-11] MEDS: VANCOMYCIN HCL 1,250 MG in SODIUM CHLORIDE 0.9% 250 ML IV SCH (06:17)
[2020-08-11 06:29] LABS: Eosinophils # (auto) 0.11 K/uL (0-0.5); Eosinophils % (auto) 2.3 %; Hematocrit (blood only) 36.2 % (42-52); Immature Granulocytes # (auto) 0.01 K/uL (0.00-0.02); Immature Granulocytes % (auto) 0.2 %; Lymphocytes # (auto) 0.65 K/uL (1.2-3.4); Lymphocytes % (auto) 13.3 %; Mean Corpuscular Hemoglobin 30.8 pg (25-34); Mean Corpuscular Hgb Conc 33.1 g/dL (32-36); Mean Corpuscular Volume 92.8 fL (80-100); Mean Platelet Volume 11.6 fL (7.4-10.4); Monocytes # (auto) 0.31 K/uL (0.11-0.59); Monocytes % (auto) 6.4 %; Neutrophils # (auto) 3.79 K/uL (1.4-6.5); Neutrophils % (auto) 77.8 %; Platelet Count 117 K/uL (130-400); RDW Coefficient of Variation 15.1 % (11.5-14.5); RDW Standard Deviation 50.8 fL (36.4-46.3); White Blood Count 4.87 K/uL (4.8-10.8)
[2020-08-11 07:01] LABS: Albumin Level 3.2 gm/dl (3.4-5.0); BUN Creatinine Ratio 15.9 (10-20); Calcium 8.7 mg/dl (8.5-10.1); Creatinine Clr Calc Pharmacy 54.5 ml/min; Est GFR (African American) 59.2; Est GFR (Non-African American) 51.1; Potassium 3.7 mmol/L (3.5-5.1)
[2020-08-11 07:03] LABS: Albumin Globulin Ratio 0.8 (0.9-2); Bilirubin,Total 0.8 mg/dl (0.2-1); Globulin 4.2 gm/dl (2.5-4.0); Total Protein 7.4 gm/dl (6.4-8.2)
[2020-08-11] MEDS: ALBUTEROL 0.083% NEBU SOLN 3 ML VIAL INH SCH (07:06)
--- NOTE | 2020-08-11 07:07 | XRay Report ---
XR chest 1V portable HISTORY: 74 years-old Male Follow-up follow-up study in a patient with bibasilar opacities COMPARISON: Chest radiograph and CTA chest 08/10/2020 TECHNIQUE: Portable AP view of the chest FINDINGS: Cardiac silhouette is enlarged. Left subclavian pacer. Pulmonary vascular congestion with interstitia l coarsening. Trace left and small right pleural effusions. No pneumothorax. Interstitial coarsening of the lung bases with linear subsegmental bibasilar opacities redemonstrated. There is a triangular opacity of the medial right lung base which is unchanged. Bones appear grossly intact. IMPRESSION: 1. Cardiomegaly with pulmonary edema. 2. Trace left and small right pleural effusions redemonstrated. 3. Bibasilar predominant opacities suggestive of atelectasis versus pneumonitis with right middle lob e atelectasis redemonstrated. ACT 112: Negative or not required by law. The above report was generated using voice recognition software. It may contain grammatical, syntax o r spelling errors. Electronically signed by: Rudy Figueroa M.D. 08/11/2020 7:05 AM
[2020-08-11 07:08] LABS: Platelet Estimate Decreased (Normal)
[2020-08-11] MEDS: FLUTICASONE/VILANTEROL 100/25MCG 14 PUFFS/INHALER INH SCH (08:12)
[2020-08-11] MEDS: FOLIC ACID 400 MCG TAB PO SCH (08:13)
[2020-08-11] MEDS: dilTIAZem ER 120 MG CAPCR PO SCH (08:14)
[2020-08-11] MEDS: TACROLIMUS 1 MG CAP PO SCH (08:15)
[2020-08-11] MEDS: SERTRALINE HCL 50 MG TABLET PO SCH (08:16)
[2020-08-11] MEDS: FUROSEMIDE 40 MG TAB PO SCH (08:16)
[2020-08-11] MEDS: FERROUS SULFATE 325 MG TAB PO SCH (08:16)
[2020-08-11] MEDS: ISOSORBIDE MONO EXTENDED REL 30 MG TABCR PO SCH (08:17)
[2020-08-11] MEDS: PIPERACILLIN/TAZOBACTAM 3.375 GM in DEXTROSE 5% 100 ML IV SCH (08:21)
[2020-08-11] MEDS: POLYETHYLENE (MIRALAX) 17 GM PACK PO SCH (08:21)
[2020-08-11] MEDS: LOPERAMIDE HCL 2 MG CAP PO SCH (08:43)
--- NOTE | 2020-08-11 08:50 | Pulmonology Progress Note ---
Date of Service August 11, 2020 Assessment & Plan (1) Acute respiratory failure with hypoxia: Impression: 74-year-old male with a history of liver transplant in 2003 currently maintained on tacrolimus and remote history of prostate cancer presenting with shortness of breath pleural effusions and probable pneumonia. He is markedly better with diuretics. His procalcitonin was elevated. Suspect his hypoxemia was multifactorial due to combinations of fluid overload as well as potential pneumonia Recommendations: 1. Hypoxemic respiratory failure: Resolved with diuresis.. Continue to monitor and would assess with to step for supplemental oxygen prior to consideration of discharge. 2. Possible pneumonia: The patient's procalcitonin was elevated and he does have some patchy airspace opacity. He is currently day #2 Zosyn. Okay to de- escalate to Rocephin and then transition to Ceftin orally for 7 to 10 days. Doxycycline or azithromycin should be used for atypical coverage. 3. Abnormal CT scan: The atelectasis of the right middle lobe appears chronic however given the patient's immune suppression, follow-up chest radiograph and/or CT scan should be performed in about 4 weeks to document resolution of the basilar airspace opacity. The patient appears to be approaching dismissal from the hospital. Ultimate disposition per primary service. We would be happy to see him back with follow- up imaging work can be followed up with his primary care provider. (2) SOB (shortness of breath): (3) Abnormal CT scan of lung: Admission and Anticipated Discharge Date Admission Date: August 10, 2020 Subjective Patient seen and examined. EMR reviewed. Discussed with patient at bedside and with Dr. Borrego. Patient reports that his breathing is significantly improved. He feels back to baseline. He is asking about being dismissed from the hospital. He is tolerating a diet. He denies any cough, wheezing, or shortness of breath. His lower extremity edema is markedly better as well. Review of Systems Review of Systems: All systems reviewed & are unremarkable except as noted in HPI & below Physical Exam Constitutional: WD/WN, vitals as above Neck: trachea midline, no thyromegaly Respiratory: normal respiratory effort; no respiratory distress and does not use accessory muscles Auscultation: + rales Cardiovascular: RRR, no murmur, no edema Gastrointestinal (Abdomen): normal bowel sounds, soft, nontender, no hepatosplenomegaly Musculoskeletal: Extremities: extremities normal to inspection Skin: no rashes, warm and dry Neurologic: Nonfocal exam Lymphatic: no cervical lymphadenopathy Results & Data Results & Data ([facility]) Vital Signs (Past 12 Hours) Vital Signs Temp Pulse Pulse Pulse Resp BP Pulse Ox 08/11/20 08:21 36.5 C 70 20 120/76 93 08/11/20 07:07 70 16 96 08/11/20 03:53 36.6 C 71 18 128/73 95 08/10/20 23:36 36.5 C 70 18 126/71 97 08/10/20 23:00 70 Laboratory Results 08/11/20 06:09 08/11/20 06:09 Procalcitonin elevated at 2.55 Cultures no growth to date Diagnostic Findings Chest x-ray from today was independently reviewed. There is a focal area of atelectasis/airspace opacity in the right midlung zone. The hemidiaphragms appear better aerated. Pacemaker in place. PG Care Time/CCT Total # of Minutes Spent Total Time Spent with Patient: Total time spent is greater than 50% in coordination of care (as documented) at patient's floor/unit and/or counseling patient: Coding Level of Care Code 62814 Subseq Hosp Care Lvl 3 Diagnoses Acute respiratory failure with hypoxia J96.01 SOB (shortness of breath) R06.[address] scan of lung R91.8 Time Spent (min) 35
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
[2020-08-11] MEDS: METOPROLOL TARTRATE 50 MG TAB PO SCH (11:30)
[2020-08-11] MEDS: PRAMIPEXOLE DIHYDROCHLO 0.5 MG TAB PO SCH (11:31)
[2020-08-11] MEDS: PANTOprazole 40 MG TAB PO SCH (11:31)
[2020-08-11] MEDS: ALPRAZolam 0.5 MG TABLET PO SCH (12:08)
[2020-08-11] MEDS: ASPIRIN 81 MG ECTAB PO SCH (13:57)
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
--- NOTE | 2020-08-11 15:14 | History & Physical Bridge Note ---
Date of Service August 11, 2020 History & Physical Bridge Note By CMS guidelines, a determination that the admission or continued stay is not medically necessary has been made by a member of the UR committee and a physician for this hospital stay, therefore a Code 44 will be completed and the Inpatient admission will be changed to outpatient. Yang Melendrez D.O.
--- NOTE | 2020-08-11 19:27 | Billing Data ---
Date of Service August 11, 2020 Coding Level of Care Code 69839 OBS Care - Discharge
--- NOTE | 2020-08-11 19:28 | Communication Note ---
Date of Service: August 11, 2020 asked to clarify if CKD 3 - possible vs age adjusted Cr based on cockroft gault suggesting this, but pt being at upper normal creatinine. outpt f/u.
[2020-08-12] MEDS ORDERED: VANCOMYCIN TROUGH ONE (09:30)
== END 2020-08-11 16:00 | disposition home or self-care (01) ==
LOC: ED 01:30 → 2S 10:27 → INTOOBSV 10:27 → SUATTDRO 10:27 → 2S 11:49

== ENCOUNTER 2020-12-23 04:54 | Inpatient (IN) ==
[2020-12-23] MEDS ORDERED: fentaNYL citrate 100 MCG/2 ML VIAL IV STA (05:05)
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
[2020-12-23 05:23] LABS: Basophils # (auto) 0.01 K/uL (0-0.2); Basophils % (auto) 0.2 %; Eosinophils # (auto) 0.28 K/uL (0-0.5); Eosinophils % (auto) 5.9 %; Hematocrit (blood only) 35.7 % (42-52); Hemoglobin 11.6 g/dL (14.0-18.0); Immature Granulocytes # (auto) 0.01 K/uL (0.00-0.02); Immature Granulocytes % (auto) 0.2 %; Lymphocytes # (auto) 0.65 K/uL (1.2-3.4); Lymphocytes % (auto) 13.8 %; Mean Corpuscular Hemoglobin 31.7 pg (25-34); Mean Corpuscular Hgb Conc 32.5 g/dL (32-36); Mean Corpuscular Volume 97.5 fL (80-100); Mean Platelet Volume 11.4 fL (7.4-10.4); Monocytes % (auto) 8.5 %; Neutrophils # (auto) 3.37 K/uL (1.4-6.5); Neutrophils % (auto) 71.4 %; Platelet Count 133 K/uL (130-400); RDW Coefficient of Variation 15.7 % (11.5-14.5); RDW Standard Deviation 55.3 fL (36.4-46.3); Red Blood Count 3.66 M/uL (4.7-6.1); White Blood Count 4.72 K/uL (4.8-10.8)
[2020-12-23 05:33] LABS: INR 1.2 (0.9-1.1); Prothrombin Time 12.4 Seconds (9.0-12.0)
[2020-12-23 05:41] LABS: Alanine Aminotransferase 14 U/L (12-78); Albumin Level 3.2 gm/dl (3.4-5.0); Aspartate Aminotransferase 20 U/L (15-37); BUN Creatinine Ratio 17.2 (10-20); Bilirubin Direct 0.3 mg/dl (0-0.2); Blood Urea Nitrogen 26 mg/dl (7-18); Calcium 8.3 mg/dl (8.5-10.1); Carbon Dioxide 28 mmol/L (21-32); Chloride 115 mmol/L (98-107); Creatinine Clr Calc Pharmacy 51.4 ml/min; Est GFR (African American) 51.3; Est GFR (Non-African American) 44.3; Glucose 96 mg/dl (70-99); Lipase 61 U/L (73-393); Potassium 4.1 mmol/L (3.5-5.1); Sodium 144 mmol/L (136-145)
[2020-12-23 05:46] LABS: Alkaline Phosphatase 86 U/L (45-117); Bilirubin,Total 0.7 mg/dl (0.2-1); NT Pro B Type Natriuretic Pept 3256 pg/ml (0-1800); Total Protein 7.4 gm/dl (6.4-8.2); Troponin I < 0.015 ng/ml (0-0.045)
[2020-12-23] MEDS ORDERED: VANCOMYCIN HCL 2,000 MG in SODIUM CHLORIDE 0.9% 500 ML IV ONE (05:56)
[2020-12-23] MEDS ORDERED: FUROSEMIDE 40 MG/4 ML VIAL IV STA (05:56)
[2020-12-23] MEDS ORDERED: cefTRIAXone SODIUM 2,000 MG/70 ML BAG IV STA (05:56)
[2020-12-23] MEDS ORDERED: VANCOMYCIN CONSULT ACTIVE PRN (05:56)
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
[2020-12-23 06:49] LABS: Appearance Urine Clear (Clear); Bacteria Urine Automated Negative (Negative); Bilirubin Urine Negative (Negative); Blood Urine Trace (Negative); Cast Urine Automated 0 /lpf (0-5); Color Urine Dark Yellow; Epithelial Cell Urine Auto 0-5 /lpf (0-5); Glucose Urine UA Negative (Negative); Ketones Urine Negative (Negative); Leukocyte Esterase Urine Negative (Negative); Nitrite Urine Negative (Negative); Protein Urine Negative (Negative); RBC Urine Automated 0-4 /hpf (0-4); Specific Gravity Urine 1.019 (1.000-1.030); Urobilinogen Urine Negative (Negative); WBC Urine Automated 0 /hpf (0-5); pH Urine 5.5 (4.5-7.5)
--- NOTE | 2020-12-23 06:59 | XRay Report ---
XR chest 1V portable CLINICAL HISTORY: weakness COMPARISON STUDY: 08/11/2020 FINDINGS: The heart remains enlarged. There is a left subclavian pacemaker. There are trace pleural e ffusions. There is elevation of interstitium likely secondary to pulmonary vascular congestion. There are bibasilar opacities likely atelectatic although an infectious/inflammatory process could appear similar.[ IMPRESSION: 1. Cardiomegaly, radiographic evidence of mild pulmonary vascular congestion with small pleural effus ions. 2. Bibasilar opacities, atelectasis versus infectious/inflammatory. ACT 112: Negative or not required by law. Electronically signed by: Kashif Preciado M.D. 12/23/2020 6:58 AM
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
--- NOTE | 2020-12-23 07:17 | CT Scan Report ---
CT SCAN OF THE BRAIN WITHOUT IV CONTRAST CLINICAL HISTORY: Fall. COMPARISON STUDY: CT of the brain dated 01/15/2020. TECHNIQUE: Unenhanced axial CT scan of the brain is performed from the vertex to the skull base. A do se lowering technique was utilized adhering to the principles of ALARA. CT DOSE: 614.27 mGy.cm FINDINGS: Brain parenchyma: Foci of bilateral temporal encephalomalacia are unchanged unchanged and consistent with remote insults. There are age-related involutional changes noting mild to moderate subcortical and periventricular microangiopathic change. There is no hemorrhage, mass effect, or evidence of acut e territorial ischemia by CT criteria. Francisco-white matter differentiation is preserved. No extra-axial fluid collection is seen. Ventricles, sulci, cisterns: Prominent secondary to involutional change. Intracranial vasculature: There is atherosclerotic calcification of the cavernous carotid and vertebr al arteries. Calvarium: The skeletal structures are osteopenic. No depressed calvarial fracture is identified. Sinuses and mastoids: A 1.5 cm retention cyst is partially visualized in the right maxillary antrum. The remaining Visualized paranasal sinuses are clear. The mastoid air cells are well pneumatized. Orbits: The bony orbits are grossly intact. There are bilateral ocular lens implants. IMPRESSION: There is no hemorrhage, mass effect, or evidence of acute territorial ischemia by CT kizzy howe. ACT 112: Negative or not required by law. Electronically signed by: Endy Gonsalez M.D. 12/23/2020 7:16 AM
[2020-12-23] MEDS ORDERED: ONDANSETRON INJ 2 MG/ML 2 ML VIAL IV PRN (07:59)
[2020-12-23] MEDS ORDERED: NON-FORMULARY MEDICATION (Lutein 20 mg Capsule) PO SCH (09:00)
[2020-12-23] MEDS: FLUTICASONE/VILANTEROL 100/25MCG 14 PUFFS/INHALER INH SCH (09:21)
[2020-12-23] MEDS: dilTIAZem ER 120 MG CAPCR PO SCH (09:22)
[2020-12-23] MEDS: FUROSEMIDE 40 MG in SYRINGE 0 ML IV SCH ×2 (09:22→19:47)
[2020-12-23] MEDS: SERTRALINE HCL 50 MG TABLET PO SCH (09:23)
[2020-12-23] MEDS: FOLIC ACID 400 MCG TAB PO SCH (09:23)
[2020-12-23] MEDS: ISOSORBIDE MONO EXTENDED REL 30 MG TABCR PO SCH (09:23)
[2020-12-23] MEDS: FERROUS SULFATE 325 MG TAB PO SCH (09:24)
[2020-12-23] MEDS: METOPROLOL TARTRATE 50 MG TAB PO SCH ×2 (09:24→19:46)
[2020-12-23] MEDS: LOPERAMIDE HCL 2 MG CAP PO SCH ×2 (09:25→19:48)
[2020-12-23] MEDS: ALPRAZolam 0.5 MG TABLET PO SCH ×2 (10:12→22:35)
[2020-12-23] MEDS: oxyCODONE HCL IR 5 MG TAB (IMMEDIATE RELEASE) PO PRN ×2 (11:03→19:46)
[2020-12-23] MEDS: PRAMIPEXOLE DIHYDROCHLO 0.5 MG TAB PO SCH ×2 (11:04→19:47)
[2020-12-23] MEDS: PANTOprazole 40 MG TAB PO SCH (11:04)
[2020-12-23] MEDS: ASPIRIN 81 MG ECTAB PO SCH (11:04)
[2020-12-23] MEDS: PANCREAZE (LIPASE 10,500U) CAP PO SCH ×2 (11:04→17:15)
--- NOTE | 2020-12-23 11:25 | Electrocardiogram Report ---
Test Reason : Blood Pressure : / mmHG Vent. Rate : 076 BPM Atrial Rate : 102 BPM P-R Int : 000 ms QRS Dur : 158 ms QT Int : 472 ms P-R-T Axes : 000 -62 093 degrees QTc Int : 531 ms Poor data quality, interpretation may be adversely affected demand Ventricular-paced rhythm fusion beats Biventricular pacemaker detected Abnormal ECG When compared with ECG of 10-AUG-2020 01:34, Vent. rate has increased BY 5 BPM Confirmed by Cameron Michaels ([id number]) on 12/23/2020 11:25:14 AM Referred By: REFERRED SELF Confirmed By:Reynaldo Michaels
--- NOTE | 2020-12-23 19:29 | History & Physical Bridge Note ---
Date of Service December 23, 2020 History & Physical Bridge Note I have examined the patient, reviewed the History & Physical and in the interval since the performance of the History & Physical I have noted the following changes of clinical significance: Pt c/o pain in his left foot. There are two wounds there and xrays will be obtained. He otherwise feels his breathing is better since receiving lasix and has put out quite a bit of urine. Denies chest pains. Pharmacy assisted in reaching out to transplant team at [facility] to confirm his Prograf dosing and this was added to his home med rec. PT/OT consults ordered Left leg has no evidence of cellulitis as noted in ER, just a few scabs, no erythema or edema, no warmth to the touch. No further abx needed
[2020-12-23] MEDS: TAMSULOSIN HCL 0.4 MG CAP PO SCH (19:46)
[2020-12-23] MEDS: TACROLIMUS 0.5 MG CAP PO SCH (19:46)
[2020-12-23] MEDS: MAGNESIUM OXIDE 400 MG TAB PO SCH (19:46)
--- NOTE | 2020-12-23 19:54 | XRay Report ---
XR toe(s) LT min 2V HISTORY: 75 years-old Male great toe and 3rd toe wounds,assess for OM chronic wounds of the left betito t with clinical concern for osteomyelitis COMPARISON: Left foot radiographs and left foot CT 01/17/2020 TECHNIQUE: 3 views of the left foot FINDINGS: Prior amputation of the second digit distal phalanx. Demineralized appearance of the bones with moder ate multifocal osteoarthritis. There is progressively worsened joint space narrowing within the first MTP joint with cortical thickening of the first proximal phalanx suggestive of healed fracture defor mity. No acute fracture, dislocation or definite osseous erosion. Unchanged linear 7 mm metallic dens ity foreign body of the plantar midfoot. Mild diffuse soft tissue prominence. Arterial calcifications . IMPRESSION: 1. No acute fracture, dislocation or osseous erosion to suggest acute osteomyelitis. 2. Unchanged linear subcentimeter metallic density foreign body of the plantar midfoot. ACT 112: Negative or not required by law. The above report was generated using voice recognition software. It may contain grammatical, syntax o r spelling errors. Electronically signed by: Rudy Figueroa M.D. 12/23/2020 7:53 PM
[2020-12-24] MEDS ORDERED: VANCOMYCIN CONSULT ACTIVE PRN (00:10)
[2020-12-24] MEDS ORDERED: VANCOMYCIN HCL 2,500 MG in SODIUM CHLORIDE 0.9% 500 ML IV ONE (00:30)
[2020-12-24] MEDS: ALPRAZolam 0.5 MG TABLET PO SCH ×4 (00:47→21:27)
--- NOTE | 2020-12-24 01:00 | Communication Note ---
Date of Service: December 24, 2020 Night team notified that 1 of 2 blood cultures began growing gram + cocci in clusters. Staph aureus PCR was positive. MRSA PCR was positive. Clinically, Mr. Colby was unchanged - no new fevers, tachycardia, etc. Given his immunocompromised status, I did start him on vancomycin. The source of his bacteremia is unknown - UA appears clean from 12/23/20. CXR from 12/23/20 did show bibasilar opacities, however it was unclear if they represented atelectasis vs. infection. Follow cultures. Recommend day team consider expanding infectious work up.
[2020-12-24 07:24] LABS: Hematocrit (blood only) 30.8 % (42-52); Hemoglobin 10.2 g/dL (14.0-18.0); Mean Corpuscular Hemoglobin 32.1 pg (25-34); Mean Corpuscular Hgb Conc 33.1 g/dL (32-36); Mean Corpuscular Volume 96.9 fL (80-100); Platelet Count 102 K/uL (130-400); RDW Coefficient of Variation 15.5 % (11.5-14.5); RDW Standard Deviation 54.2 fL (36.4-46.3); Red Blood Count 3.18 M/uL (4.7-6.1); White Blood Count 3.32 K/uL (4.8-10.8)
[2020-12-24] MEDS: LOPERAMIDE HCL 2 MG CAP PO SCH ×2 (07:37→21:28)
[2020-12-24 07:38] LABS: Eosinophils # (auto) 0.21 K/uL (0-0.5); Eosinophils % (auto) 6.3 %; Lymphocytes # (auto) 0.59 K/uL (1.2-3.4); Lymphocytes % (auto) 17.8 %; Monocytes # (auto) 0.28 K/uL (0.11-0.59); Monocytes % (auto) 8.4 %; Neutrophils # (auto) 2.24 K/uL (1.4-6.5); Neutrophils % (auto) 67.5 %
[2020-12-24] MEDS: PANCREAZE (LIPASE 10,500U) CAP PO SCH ×3 (07:38→16:19)
[2020-12-24] MEDS: METOPROLOL TARTRATE 50 MG TAB PO SCH ×2 (07:38→21:28)
[2020-12-24] MEDS: FERROUS SULFATE 325 MG TAB PO SCH (07:38)
[2020-12-24] MEDS: dilTIAZem ER 120 MG CAPCR PO SCH (07:39)
[2020-12-24] MEDS: ISOSORBIDE MONO EXTENDED REL 30 MG TABCR PO SCH (07:39)
[2020-12-24] MEDS: SERTRALINE HCL 50 MG TABLET PO SCH (07:39)
[2020-12-24] MEDS: FOLIC ACID 400 MCG TAB PO SCH (07:39)
[2020-12-24] MEDS: TACROLIMUS 1 MG CAP PO SCH (07:40)
[2020-12-24] MEDS: FLUTICASONE/VILANTEROL 100/25MCG 14 PUFFS/INHALER INH SCH (07:40)
[2020-12-24] MEDS: FUROSEMIDE 40 MG in SYRINGE 0 ML IV SCH (07:40)
[2020-12-24 08:03] LABS: Albumin Level 2.8 gm/dl (3.4-5.0); BUN Creatinine Ratio 16.3 (10-20); Creatinine Clr Calc Pharmacy 44.5 ml/min; Est GFR (African American) 45.4; Est GFR (Non-African American) 39.2; Magnesium 1.7 mg/dl (1.8-2.4); Potassium 3.7 mmol/L (3.5-5.1)
[2020-12-24 08:05] LABS: Albumin Globulin Ratio 0.7 (0.9-2); Bilirubin,Total 1.1 mg/dl (0.2-1); Globulin 3.9 gm/dl (2.5-4.0); Total Protein 6.7 gm/dl (6.4-8.2)
[2020-12-24] MEDS ORDERED: ALBUTEROL HFA 8 GM INHALER INH PRN (08:31)
[2020-12-24] MEDS: MAGNESIUM SULFATE / D5W 1 GM/100 ML BAG IV SCH ×2 (09:31→11:12)
--- NOTE | 2020-12-24 10:35 | Pharmacy Report ---
Pharmacy Abx Dose Short Note - Date of Service December 24, 2020 - Assessment & Plan Assessment 75 year old M receiving vancomycin for treatment of bacteremia Day # 1 of antimicrobial therapy. Plan Vancomycin * Population kinetics suggest half-life of 14.7 hours with elimination constant of 0.047 hr-1 * vancomycin 1500 mg IV q18 hours * goal trough for bacteremia: 15-20 mcg/mL * trough prior to 1200 dose on 12/25/20 to ensure no excess accumulation (concern due to kidney dysfunction and body habitus) Pharmacy will continue to follow and will adjust dose/frequency as necessary. Thank you.
[2020-12-24] MEDS: ALBUTEROL 0.083% NEBU SOLN 3 ML VIAL INH SCH (10:58)
[2020-12-24] MEDS: ASPIRIN 81 MG ECTAB PO SCH (11:12)
[2020-12-24] MEDS: PANTOprazole 40 MG TAB PO SCH (11:13)
[2020-12-24] MEDS: PRAMIPEXOLE DIHYDROCHLO 0.5 MG TAB PO SCH ×2 (11:13→21:28)
--- NOTE | 2020-12-24 17:52 | Hospitalist Progress Note ---
Date of Service December 24, 2020 Assessment & Plan (1) Acute on chronic diastolic CHF (congestive heart failure): Presented with worsening SOB, weakness, falls Patient stopped taking his Lasix 1 week ago due to getting tired of urinating frequently. 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 (2) Acute respiratory failure with hypoxia: secondary to CHF as above now resolved (3) MRSA bacteremia: 1/2 sets BCxs positive for MRSA Has abrasions on legs from falls, blister on left third toe with some purulence in it -restarted Vanco -repeat BCxs place ID consult does have pacer and TKA Most likely needs IV abx for at least 2 weeks from time of sterile BCxs (4) HTN (hypertension): BPs controlled -continue dilt,metoprolol, isosorbide (5) CAD (coronary artery disease): no acute issues continue metoprolol, ASA (6) Liver transplanted: no acute issues continue Prograf (7) History of prostate cancer: no acute issues continue tamsulosin (8) GERD (gastroesophageal reflux disease): Continue pantoprazole 40 mg daily (9) Restless leg syndrome: Continue pramipexole (10) Anxiety: Continue alprazolam and sertraline xanax increased to home dose which has a noon time dose (11) Ulcer of toe of left foot: surface wound seen by wound care xrays neg for OM cannot have MRI foot due to noncompatible pacer, but ESR only 15 so not likely OM (12) CVA (cerebral vascular accident): history of such continue ASA (13) Gout: no acute issues (14) Anemia: likely of chronic disease hgb 10.2 continue FeSO4 -check Fe studies, B12, folate (15) Peripheral arterial disease: with bilat FINA, follows with Cardiology (16) Depression: cont sertraline (17) Cardiac pacemaker in situ: for ?[id number]-[id number] (18) CKD (chronic kidney disease) stage 3, GFR 30-59 ml/min: 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 hold lasix -Avoid nephrotoxins -renally dose meds when appropriate -follow BMP (19) Hypomagnesemia: replace with IV mag follow level in AM (20) Aortic stenosis: mild-mod as per outpt Cardio notes f/u with Cardio (21) Atrial fibrillation: permanent, paced not on AC due to multiple falls, high risk (22) DVT prophylaxis: add Lovenox SQ Dispo-continued stay Will need referral to [facility] for rehab as he will need IV abx Discussed care with daughter on phone Admission and Anticipated Discharge Date Admission Date: December 23, 2020 Subjective Pt more alert and conversive today but has trouble remembering words to say. Denies SOB and is off O2, denies CP. Is eating. Tele with paced rhythm, rate 70s Review of Systems Review of Systems: All systems reviewed & are unremarkable except as noted in HPI & below Physical Exam Constitutional: WD/WN, vitals as above Eyes: + anicteric sclerae Neck: trachea midline, no thyromegaly Respiratory: normal respiratory effort, lungs clear to auscultation Cardiovascular: Rate/Rhythm: regular rate and regular rhythm Heart Sounds: no murmur Extremities: + edema (trace pitting edema legs bilat) Chest (Breasts): Chest: normal inspection of chest Gastrointestinal (Abdomen): normal bowel sounds, soft, nontender, no hepato splenomegaly Musculoskeletal: Extremities: + extremities abnormal to inspection (left 2nd toe distal amputation), no cyanosis and no clubbing Skin: + lesion (left third toe with blood and pus-filled 0.5cm blister) and + wound (abrasion left knee); no erythema Neurologic: moves all extremities and awake; no focal motor deficits Psychiatric: Orientation: alert, oriented to person, oriented to place and cooperative Genitourinary: Johnson in place draining clear yellow urine Lymphatic: no lymphedema Results & Data Results & Data ([facility]) Vital Signs (Past 12 Hours) Vital Signs Temp Pulse Resp BP Pulse Ox 12/24/20 15:35 36.6 C 72 20 101/63 95 12/24/20 11:27 36.3 C L 70 18 107/68 93 12/24/20 10:59 65 18 92 12/24/20 08:06 36.8 C 67 18 96/60 L 92 Laboratory Results 12/24/20 12/24/20 12/24/20 Range/Units 09:02 09:02 06:14 WBC (4.8-10.8) K/uL RBC (4.7-6.1) M/uL Hgb (14.0-18.0) g/dL Hct (42-52) % MCV (80-100) fL MCH (25-34) pg MCHC (32-36) g/dL RDW Std Deviation (36.4-46.3) fL RDW Coeff of Jimena (11.5-14.5) % Plt Count (130-400) K/uL MPV (7.4-10.4) fL Immature Gran % (Auto) % Neut % (Auto) % Lymph % (Auto) % Edgar % (Auto) % Eos % (Auto) % Baso % (Auto) % Neut # (Auto) (1.4-6.5) K/uL Lymph # (Auto) (1.2-3.4) K/uL Edgar # (Auto) (0.11-0.59) K/uL Eos # (Auto) (0-0.5) K/uL Baso # (Auto) (0-0.2) K/uL Immature Gran # (Auto) (0.00-0.02) K/uL ESR 15 H (0-14) mm/hr Sodium 139 (136-145) mmol/L Potassium 3.7 (3.5-5.1) mmol/L Chloride 104 (98-107) mmol/L Carbon Dioxide 29 (21-32) mmol/L Anion Gap 6.0 (3-11) BUN 27 H (7-18) mg/dl Creatinine 1.66 H (0.6-1.4) mg/dl Est Cr Clr Drug Dosing 44.5 ml/min Est GFR ( Amer) 45.4 Est GFR (Non-Af Amer) 39.2 BUN/Creatinine Ratio 16.3 (10-20) Glucose 89 (70-99) mg/dl Calcium 8.0 L (8.5-10.1) mg/dl Magnesium 1.7 L (1.8-2.4) mg/dl Total Bilirubin 1.1 H D (0.2-1) mg/dl AST 15 (15-37) U/L ALT 13 (12-78) U/L Alkaline Phosphatase 69 (45-117) U/L C-Reactive Protein 4.95 H (0-0.29) mg/dl Total Protein 6.7 (6.4-8.2) gm/dl Albumin 2.8 L (3.4-5.0) gm/dl Globulin 3.9 (2.5-4.0) gm/dl Albumin/Globulin Ratio 0.7 L (0.9-2) Bld Cult Staph aureus PCR (Negative) Blood Culture MRSA PCR (Negative) 12/24/20 12/23/20 Range/Units 06:14 05:12 WBC 3.32 L (4.8-10.8) K/uL RBC 3.18 L (4.7-6.1) M/uL Hgb 10.2 L (14.0-18.0) g/dL Hct 30.8 L (42-52) % MCV 96.9 (80-100) fL MCH 32.1 (25-34) pg MCHC 33.1 (32-36) g/dL RDW Std Deviation 54.2 H (36.4-46.3) fL RDW Coeff of Jimena 15.5 H (11.5-14.5) % Plt Count 102 L (130-400) K/uL MPV 12.0 H (7.4-10.4) fL Immature Gran % (Auto) 0.0 % Neut % (Auto) 67.5 % Lymph % (Auto) 17.8 % Edgar % (Auto) 8.4 % Eos % (Auto) 6.3 % Baso % (Auto) 0.0 % Neut # (Auto) 2.24 (1.4-6.5) K/uL Lymph # (Auto) 0.59 L (1.2-3.4) K/uL Edgar # (Auto) 0.28 (0.11-0.59) K/uL Eos # (Auto) 0.21 (0-0.5) K/uL Baso # (Auto) 0.00 (0-0.2) K/uL Immature Gran # (Auto) 0.00 (0.00-0.02) K/uL ESR (0-14) mm/hr Sodium (136-145) mmol/L Potassium (3.5-5.1) mmol/L Chloride (98-107) mmol/L Carbon Dioxide (21-32) mmol/L Anion Gap (3-11) BUN (7-18) mg/dl Creatinine (0.6-1.4) mg/dl Est Cr Clr Drug Dosing ml/min Est GFR ( Amer) Est GFR (Non-Af Amer) BUN/Creatinine Ratio (10-20) Glucose (70-99) mg/dl Calcium (8.5-10.1) mg/dl Magnesium (1.8-2.4) mg/dl Total Bilirubin (0.2-1) mg/dl AST (15-37) U/L ALT (12-78) U/L Alkaline Phosphatase (45-117) U/L C-Reactive Protein (0-0.29) mg/dl Total Protein (6.4-8.2) gm/dl Albumin (3.4-5.0) gm/dl Globulin (2.5-4.0) gm/dl Albumin/Globulin Ratio (0.9-2) Bld Cult Staph aureus PCR Positive A (Negative) Blood Culture MRSA PCR Positive A* (Negative) PG Care Time/CCT Total # of Minutes Spent Total Time Spent with Patient: Total time spent is greater than 50% in coordination of care (as documented) at patient's floor/unit and/or counseling patient: Coding Level of Care Code 80738 Subseq Hosp Care Lvl 3 Diagnoses Acute on chronic diastolic CHF (congestive heart failure) I50.33 Acute respiratory failure with hypoxia J96.01 MRSA bacteremia R78.81; B95.62 HTN (hypertension) I10 CAD (coronary artery disease) I25.10 Liver transplanted Z94.4 History of prostate cancer Z85.46 GERD (gastroesophageal reflux disease) K21.9 Restless leg syndrome G25.81 Anxiety F41.9 Ulcer of toe of left foot L97.529 CVA (cerebral vascular accident) I63.9 Gout M10.9 Chronicity: acute Gout etiology: unspecified cause Gout site: knee Laterality: right Anemia D64.9 Anemia type: unspecified type Peripheral arterial disease I73.9 Depression F32.9 Cardiac pacemaker in situ Z95.0 CKD (chronic kidney disease) stage 3, GFR 30-59 ml/min N18.30 Hypomagnesemia E83.42 Aortic stenosis I35.0 Atrial fibrillation I48.91 DVT prophylaxis Z29.9 (1) Gout Chronicity: acute Gout etiology: unspecified cause Gout site: knee Laterality: right Qualified Code(s): M10.9 - Gout, unspecified (2) Anemia Anemia type: unspecified type Qualified Code(s): D64.9 - Anemia, unspecified
[2020-12-24] MEDS ORDERED: VANCOMYCIN HCL 1,250 MG in SODIUM CHLORIDE 0.9% 250 ML IV SCH (18:00)
[2020-12-24] MEDS: VANCOMYCIN HCL 1,500 MG in SODIUM CHLORIDE 0.9% 500 ML IV SCH (18:39)
[2020-12-24] MEDS: MAGNESIUM OXIDE 400 MG TAB PO SCH (21:28)
[2020-12-24] MEDS: TACROLIMUS 0.5 MG CAP PO SCH (21:28)
[2020-12-24] MEDS: TAMSULOSIN HCL 0.4 MG CAP PO SCH (21:28)
[2020-12-25] MEDS: ENOXAPARIN INJ 40 MG/0.4 ML SYR SQ SCH ×2 (00:14→20:50)
[2020-12-25 06:41] LABS: Eosinophils # (auto) 0.35 K/uL (0-0.5); Eosinophils % (auto) 9.2 %; Hematocrit (blood only) 31.8 % (42-52); Hemoglobin 10.8 g/dL (14.0-18.0); Lymphocytes # (auto) 0.57 K/uL (1.2-3.4); Mean Corpuscular Hemoglobin 32.3 pg (25-34); Mean Corpuscular Volume 95.2 fL (80-100); Mean Platelet Volume 11.7 fL (7.4-10.4); Monocytes # (auto) 0.26 K/uL (0.11-0.59); Monocytes % (auto) 6.8 %; Neutrophils # (auto) 2.63 K/uL (1.4-6.5); Platelet Count 107 K/uL (130-400); RDW Coefficient of Variation 15.3 % (11.5-14.5); Red Blood Count 3.34 M/uL (4.7-6.1); White Blood Count 3.81 K/uL (4.8-10.8)
[2020-12-25 07:10] LABS: Est GFR (African American) 48.9; Est GFR (Non-African American) 42.2; Potassium 3.7 mmol/L (3.5-5.1)
[2020-12-25 07:11] LABS: Albumin Level 2.7 gm/dl (3.4-5.0); BUN Creatinine Ratio 18.5 (10-20); Calcium 7.9 mg/dl (8.5-10.1); Creatinine Clr Calc Pharmacy 43.5 ml/min; Magnesium 2.1 mg/dl (1.8-2.4)
[2020-12-25 07:14] LABS: Albumin Globulin Ratio 0.7 (0.9-2); Bilirubin,Total 0.9 mg/dl (0.2-1); Ferritin 166.4 ng/ml (8-388); Globulin 3.9 gm/dl (2.5-4.0); Total Protein 6.6 gm/dl (6.4-8.2)
[2020-12-25] MEDS: ALBUTEROL 0.083% NEBU SOLN 3 ML VIAL INH SCH (07:15)
[2020-12-25 07:34] LABS: Ovalocytes 1+; Tear Drop Cells 1+
[2020-12-25 07:44] LABS: Folate (Folic Acid) > 20.00 ng/ml (>5.38); Vitamin B12 361 pg/ml (193-986)
[2020-12-25] MEDS: PANCREAZE (LIPASE 10,500U) CAP PO SCH ×3 (08:29→17:45)
[2020-12-25] MEDS: ALPRAZolam 0.5 MG TABLET PO SCH ×3 (08:30→20:50)
[2020-12-25] MEDS: FLUTICASONE/VILANTEROL 100/25MCG 14 PUFFS/INHALER INH SCH (08:30)
[2020-12-25] MEDS: SERTRALINE HCL 50 MG TABLET PO SCH (08:35)
[2020-12-25] MEDS: TACROLIMUS 1 MG CAP PO SCH (08:35)
[2020-12-25] MEDS: METOPROLOL TARTRATE 50 MG TAB PO SCH ×2 (08:35→20:50)
[2020-12-25] MEDS: FOLIC ACID 400 MCG TAB PO SCH (08:35)
[2020-12-25] MEDS: ISOSORBIDE MONO EXTENDED REL 30 MG TABCR PO SCH (08:35)
[2020-12-25] MEDS: FERROUS SULFATE 325 MG TAB PO SCH ×2 (08:35→20:49)
[2020-12-25] MEDS: LOPERAMIDE HCL 2 MG CAP PO SCH ×2 (08:36→20:50)
[2020-12-25] MEDS: dilTIAZem ER 120 MG CAPCR PO SCH (08:36)
[2020-12-25] MEDS: PRAMIPEXOLE DIHYDROCHLO 0.5 MG TAB PO SCH ×2 (10:21→20:50)
[2020-12-25] MEDS: CYANOCOBALAMIN 1000 MCG/ML VIAL IM SCH (10:21)
[2020-12-25] MEDS: FUROSEMIDE 40 MG TAB PO SCH (10:21)
[2020-12-25] MEDS: PANTOprazole 40 MG TAB PO SCH (10:22)
[2020-12-25] MEDS: ASPIRIN 81 MG ECTAB PO SCH (10:22)
--- NOTE | 2020-12-25 11:26 | Hospitalist Progress Note ---
Date of Service December 25, 2020 Assessment & Plan (1) Acute on chronic diastolic CHF (congestive heart failure): Presented with worsening SOB, weakness, falls Patient stopped taking his Lasix 1 week ago due to getting tired of urinating frequently. 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 Maddox in [place], due for annual visit in Dec (2) Acute respiratory failure with hypoxia: secondary to CHF as above now resolved (3) MRSA bacteremia: 1/2 sets BCxs positive for MRSA Has abrasions on legs from falls, blister on left third toe with some purulence in it -restarted Vanco 12/24 -repeat BCxs NGTD place ID consult does have pacer and TKA Most likely needs IV abx for at least 2 weeks from time of sterile BCxs-awaiting ID recs Consult wound care for care of blister on toe (4) HTN (hypertension): BPs controlled -continue dilt,metoprolol, isosorbide (5) CAD (coronary artery disease): no acute issues, nonobstructive mod dz on cath 2013 continue metoprolol, ASA (6) Liver transplanted: no acute issues continue Prograf (7) History of prostate cancer: no acute issues continue tamsulosin (8) GERD (gastroesophageal reflux disease): Continue pantoprazole 40 mg daily (9) Restless leg syndrome: Continue pramipexole (10) Anxiety: Continue alprazolam and sertraline xanax increased to home dose which has a noon time dose (11) Ulcer of toe of left foot: surface wound on grerat toe, blister on left third toe wound care xrays neg for OM cannot have MRI foot due to noncompatible pacer, but ESR only 15 so not likely OM (12) CVA (cerebral vascular accident): history of such continue ASA (13) Gout: no acute issues (14) Anemia: likely of chronic disease hgb 10.2 continue FeSO4 Fe studies show transferrin sat 10%, mixed Fe def and chronic dz B12, folate normal except B12 low normal -give IM B12 x 3 days then po increase FeSO4 to bid (15) Peripheral arterial disease: with bilat FINA, follows with Cardiology continue ASA, unclear why not on statin-will look through cardiology records (16) Depression: cont sertraline (17) Cardiac pacemaker in situ: for ?[id number]-eade review Cardio records (18) CKD (chronic kidney disease) stage 3, GFR 30-59 ml/min: 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 and now improved to 1.56 ok to restart home po lasix 40 -Avoid nephrotoxins -renally dose meds when appropriate -follow BMP (19) Hypomagnesemia: replaced with IV mag and resolved (20) Aortic stenosis: mild-mod as per outpt Cardio notes f/u with Cardio (21) Atrial fibrillation: permanent, paced not on AC due to multiple falls, high risk (22) DVT prophylaxis: Lovenox SQ Dispo-continued stay, transfer to med/surg Will need referral to [facility] for rehab as he will need IV abx Admission and Anticipated Discharge Date Admission Date: December 23, 2020 Subjective No complaints, denies CP, SOB, no nausea or abd pain. No foot pain. Is frustrated but accepting of going to rehab. Had ID virtual consult this AM Review of Systems Review of Systems: All systems reviewed & are unremarkable except as noted in HPI & below Physical Exam Constitutional: WD/WN, vitals as above Eyes: + anicteric sclerae Neck: trachea midline, no thyromegaly Respiratory: normal respiratory effort, lungs clear to auscultation Cardiovascular: RRR, no murmur, no edema Chest (Breasts): Chest: normal inspection of chest Gastrointestinal (Abdomen): normal bowel sounds, soft, nontender, no hepatosplenomegaly Musculoskeletal: Extremities: + extremities abnormal to inspection (left 2nd toe distal amputation), no cyanosis and no clubbing Skin: + lesion (left third toe with blood and pus-filled 0.5cm blister) and + wound (abrasion left knee); no erythema Neurologic: moves all extremities and awake; no focal motor deficits Psychiatric: Orientation: alert, oriented to person, oriented to place and cooperative Lymphatic: no lymphedema Results & Data Results & Data ([facility]) Vital Signs (Past 12 Hours) Vital Signs Temp Pulse Pulse Resp BP Pulse Ox 12/25/20 08:34 36.3 C L 70 20 122/75 94 12/25/20 07:17 70 16 94 12/25/20 05:40 36.5 C 70 20 120/75 92 12/24/20 23:37 36.9 C 70 18 116/73 94 Laboratory Results 12/25/20 12/25/20 12/25/20 Range/Units 06:05 06:05 06:05 WBC 3.81 L (4.8-10.8) K/uL RBC 3.34 L (4.7-6.1) M/uL Hgb 10.8 L (14.0-18.0) g/dL Hct 31.8 L (42-52) % MCV 95.2 (80-100) fL MCH 32.3 (25-34) pg MCHC 34.0 (32-36) g/dL RDW Std Deviation 53.0 H (36.4-46.3) fL RDW Coeff of Jimena 15.3 H (11.5-14.5) % Plt Count 107 L (130-400) K/uL MPV 11.7 H (7.4-10.4) fL Immature Gran % (Auto) 0.0 % Neut % (Auto) 69.0 % Lymph % (Auto) 15.0 % [place] % (Auto) 6.8 % Eos % (Auto) 9.2 % Baso % (Auto) 0.0 % Neut # (Auto) 2.63 (1.4-6.5) K/uL Lymph # (Auto) 0.57 L (1.2-3.4) K/uL [place] # (Auto) 0.26 (0.11-0.59) K/uL Eos # (Auto) 0.35 (0-0.5) K/uL Baso # (Auto) 0.00 (0-0.2) K/uL Immature Gran # (Auto) 0.00 (0.00-0.02) K/uL Tear Drop Cells 1+ Ovalocytes 1+ Sodium 139 (136-145) mmol/L Potassium 3.7 (3.5-5.1) mmol/L Chloride 106 (98-107) mmol/L Carbon Dioxide 28 (21-32) mmol/L Anion Gap 5.0 (3-11) BUN 29 H (7-18) mg/dl Creatinine 1.56 H (0.6-1.4) mg/dl Est Cr Clr Drug Dosing 43.5 ml/min Est GFR ( Amer) 48.9 Est GFR (Non-Af Amer) 42.2 BUN/Creatinine Ratio 18.5 (10-20) Glucose 90 (70-99) mg/dl Calcium 7.9 L (8.5-10.1) mg/dl Magnesium 2.1 (1.8-2.4) mg/dl Iron 27 L (35-175) mcg/dl TIBC 240 L (250-450) mcg/dl Transferrin 190 L (200-360) mg/dl Transferrin % Sat 10 L (20-50) % Ferritin 166.4 (8-388) ng/ml Total Bilirubin 0.9 (0.2-1) mg/dl AST 15 (15-37) U/L ALT 11 L (12-78) U/L Alkaline Phosphatase 77 (45-117) U/L Total Protein 6.6 (6.4-8.2) gm/dl Albumin 2.7 L (3.4-5.0) gm/dl Globulin 3.9 (2.5-4.0) gm/dl Albumin/Globulin Ratio 0.7 L (0.9-2) Vitamin B12 361 (193-986) pg/ml Folate > 20.00 (>5.38) ng/ml BCxs MRSA Repeat BCxs NGTD PG Care Time/CCT Total # of Minutes Spent Total Time Spent with Patient: Total time spent is greater than 50% in coordination of care (as documented) at patient's floor/unit and/or counseling patient: Coding Level of Care Code 22095 Subseq Hosp Care Lvl 3 Diagnoses Acute on chronic diastolic CHF (congestive heart failure) I50.33 Acute respiratory failure with hypoxia J96.01 MRSA bacteremia R78.81; B95.62 HTN (hypertension) I10 CAD (coronary artery disease) I25.10 Liver transplanted Z94.4 History of prostate cancer Z85.46 GERD (gastroesophageal reflux disease) K21.9 Restless leg syndrome G25.81 Anxiety F41.9 Ulcer of toe of left foot L97.529 CVA (cerebral vascular accident) I63.9 Gout M10.9 Chronicity: acute Gout etiology: unspecified cause Gout site: knee Laterality: right Anemia D64.9 Anemia type: unspecified type Peripheral arterial disease I73.9 Depression F32.9 Cardiac pacemaker in situ Z95.0 CKD (chronic kidney disease) stage 3, GFR 30-59 ml/min N18.30 Hypomagnesemia E83.42 Aortic stenosis I35.0 Atrial fibrillation I48.91 DVT prophylaxis Z29.9 (1) Gout Chronicity: acute Gout etiology: unspecified cause Gout site: knee Laterality: right Qualified Code(s): M10.9 - Gout, unspecified (2) Anemia Anemia type: unspecified type Qualified Code(s): D64.9 - Anemia, unspecified
[2020-12-25] MEDS ORDERED: VANCOMYCIN TROUGH ONE (11:30)
[2020-12-25] MEDS: VANCOMYCIN HCL 1,500 MG in SODIUM CHLORIDE 0.9% 500 ML IV SCH (11:58)
--- NOTE | 2020-12-25 13:22 | Pharmacy Report ---
Pharmacy Abx Dose Short Note - Date of Service December 25, 2020 - Assessment & Plan Assessment 75 year old M receiving vancomycin for treatment of MRSA bacteremia Day # 2 of antimicrobial therapy. Plan Vancomycin * Trough level of 19.4 mcg/mL is therapeutic. * Change to 1500 mg IV every 24 hours -- expect that patient will slightly accumulate due to body habitus. This level is not steady state but do expect this to increase. * Goal trough level for bacteremia : 15 to 20 mcg/mL * Trough ordered for: 12/27/20 Pharmacy will continue to follow and will adjust dose/frequency as necessary. Thank you.
[2020-12-25] MEDS: TAMSULOSIN HCL 0.4 MG CAP PO SCH (20:49)
[2020-12-25] MEDS: MAGNESIUM OXIDE 400 MG TAB PO SCH (20:50)
[2020-12-25] MEDS: TACROLIMUS 0.5 MG CAP PO SCH (20:50)
[2020-12-25] MEDS: oxyCODONE HCL IR 5 MG TAB (IMMEDIATE RELEASE) PO PRN (23:59)
[2020-12-26 06:35] LABS: Basophils # (auto) 0.01 K/uL (0-0.2); Basophils % (auto) 0.3 %; Eosinophils % (auto) 12.9 %; Hematocrit (blood only) 33.8 % (42-52); Hemoglobin 11.2 g/dL (14.0-18.0); Immature Granulocytes # (auto) 0.01 K/uL (0.00-0.02); Immature Granulocytes % (auto) 0.3 %; Lymphocytes % (auto) 16.1 %; Mean Corpuscular Hemoglobin 31.6 pg (25-34); Mean Corpuscular Hgb Conc 33.1 g/dL (32-36); Mean Corpuscular Volume 95.5 fL (80-100); Mean Platelet Volume 11.3 fL (7.4-10.4); Monocytes # (auto) 0.24 K/uL (0.11-0.59); Monocytes % (auto) 7.7 %; Neutrophils # (auto) 1.94 K/uL (1.4-6.5); Neutrophils % (auto) 62.7 %; Platelet Count 114 K/uL (130-400); RDW Coefficient of Variation 15.1 % (11.5-14.5); RDW Standard Deviation 52.5 fL (36.4-46.3); Red Blood Count 3.54 M/uL (4.7-6.1)
[2020-12-26 06:59] LABS: Ovalocytes 1+
[2020-12-26 07:09] LABS: Albumin Globulin Ratio 0.7 (0.9-2); Albumin Level 2.9 gm/dl (3.4-5.0); BUN Creatinine Ratio 17.4 (10-20); Bilirubin,Total 0.7 mg/dl (0.2-1); Calcium 8.5 mg/dl (8.5-10.1); Creatinine Clr Calc Pharmacy 48.2 ml/min; Est GFR (African American) 49.3; Est GFR (Non-African American) 42.5; Globulin 4.2 gm/dl (2.5-4.0); Magnesium 1.9 mg/dl (1.8-2.4); Potassium 3.7 mmol/L (3.5-5.1); Total Protein 7.1 gm/dl (6.4-8.2)
[2020-12-26] MEDS: ALPRAZolam 0.5 MG TABLET PO SCH ×3 (08:07→14:40)
[2020-12-26] MEDS: PANCREAZE (LIPASE 10,500U) CAP PO SCH ×2 (08:09→11:45)
[2020-12-26] MEDS: FLUTICASONE/VILANTEROL 100/25MCG 14 PUFFS/INHALER INH SCH (08:09)
[2020-12-26] MEDS: FERROUS SULFATE 325 MG TAB PO SCH (08:10)
[2020-12-26] MEDS: ISOSORBIDE MONO EXTENDED REL 30 MG TABCR PO SCH (08:11)
[2020-12-26] MEDS: FOLIC ACID 400 MCG TAB PO SCH (08:11)
[2020-12-26] MEDS: LOPERAMIDE HCL 2 MG CAP PO SCH (08:12)
[2020-12-26] MEDS: FUROSEMIDE 40 MG TAB PO SCH (08:12)
[2020-12-26] MEDS: TACROLIMUS 1 MG CAP PO SCH (08:13)
[2020-12-26] MEDS: METOPROLOL TARTRATE 50 MG TAB PO SCH (08:13)
[2020-12-26] MEDS: CYANOCOBALAMIN 1000 MCG/ML VIAL IM SCH (08:14)
[2020-12-26] MEDS: SERTRALINE HCL 50 MG TABLET PO SCH (08:14)
[2020-12-26] MEDS: dilTIAZem ER 120 MG CAPCR PO SCH (08:14)
[2020-12-26] MEDS: ALBUTEROL 0.083% NEBU SOLN 3 ML VIAL INH SCH (08:20)
[2020-12-26] MEDS: ASPIRIN 81 MG ECTAB PO SCH (11:44)
[2020-12-26] MEDS: PANTOprazole 40 MG TAB PO SCH (11:45)
[2020-12-26] MEDS: PRAMIPEXOLE DIHYDROCHLO 0.5 MG TAB PO SCH (11:45)
[2020-12-26] MEDS ORDERED: VANCOMYCIN HCL 1,500 MG in SODIUM CHLORIDE 0.9% 500 ML IV SCH (12:00)
--- NOTE | 2020-12-26 12:25 | XCELERA ---
[id number] \\[id number]
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
--- NOTE | 2020-12-26 14:47 | Discharge Summary ---
Date of Service December 26, 2020 Admission HPI Per Admitting Provider The patient is a 75-year-old male with a past medical history including chronic diastolic CHF, prostate cancer, left foot toe osteomyelitis ulcer, acute kidney injury, ambulatory dysfunction, UTI, diarrhea, thrush, hypertension, arrhythmia as indication for cardiac pacer placement, CVA, immunocompromised due to medications, gout, anemia, liver transplant and CAD. Patient presents as noted above. Principal Diagnosis Acute on chronic diastolic CHF, MRSA Bacteremia Discharge Exam Constitutional WD/WN, vitals as above Eyes + anicteric sclerae Neck trachea midline, no thyromegaly Respiratory normal respiratory effort, lungs clear to auscultation Cardiovascular RRR, no murmur, no edema Rate/Rhythm: regular rate and regular rhythm Heart Sounds: no murmur Extremities: + edema (trace pitting edema legs bilat) Chest (Breasts) Chest: normal inspection of chest Gastrointestinal (Abdomen) normal bowel sounds, soft, nontender, no hepatosplenomegaly Musculoskeletal Extremities: + extremities abnormal to inspection (left 2nd toe distal amputation), no cyanosis and no clubbing Skin + lesion (left third toe with blood and pus-filled 0.5cm blister) and + wound (abrasion left knee); no erythema Neurologic moves all extremities and awake; no focal motor deficits Psychiatric Orientation: alert, oriented to person, oriented to place and cooperative Lymphatic no lymphedema Discharge Data Allergies Allergy/AdvReac Type Severity Reaction Status Date / Time acetaminophen Allergy Unknown Unknown. Verified 12/23/20 05:37 gabapentin AdvReac Intermediate Chest Pain Verified 12/23/20 05:37 lactose AdvReac Mild Gastrointestinal Verified 12/23/20 05:37 Upset morphine AdvReac Mild FELT LOOPY Verified 12/23/20 05:37 Consultations 12/23/20 05:56 ED Decision to Admit Stat 12/23/20 07:59 Consult Case Management - Discharge Planning Routine 12/24/20 22:48 Consult Infectious Diseases Routine 12/25/20 09:38 [facility] [place] Routine Ordered Studies 12/23/20 05:05 CT head/brain wo con Urgent CXR x 2 Toe xray Knee xray Hospital Course (1) Acute on chronic diastolic CHF (congestive heart failure): Presented with worsening SOB, weakness, falls Patient stopped taking his Lasix 1 week ago due to getting tired of urinating frequently. Placed on Lasix 40 mg IV twice daily and had good diuresis, now weaned off O2 and no SOB, net neg 3.4L, weight is down -continue BP control -Continue home lasix 40mg po daily Does follow with Dr. Maddox in [place], due for annual visit in Dec (2) Acute respiratory failure with hypoxia: secondary to CHF as above now resolved (3) MRSA bacteremia: 1/2 sets BCxs positive for MRSA Has abrasions on legs from falls, blood blister on left third toe -restarted Vanco 12/24 -repeat BCxs on 12/24 remain NGTD does have pacer and TKA Echocardiogram without vegetation Appreciate infectious disease consultation-needs IV abx for 2 weeks from time of sterile BCxs-last dose will be on 01/07/2021 Consult wound care for care of blister on toe (4) HTN (hypertension): BPs controlled -continue dilt,metoprolol, isosorbide (5) CAD (coronary artery disease): no acute issues, nonobstructive mod dz on cath 2013 continue metoprolol, ASA (6) Liver transplanted: no acute issues continue Prograf (7) History of prostate cancer: no acute issues continue tamsulosin (8) GERD (gastroesophageal reflux disease): Continue pantoprazole 40 mg daily (9) Restless leg syndrome: Continue pramipexole (10) Anxiety: Continue alprazolam and sertraline xanax increased to home dose which has a noon time dose (11) Ulcer of toe of left foot: surface wound on great toe, blister on left third toe wound care xrays neg for OM cannot have MRI foot due to noncompatible pacer, but ESR only 15 so not likely OM (12) CVA (cerebral vascular accident): history of such continue ASA (13) Gout: no acute issues (14) Anemia: likely of chronic disease hgb 10.2 continue FeSO4 Fe studies show transferrin sat 10%, mixed Fe def and chronic dz B12, folate normal except B12 low normal -give IM B12 x 3 days then po B12 1000 mcg daily increase FeSO4 to bid (15) Peripheral arterial disease: with bilat FINA, follows with Cardiology continue ASA, unclear why not on statin (16) Depression: cont sertraline (17) Cardiac pacemaker in situ: for ?tachy-kvng (18) CKD (chronic kidney disease) stage 3, GFR 30-59 ml/min: 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 up to 1.6 after diuresis and now improved to 1.5 -Continue home po lasix 40 -Avoid nephrotoxins -renally dose meds when appropriate -follow BMP as an outpatient (19) Hypomagnesemia: replaced with IV mag and resolved (20) Aortic stenosis: mild-mod as per outpt Cardio notes f/u with Cardio (21) Atrial fibrillation: permanent, paced not on AC due to multiple falls, high risk (22) DVT prophylaxis: Lovenox SQ Dispo-medically stable for discharge to [facility] for rehab as he will need IV abx and rehab for falls Total Time Total Time Spent Total Time Spent (In Minutes): 35 minutes Total Time Includes: Examination of the Patient, Discharge Planning and Medication Reconciliation Discharge Plan Discharge Items Patient Disposition: Transfer Residential Fac Reason For Visit: CHF EXACERBATION Discharge Diagnosis: MRSA bacteremia, acute on chronic diastolic CHF, acute respiratory failure with hypoxia-resolved Condition on Discharge: Fair Activity: As commented below Lifting: Gradually increase as tolerated Bathing Comment: Keep PICC line dry Exercise/Sports: Gradually increase as tolerated Weightbearing: Full weightbearing Non-emergency contact: Primary Care Provider Call non-emergency contact if: you have any medication questions Follow-up/Referrals: Milton Romeo MD [Primary Care Provider] - (Follow-up within 1 to 2 weeks) Diet: Heart Healthy and Low Sodium (2gm) Fluids: 1800ml (7 cups) Addtl Attending Provider Instructions: For the MRSA bacteremia: Please continue IV vancomycin 1500 mg IV every 24 hours with last dose on 01/07/2021. Please check Vanco trough before next dose on 12/27 and check CBC, CMP, ESR, and CRP once weekly while on antibiotics. For the acute on chronic systolic CHF, he was diuresed and will return on home Lasix 40 mg once daily. Please check daily weights and follow low-sodium diet and fluid restriction of 1800 mL/day. It is noted that he has a long history of multiple falls and is on high doses of benzodiazepines as well as opioids. Please consider tapering down on benzodiazepine dosing and opioids as an outpatient to avoid falls in the elderly. Pending Studies at Discharge: Yes Stand-Alone Forms: My [facility] Skilled Items Patient informed of condition?: Yes DNR: No Discharge Level of Care: Skilled Communicable Disease: Yes Discharge Prognosis: Improving Lines: PICC Urinary Catheter: No Medications and DC Order Prescriptions: New furosemide 40 mg Tablet 40 mg PO QAM Qty: 30 RF: 0 vancomycin 1,000 mg recon soln 1,500 mg IV .q24 12 Days Qty: 12 RF: 0 alprazolam 1 mg tablet 0.5 mg PO QDL Qty: 3 RF: 0 alprazolam [Xanax] 1 mg tablet 1 mg PO BID Qty: 6 RF: 0 cyanocobalamin (vitamin B-12) 1,000 mcg capsule 1,000 mcg PO DAILY Qty: 30 RF: 0 ferrous sulfate 325 mg (65 mg iron) Tablet 325 mg PO BID Qty: 60 RF: 0 Continued pramipexole [Mirapex] 1 mg tablet 2 mg PO QPM RF: 0 isosorbide mononitrate 30 mg tablet extended release 24 hr 30 mg PO QAM RF: 0 sertraline [Zoloft] 100 mg tablet 150 mg PO DAILY RF: 0 tamsulosin [Flomax] 0.4 mg capsule 0.4 mg PO QPM RF: 0 diltiazem HCl [Tiazac] 120 mg capsule,extended release 24 hr 120 mg PO QAM RF: 0 folic acid 400 mcg Tablet 0.4 mg PO DAILY RF: 0 Breo Ellipta 100-25 mcg/dose Blister With Device 1 inh INHALATION DAILY RF: 0 Creon 12,000-38,000 -60,000 unit capsule,delayed release(DR/EC) 1 cap PO AC Qty: 1 RF: 0 albuterol sulfate 0.63 mg/3 mL Solution For Nebulization 0.63 mg INHALATION QAM RF: 0 lutein 20 mg Capsule 20 mg PO QAM RF: 0 pramipexole [Mirapex] 1 mg tablet 1 mg PO QDL RF: 0 aspirin [Aspirin Low Dose] 81 mg Tablet,Delayed Release (Dr/Ec) 81 mg PO QDL RF: 0 pantoprazole [Protonix] 40 mg tablet,delayed release (DR/EC) 40 mg PO QDL RF: 0 metoprolol tartrate 50 mg tablet 50 mg PO BID RF: 0 magnesium oxide 400 mg magnesium Tablet 400 mg PO HS RF: 0 albuterol sulfate 90 mcg/actuation Hfa Aerosol Inhaler 2 puff INHALATION QID PRN (Reason: Shortness Of Breath Or Wheezing) RF: 0 loperamide 2 mg Tablet 2 mg PO BID RF: 0 Prograf 1 mg Granules In Packet 1 mg PO QAM RF: 0 tacrolimus [Prograf] 0.5 mg Capsule 0.5 mg PO QPM RF: 0 oxycodone 5 mg capsule 5 mg PO Q6H PRN (Reason: pain) Qty: 6 RF: 0 Discharge Orders: Discharge Order (Routine); Ordered 12/26/20 Ordered By: Reba Roque/Other Patient Handouts: Coping with Heart Failure, Heart Failure Admission Data Admit Date/Time: 12/23/20 06:27 Attending Provider: Reba Luong Admit Provider: Choco Cleveland Primary Care Provider: Milton Romeo Other Providers: Florina Johns ; Choco Cleveland ; Bob Crouch ; Tomasa Carr ; Manolo Diehl I. ; Alex Hussein II ; Margie Staples ; Michael Pardo ; Mariann Womack Coding Level of Care Code D/C Day Management >30 mins Diagnoses Acute on chronic diastolic CHF (congestive heart failure) I50.33 Acute respiratory failure with hypoxia J96.01 MRSA bacteremia R78.81; B95.62 HTN (hypertension) I10 CAD (coronary artery disease) I25.10 Liver transplanted Z94.4 History of prostate cancer Z85.46 GERD (gastroesophageal reflux disease) K21.9 Restless leg syndrome G25.81 Anxiety F41.9 Ulcer of toe of left foot L97.529 CVA (cerebral vascular accident) I63.9 Gout M10.9 Chronicity: acute Gout etiology: unspecified cause Gout site: knee Laterality: right Anemia D64.9 Anemia type: unspecified type Peripheral arterial disease I73.9 Depression F32.9 Cardiac pacemaker in situ Z95.0 CKD (chronic kidney disease) stage 3, GFR 30-59 ml/min N18.30 Hypomagnesemia E83.42 Aortic stenosis I35.0 Atrial fibrillation I48.91 DVT prophylaxis Z29.9
--- NOTE | 2020-12-26 14:57 | XRay Report ---
XR chest 1V portable HISTORY: right PICC tip placement, paced rhythm COMPARISON: Chest 12/23/2020. FINDINGS: No pneumothorax. Small right pleural effusion and bibasilar densities persist. Pulmonary va scular congestion has resolved. The heart remains enlarged. The left-sided pacemaker. Interval placem ent of a right PICC. The tip is obscured by the pacemaker wires but likely terminates at the SVC. IMPRESSION: Interval placement of a right PICC. The tip is obscured by the pacemaker wires but likely terminates at the SVC. ACT 112: Negative or not required by law. Electronically signed by: Flavio Andrews M.D. 12/26/2020 2:56 PM
[2020-12-27] MEDS ORDERED: VANCOMYCIN TROUGH ONE (11:30)
--- NOTE | 2021-01-08 14:03 | Coding Query ---
CODING QUERY To promote full compliance with coding requirements relating to patient care, provider participation is requested in all cases of certified professional coder uncertainty. Please assist us with the question(s) below: Coding Question(s): There is documentation in the record and on Discharge Summary of MRSA Bacteremia. The Discharge Summary documents, under Hospital Course, "MRSA bacteremia: 1/2 sets BCxs positive for MRSA Has abrasions on legs from falls, blood blister on left third toe -restarted Vanco 12/24 -repeat BCxs on 12/24 remain NGTD does have pacer and TKA Echocardiogram without vegetation Appreciate infectious disease consultation-needs IV abx for 2 weeks from time of sterile BCxs-last dose will be on 01/07/2021 Consult wound care for care of blister on toe". The ER H&P had documented Cellulitis of the left leg and the H&P Bridge Note documented, "Left leg has no evidence of cellulitis as noted in ER, just a few scabs, no erythema or edema, no warmth to the touch. No further abx needed", and the Infectious Disease Consult documented, "MRSA bacteremia. Only 1/4 bottles + from admission. It theory, S aureus can also be a contaminant, but this is an elderly pt, with cardiac and orthopedic prosthetic material and high risk medical conditions. Potential skin sources present.". Please clarify below, in your clinical opinion, the source of the MRSA Bacteremia. ( ) Unknown etiology of the MRSA Bacteremia ( ) Left Leg Cellulitis is the likely cause of the MRSA Bacteremia ( ) Left TKA infection is the likely cause of the MRSA Bacteremia ( ) Cardiac Pacemaker infection is the likely cause of the MRSA Bacteremia ( x ) Other Skin Infection, unspecified is the likely cause of the MRSA Bacteremia ( ) Other Infection is the likely cause of the MRSA Bacteremia. Please Specify Physician's Response(s): Thank you Kirstie Foster Principal Diagnosis: "that condition established after study, to be chiefly responsible for occasioning the admission of the patient to the hospital for care." Co-Existing Principal Diagnosis: "when two or more diagnoses equally meet the criteria for principal diagnosis as determined by the circumstances of admission, diagnostic work up, and/or therapy provided, and the Alphabetic Index, Tabular List, or another coding guideline does not provide sequencing direction, any one of the diagnoses may be sequenced first." "When the physician has documented what appears to be a current diagnosis in the body of the record, but has not included the diagnosis in the final diagnostic statement, the physician should be asked whether the diagnosis should be added." (Source Coding Clinic 2 QTR90. p3-4) SUL[place]AN
== END 2020-12-26 17:10 | DRG 602 ==
LOC: ED 04:54 → 2S 06:27 → SUATTDRO 06:27 → 2S 07:49 → 3N 12-25 11:32